=== PATIENT | male | born 1935 | race Caucasian/White ===

== ENCOUNTER 2017-04-16 00:20 | Inpatient (IN) ==
[2017-04-16] MEDS ORDERED: Naloxone 0.4 MG/ML INJ IVP PRN (00:24)
[2017-04-16] MEDS ORDERED: Ipratropium/Albuterol Neb 3 ML IH PRN (00:28)
[2017-04-16] MEDS ORDERED: Lacri-Lube 3.5 GM TUBE BOTH EYES PRN (00:47)
[2017-04-16] MEDS ORDERED: Dextrose Gel 15 GM PO PRN ×2 (00:58)
[2017-04-16] MEDS ORDERED: *HR* Dextrose 50 % in Water (Syg) 50 ML SYRINGE IVP PRN (00:58)
[2017-04-16] MEDS ORDERED: D5% in Water 1,000 ML IVC PRN (00:58)
[2017-04-16 01:28] LABS: ABG Base Excess -5 mEq/L (-2 to 3); ABG HCO3 25 mEq/L (21-27); ABG Oxygen Saturation 87 % (95-98); ABG PCO2 73 mmHg (35-45); ABG PH 7.14 pH Units (7.32-7.45); ABG PO2 71 mmHg (85-104); ABG TCO2 27 mEq/L (20-26); Blood Gas Modality PRVC; Blood Gas PEEP 8 cm H2O; Blood Gas Respiration Rate 14; Blood Gas VT 500 cc
[2017-04-16 01:40] LABS: Basophils % 0.2 %; Eosinophils # 0.1 K/mcL (0.0-0.6); Eosinophils % 0.5 %; Hematocrit 30.5 % (37.5-50.1); Hemoglobin 8.9 g/dL (12.9-16.9); Immature Platelets 3.7 % (1.1-6.1); Lymphocytes # 0.8 K/mcL (0.6-4.6); Lymphocytes % 6.6 %; Mean Corpuscular HGB Conc 29.2 g/dL (31.6-35.5); Mean Corpuscular Hemoglobin 24.7 pg (28.0-33.3); Mean Corpuscular Volume 84.7 fL (83.0-100.0); Mean Platelet Volume 10.3 fL (9.4-12.4); Monocytes # 0.9 K/mcL (0.0-1.3); Monocytes % 7.1 %; Neutrophils # 10.3 K/mcL (1.6-8.9); Platelet Count 236 K/mcL (140-400); Red Cell Distribution Width 16.7 % (11.5-14.5); Segmented Neutrophils % 84.6 %
--- NOTE | 2017-04-16 01:40 | Internal Med History&Physical ---
Date of Encounter: 04/16/17 Time of Encounter: 01:31 Assessment and Plan (1) Cardiac arrest Current visit: Yes Status: Acute likely 2/2 to COPD flare in the setting of medical co-morbidities Cooling protocol check TTE trend trop, repeat labs and coags cards, PCCM to assist in care. D/w [place] ED who communicated with cards, conservative management for now -felt EKG changes 2/2 respiratory pulm process recheck EKG in the a.m (2) Acute respiratory failure Current visit: Yes Status: Acute intubated duonebs IV steroids IV cefepime check ABG Repeat CXR , consider diuresis in the a.m. Hold IVF for now Qualifiers: Respiratory failure complication: hypoxia and hypercapnia Qualified Code(s) : J96.01 - Acute respiratory failure with hypoxia; J96.02 - Acute respiratory failure with hypercapnia; J96.02 - Acute respiratory failure with hypercapnia; J96.02 - Acute respiratory failure with hypercapnia (3) DMII (diabetes mellitus, type 2) Current visit: Yes Status: Acute insulin Qualifiers: Diabetes mellitus complication status: without complication Qualified Code( s): E11.9 - Type 2 diabetes mellitus without complications Internal Medicine - H&P: HPI Chief complaint: SOB History of present illness: Mr Cárdenas is a 81 yo male with hx of CAD s/ CABG, COPD, DMII, PAD who presents as a transfer from [facility] with respiratory failure c/b cardiac arrest s/p CPR, epinephrine with ROSC. Patient is intubated and is unable to provide hx. However, piece-meal hx obtained suggested that he push his medi-alert bracelet for SOB. EMS arrived on scene and found him to be in some respiratory distress but is talking and alert. While attempting to package patient to [place] ED, he went into cardiac arrrest. Intubation was attempted on arrival at [facility] before going into cardiac arrest again - drugs (epi,bicarb) and CPR. No shocks reported. I discussed the case with Dr Alvarez who had contacted cardiology business transformation analyst to discuss 2 EKG with recommendations for close support care at this time XR/XR chest 1V portable IMPRESSION: 1. The endotracheal tube tip is 5-6 cm above the haile. 2. Enteric tube in good position in the stomach. 3. Extensive bilateral airspace disease likely represents pulmonary edema though superimposed pneumonia could be present in the left perihilar region. EKG reviewed by self with 94, ST segment depression V3,4,5,6 Initial blood work revealed severe acidosis with pH 6.99, Bicarb 17 suggesting acute hypercarbia. Also has CKD wih some worsening of Cr to 2.44. Trop 0.16 Past Med Surg Social Fam HX - Past Medical History Medical history: non-contributory Psychiatric history: anxiety, depression - Past Surgical History Surgical History: appendectomy, colectomy, coronary bypass (CABG), orthopedic, other - Social History Smoking Status: Never smoker Smokeless Tobacco Status: No Alcohol use: rarely Drug use: none - Additional Family History Additional family history: HTN Internal Medicine - H&P: Meds Amiodarone HCl [Pacerone] 200 mg PO DAILY 02/04/16 [History] Atorvastatin Calcium 40 mg PO DAILY 02/04/16 [History] Exenatide [Byetta] 1.2 mcg SQ DAILY 02/04/16 [History] Levothyroxine [Synthroid] 50 mcg PO DAILY 02/04/16 [History] Sertraline [Zoloft] 50 mg PO DAILY 02/04/16 [History] Warfarin [Coumadin] 2.5 mg PO DAILY 02/04/16 [History] Warfarin [Coumadin] 5 mg PO DAILY 02/04/16 [History] Albuterol Neb [Proventil Neb] 2.5 mg IH Q2H PRN #0 inhsol 02/09/16 [Rx] Glimepiride [Amaryl] 2 mg PO 0730 tablet 02/09/16 [Rx] Insulin LISPRO [HumaLOG] 0 units SQ HS vial 02/09/16 [Rx] Insulin LISPRO [HumaLOG] 0 units SQ TIDAC vial 02/09/16 [Rx] Ipratropium/Albuterol Neb [Duoneb] 3 ml IH [id number] PRN #0 inhsol 02/09/16 [Rx] Patient Taking Own Medication 5 each SQ DAILY each 02/09/16 [Rx] Allopurinol [Zyloprim] 200 mg PO DAILY #60 tablet 02/19/16 [Rx] Ascorbic Acid [Vitamin C] 500 mg PO 0630 #30 tablet 02/19/16 [Rx] Ascorbic Acid [Vitamin C] 500 mg PO DAILY@0630 #30 tablet 02/19/16 [Rx] Bumetanide [Bumex] 1.5 mg PO DAILY #45 tablet 02/19/16 [Rx] Carvedilol [Coreg] 6.25 mg PO BIDWM #60 tablet 02/19/16 [Rx] Cholecalciferol (D-3) [Vitamin D] 2,000 unit PO DAILY #60 tablet 02/19/16 [Rx] Ferrous Sulfate 325 mg PO 0630 #30 tablet 02/19/16 [Rx] Isosorbide MONOnitrate (24 HR) [Imdur] 30 mg PO DAILY #30 tab.er.24h 02/19/16 [ Rx] 3 Allergy/AdvReac Type Severity Reaction Status Date / Time No Known Allergies Allergy Unverified 11/12/15 07:44 All Systems PM: A 10-system review of systems was performed and is negative for pertinent findings except as documented above in the HPI. Review of systems: ROS unable to obtain due to intubated, sedated state - Constitutional Vitals: Resp BP Pulse Ox 14 131/72 92 04/16/17 00:30 04/16/17 00:30 04/16/17 00:30 Exam: General - Intubated, not responsive Eyes - NEETU. Eye lids intact. No scleral icterus Neuro - Intubated, not responsive Heart - Sinus. RRR. S1 and S2 present. No added HS/murmurs appreciated. No elevated JVD appreciated. Lung - Adequate air entry b/l, Coarse ventilator BS. No crackles/wheezes appreciated GI - Soft, non-tender. No hepatosplenomegaly/ascites. BS+ - No CVA/suprapubic tenderness or palpable bladder distension Skin - Intact. No rash/petechiae/ecchymosis. Warm extremities MSK - Joints with normal ROM. No joint swellings Internal Med - H&P Results - ABG Interpretation ABG results: 04/16/17 01:24 ABG pH 7.14 L* D ABG pCO2 73 H* ABG pO2 71 L D ABG HCO3 25 ABG Total CO2 27 H ABG O2 Saturation 87 L ABG Base Excess -5 L
[2017-04-16 01:44] LABS: INR 1.6; Prothrombin Time 17.5 Seconds (9.4-12.1)
[2017-04-16 01:47] LABS: Activated Partial Thrombo Time 58.2 Seconds (26.0-36.0)
[2017-04-16 01:53] LABS: Albumin 2.4 g/dL (3.5-5.0); Albumin/Globulin Ratio 0.5 (1.1-2.2); Bilirubin,Total 0.7 mg/dL (0.2-1.2); Calcium 8.8 mg/dL (8.6-10.8); Globulin 4.4 g/dL (2.4-3.5); Total Protein 6.8 g/dL (6.0-8.3)
[2017-04-16] MEDS ORDERED: Cefepime HCl 2,000 MG in D5% in Water (Mini-Bag+) 100 ML IVPB SCH (02:00)
[2017-04-16 02:13] LABS: Potassium 6.7 mEq/L (3.5-4.5)
[2017-04-16] MEDS ORDERED: *HR* Dextrose 50 % in Water (Syg) 50 ML SYRINGE IVP ONE (02:17)
[2017-04-16] MEDS ORDERED: Calcium Chloride 1,000 MG in 0.9 % Sodium Chloride 100 ML IVPB ONE (02:17)
[2017-04-16] MEDS ORDERED: Insulin Human Regular 10 UNIT in 0.9 % Sodium Chloride 10 ML IV ONE (02:17)
[2017-04-16] MEDS: Cefepime HCl 2,000 MG in Water for inj. (sterile) 20 ML IVP SCH ×2 (02:31→13:58)
[2017-04-16] MEDS: Ipratropium/Albuterol Neb 3 ML IH SCH ×6 (03:08→23:26)
[2017-04-16 04:10] LABS: ABG Base Excess -2 mEq/L (-2 to 3); ABG HCO3 26 mEq/L (21-27); ABG Oxygen Saturation 89 % (95-98); ABG PCO2 67 mmHg (35-45); ABG PO2 71 mmHg (85-104); ABG TCO2 28 mEq/L (20-26); Blood Gas Modality PRVC; Blood Gas PEEP 8 cm H2O; Blood Gas Respiration Rate 18; Blood Gas VT 600 cc
[2017-04-16] MEDS: MethylPREDNISolone 40 MG/ML VIAL IVP SCH ×3 (05:08→18:36)
[2017-04-16] MEDS: FentaNYL (PF) 1,000 MCG in 0.9 % Sodium Chloride 80 ML IVC SCH ×2 (05:08→17:31)
[2017-04-16] MEDS: Lacri-Lube 3.5 GM TUBE BOTH EYES SCH ×5 (05:39→19:58)
[2017-04-16] MEDS: Insulin LISPRO 300 UNITS/3 ML VIAL SQ SCH ×4 (05:42→20:02)
[2017-04-16] MEDS ORDERED: Famotidine 20 MG/2 ML VIAL IVP SCH (06:00)
[2017-04-16] MEDS ORDERED: Aminoglycoside Consult 1 EACH MC ONE (07:39)
[2017-04-16] MEDS: Chlorhexidine Rinse 15 ML MOUTHWASH MM SCH ×2 (08:08→19:59)
[2017-04-16 08:11] LABS: INR 1.6; Prothrombin Time 17.7 Seconds (9.4-12.1)
[2017-04-16 08:14] LABS: Activated Partial Thrombo Time 30.9 Seconds (26.0-36.0)
[2017-04-16] MEDS ORDERED: Sodium Bicarbonate 150 MEQ in D5% in Water 1,000 ML IVC SCH (08:15)
[2017-04-16] MEDS: 0.9 % Sodium Chloride 1,000 ML IVC SCH ×2 (08:15→20:03)
[2017-04-16] MEDS ORDERED: *HR* Heparin 5,000 UNIT/ML VIAL IVP ONE (08:19)
[2017-04-16] MEDS ORDERED: *HR* Heparin 5,000 UNIT/ML VIAL IVP PRN ×2 (08:19)
[2017-04-16 08:31] LABS: Albumin 2.4 g/dL (3.5-5.0); Albumin/Globulin Ratio 0.6 (1.1-2.2); Bilirubin,Direct 0.5 mg/dL (0.0-0.5); Bilirubin,Indirect 0.4 mg/dL (0.0-1.2); Bilirubin,Total 0.9 mg/dL (0.2-1.2); Calcium 9.6 mg/dL (8.6-10.8); Globulin 3.9 g/dL (2.4-3.5); Phosphorous 2.7 mg/dL (2.3-4.7); Total Protein 6.3 g/dL (6.0-8.3)
[2017-04-16 08:33] LABS: Potassium 5.6 mEq/L (3.5-4.5)
[2017-04-16 08:43] LABS: Basophils % 0.1 %; Hematocrit 26.7 % (37.5-50.1); Hemoglobin 7.9 g/dL (12.9-16.9); Immature Granulocytes % 0.7 % (0-4); Lymphocytes # 0.4 K/mcL (0.6-4.6); Lymphocytes % 4.3 %; Mean Corpuscular HGB Conc 29.6 g/dL (31.6-35.5); Mean Corpuscular Hemoglobin 24.3 pg (28.0-33.3); Mean Corpuscular Volume 82.2 fL (83.0-100.0); Mean Platelet Volume 11.2 fL (9.4-12.4); Monocytes # 0.4 K/mcL (0.0-1.3); Monocytes % 4.5 %; Neutrophils # 8.7 K/mcL (1.6-8.9); Nucleated Red Blood Cells 0.2 /100 WBC (0); Platelet Count 204 K/mcL (140-400); Red Blood Count 3.25 M/mcL (4.19-5.50); Red Cell Distribution Width 16.6 % (11.5-14.5); Segmented Neutrophils % 90.4 %
[2017-04-16] MEDS ORDERED: Aspirin 325 MG TABLET PO SCH (09:00)
[2017-04-16] MEDS ORDERED: Vancomycin 1,750 MG in D5% in Water 250 ML IVPB SCH (09:00)
[2017-04-16] MEDS ORDERED: Vancomycin 1,750 MG in D5% in Water 500 ML IVPB SCH (09:00)
[2017-04-16] MEDS: Heparin 25,000 UNIT/500 ML D5W 25,000 UNIT/500 ML BAG IVC SCH (09:14)
[2017-04-16] MEDS: Docusate Oral Soln 100 MG/10 ML UDC GTUBE SCH ×2 (09:18→19:58)
--- NOTE | 2017-04-16 10:31 | Nephrology Consult Note ---
Date of Encounter: 04/16/17 Time of Encounter: 10:16 Assessment and Plan (1) Acute renal failure (ARF) Current Visit: Yes Status: Acute 1. ARF; has ATN sec to hypotension from Cardiac arrest. Has underlying CKD with baseline cr of 1.7-2. Oligoanuric with urine output of 10 ML serum potassium is improving from 6.7 to 5.6 combination of respiration and metabolic acidosis on admission. PH, PCO2 and bicarb are improving Check UA, Renal ultrasound, continue IV fluids with bicarb repeat potassium today. Follow-up Renal panel in a.m. no acute indication for HD today, will need in the next few days if renal function does not improve 2. cardiopulmonary arrest. Has NSTEMI. Troponin trended upto 24. pend 2d echo. on Iv heparin. CXR; improving air space disease Qualifiers: Acute renal failure type: with acute tubular necrosis Qualified Code(s): N17.0 - Acute kidney failure with tubular necrosis History of Present Illness - Reason for Consult Acute Kidney Injury - Chief Complaint ARF - History of Present Illness Pt is a 81-year-old male with CAD, CABG, COPD, diabetes, PAD and CKD. History obtained from chart. EMS was dispatched for shortness of breath. Pt was found to be in cardiopulmonary arrest, did not require shock, CPR was done and taken to [place] [facility]. ABG; pH 6.9, PCO2 72, bicarb 18 done while pt was being bagged. BP 136/83, pulse 77 He was intubated, had another episode of cardiac arrest during incubation. Received Epi and sodium bicarb. Labs significant for; creatinine 2.4, potassium 6.6, bicarb 17, BUN 46, troponin 0.16 chest x-ray; joe air space disease, pulmonary edema/pneumonia 12 lead EKG; ST depression in anterio lateral leads received calcium chloride, insulin D50 and PO kayexalate once at [facility], IV heparin was started and transferred to [place] ICU. He was Currently on fentanyl, IV heparin, D5W with 1 AMP of sodium bicarb at 100 ml/hr Past Med Surg Social Fam HX - Past Medical History Medical history: non-contributory Psychiatric history: anxiety, depression - Past Surgical History Surgical History: appendectomy, colectomy, coronary bypass (CABG), orthopedic, other - Social History Smoking Status: Never smoker Smokeless Tobacco Status: No Alcohol use: rarely Drug use: none Medications and Allergies Amiodarone HCl [Pacerone] 200 mg PO DAILY 02/04/16 [History] Atorvastatin Calcium 40 mg PO DAILY 02/04/16 [History] Exenatide [Byetta] 1.2 mcg SQ DAILY 02/04/16 [History] Levothyroxine [Synthroid] 50 mcg PO DAILY 02/04/16 [History] Sertraline [Zoloft] 50 mg PO DAILY 02/04/16 [History] Warfarin [Coumadin] 2.5 mg PO DAILY 02/04/16 [History] Warfarin [Coumadin] 5 mg PO DAILY 02/04/16 [History] Albuterol Neb [Proventil Neb] 2.5 mg IH Q2H PRN #0 inhsol 02/09/16 [Rx] Glimepiride [Amaryl] 2 mg PO 0730 tablet 02/09/16 [Rx] Insulin LISPRO [HumaLOG] 0 units SQ HS vial 02/09/16 [Rx] Insulin LISPRO [HumaLOG] 0 units SQ TIDAC vial 02/09/16 [Rx] Ipratropium/Albuterol Neb [Duoneb] 3 ml IH [id number] PRN #0 inhsol 02/09/16 [Rx] Patient Taking Own Medication 5 each SQ DAILY each 02/09/16 [Rx] Allopurinol [Zyloprim] 200 mg PO DAILY #60 tablet 02/19/16 [Rx] Ascorbic Acid [Vitamin C] 500 mg PO 0630 #30 tablet 02/19/16 [Rx] Ascorbic Acid [Vitamin C] 500 mg PO DAILY@0630 #30 tablet 02/19/16 [Rx] Bumetanide [Bumex] 1.5 mg PO DAILY #45 tablet 02/19/16 [Rx] Carvedilol [Coreg] 6.25 mg PO BIDWM #60 tablet 02/19/16 [Rx] Cholecalciferol (D-3) [Vitamin D] 2,000 unit PO DAILY #60 tablet 02/19/16 [Rx] Ferrous Sulfate 325 mg PO 0630 #30 tablet 02/19/16 [Rx] Isosorbide MONOnitrate (24 HR) [Imdur] 30 mg PO DAILY #30 tab.er.24h 02/19/16 [ Rx] 3 Allergy/AdvReac Type Severity Reaction Status Date / Time No Known Allergies Allergy Unverified 11/12/15 07:44 Review of Systems ROS unobtainable: due to endotracheal tube, other Exam - Vital Signs Vital signs: Initial Vital Signs Resp BP Pulse Ox 14 131/72 92 04/16/17 00:30 04/16/17 00:30 04/16/17 00:30 Vital Signs - Last 8 Hours Temp Pulse Resp BP Pulse Ox 04/16/17 08:05 69 22 114/54 95 04/16/17 07:50 98.0 F 04/16/17 07:34 58 98 04/16/17 07:19 60 22 114/54 97 04/16/17 06:00 78 18 99/50 95 04/16/17 05:25 22 134/64 95 04/16/17 05:05 98 F 04/16/17 05:00 94 21 127/68 92 04/16/17 04:00 97 18 125/69 93 04/16/17 03:08 18 146/66 95 04/16/17 03:00 97.6 F 98 18 146/66 97 Intake and Output 04/15/17 04/16/17 04/16/17 23:59 07:59 15:59 Intake Total 143.4 / 143.4 Output Total 0 / 0 Balance 143.4 / 143.4 Intake: IV Fluids 143.4 / 143.4 HumuLIN R 10 UNIT In Normal 10.1 / 10.1 Saline Flush 10 ML @ 1212 mls/ hr IV ONCE ONE Rx#:[id number] FentaNYL (PF) 1,000 MCG In 0.9 3.3 / 3.3 % Sodium Chloride 80 ML @ 50 MCG/HR 5 mls/hr IVC CONT RADHA Rx #:[id number] Maxipime 2,000 MG In Water for 20 / 20 inj. (sterile) 20 ML @ 300 mls/ hr IVP Q12H [facility] Rx#:[id number] Calcium Chloride 1,000 MG In 0. 110 / 110 9 % Sodium Chloride 100 ML @ 100 mls/hr IVPB ONCE ONE Rx#: [id number] Oral 0 / 0 Output: Urine 0 / 0 Catheter 0 / 0 Other: Weight 119.7 kg Blood Glucose* 213 Patient Weight 04/16/17 23:59 Weight 119.7 kg - General Appearance Exam: CVS; s1s2 present, regular, no murmurs RESP; good air entry, clear anteriorly ABD; soft, BT, BS present, no organomegaly EXT; no edema, PT pulses palpably by Doppler SAMPLE PULLER; intubated and sedated. Trying to move his head spontaneously Results - Lab Results 04/16/17 07:55 04/16/17 07:55 Most recent lab results ABG pH 7.20 pH Units (7.32-7.45) L* 04/16/17 04:04 ABG pCO2 67 mmHg (35-45) H 04/16/17 04:04 ABG pO2 71 mmHg (85-104) L 04/16/17 04:04 ABG HCO3 26 mEq/L (21-27) 04/16/17 04:04 ABG O2 Saturation 89 % (95-98) L 04/16/17 04:04 Calcium 9.6 mg/dL (8.6-10.8) 04/16/17 07:55 Phosphorus 2.7 mg/dL (2.3-4.7) 04/16/17 07:55 Magnesium 2.0 mg/dL (1.6-2.6) 04/16/17 07:55 Consult Discharge Plan - Plan Referrals: Priyank Guajardo MD [Primary Care Provider] -
[2017-04-16 11:55] LABS: ABG Base Excess 0 mEq/L (-2 to 3); ABG HCO3 25 mEq/L (21-27); ABG Oxygen Saturation 95 % (95-98); ABG PCO2 42 mmHg (35-45); ABG PH 7.39 pH Units (7.32-7.45); ABG PO2 77 mmHg (85-104); ABG TCO2 27 mEq/L (20-26); Blood Gas Modality VS; Blood Gas PEEP 10 cm H2O; Blood Gas Respiration Rate 22; Blood Gas VT 600 cc
--- NOTE | 2017-04-16 13:29 | Pulmonology Consult Note ---
<Daysi Palafox - Last Filed: 04/16/17 13:26> Date of Encounter: 04/16/17 Time of Encounter: 08:00 Assessment and Plan (1) Acute and chronic respiratory failure with hypercapnia Current Visit: Yes Status: Acute Cardiac arrest just prior to arrival likely secondary to COPD flare in the setting of medical comorbidities. -Patient's GCS 9, therefore no cooling per protocol. -Cardiology at [facility] prior to arrival recommending conservative management, felt EKG changes were secondary to respiratory/pulmonary process. -Patient currently intubated. -Dual nebs, IV steroids, IV cefepime, IV vancomycin, and IV Flagyl started on April 16. -Follow-up ABGs closely. (2) [id number] kidney injury Current Visit: Yes Status: Acute VAHID likely causing NG acidosis superimposed on respiratory acidosis. -bicarb drip -Await nephrology recommendations Qualifiers: Acute renal failure type: unspecified Chronic kidney disease stage: unspecified stage Qualified Code(s): N17.9 - Acute kidney failure, unspecified ; N18.9 - Chronic kidney disease, unspecified; N18.9 - Chronic kidney disease, unspecified (3) Pulmonary edema Current Visit: Yes Status: Acute CXR 04/16- suspected right PE with increasing right basilar atelectasis or PNA. Improving pulmonary edema -Superimposed PNA- continue broad spectrum Abx coverage with vanc, cefepime, and flagyl as above. Qualifiers: Chronicity: acute Qualified Code(s): J81.0 - Acute pulmonary edema (4) CHF (congestive heart failure) Current Visit: Yes Status: Acute CXR with improving pulmonary edema. Echo on 04/16 LVEF 55-60%. -suspect diastolic dysfunction or new onset systolic dysfunction. -Await cardiology recommendations. -Start low dose heparin per ACS protocol. -Asprin 325 through OG tube. Qualifiers: Congestive heart failure type: diastolic Congestive heart failure chronicity: unspecified congestive heart failure chronicity Qualified Code(s) : I50.30 - Unspecified diastolic (congestive) heart failure (5) COPD (chronic obstructive pulmonary disease) Current Visit: No Status: Acute Continue duonebs and steroids. Qualifiers: COPD type: unspecified COPD Qualified Code(s): J44.9 - Chronic obstructive pulmonary disease, unspecified (6) Elevated troponin Current Visit: No Status: Acute Troponin 44.71 up from 24.7. Heparin drip per ACS protocol. -Await cardiology recommendations (7) Cardiac arrest Current Visit: Yes Status: Acute Patient s/p cardiac arrest en route to [place] [facility] ED x2 receiving two rounds of CPR, epinepherine, and 2 amps of sodium bicarbonate. -Patient still acidotic when arrived on ICU. -Bicarb drip and ventilator management. (8) DVT prophylaxis Current Visit: Yes Status: Acute Patient currently on heparin drip per ACS protocol. - Pepcid for GI prophylaxis History of Present Illness Consult date: 04/16/17 Requesting physician: Reinaldo Castillo Reason for consult: dyspnea Chief complaint: Shortness of breath History of present illness: Mr. Cárdenas is a 81-year-old male with history of coronary artery disease status post CABG, COPD, DM 2, PhD who presents as a transfer from [facility] ED with respiratory failure complicated by cardiac arrest status post CPR with epinephrine resulting in ROSC. Patient is intubated and currently unavailable to provide history. Patient presents to medical alert [facility] and EMS arrived on scene and found him to be in respiratory distress but alert and talking. During transferred to [facility] emergency department, the patient went into cardiac arrest. Intubation was attempted on arrival at [facility] the before going into cardiac arrest again. Epinephrine and bicarbonate were given along with CPR. No shocks were reported. This morning upon arrival to the ICU, the patient's blood pressure has been stable with oxygen saturation in the mid 90s. Patient was given sodium bicarbonate for acidosis on ABG. A sodium bicarbonate drip was also immediately began. Past Med Surg Social Fam HX - Past Medical History Source: old records reviewed Medical history: non-contributory Psychiatric history: anxiety, depression - Past Surgical History Surgical History: appendectomy, colectomy, coronary bypass (CABG), orthopedic, other - Social History Smoking Status: Never smoker Smokeless Tobacco Status: No Alcohol use: rarely Drug use: none Medications and Allergies Amiodarone HCl [Pacerone] 200 mg PO DAILY 02/04/16 [History] Atorvastatin Calcium 40 mg PO DAILY 02/04/16 [History] Exenatide [Byetta] 1.2 mcg SQ DAILY 02/04/16 [History] Levothyroxine [Synthroid] 50 mcg PO DAILY 02/04/16 [History] Sertraline [Zoloft] 50 mg PO DAILY 02/04/16 [History] Warfarin [Coumadin] 2.5 mg PO DAILY 02/04/16 [History] Warfarin [Coumadin] 5 mg PO DAILY 02/04/16 [History] Albuterol Neb [Proventil Neb] 2.5 mg IH Q2H PRN #0 inhsol 02/09/16 [Rx] Glimepiride [Amaryl] 2 mg PO 0730 tablet 02/09/16 [Rx] Insulin LISPRO [HumaLOG] 0 units SQ HS vial 02/09/16 [Rx] Insulin LISPRO [HumaLOG] 0 units SQ TIDAC vial 02/09/16 [Rx] Ipratropium/Albuterol Neb [Duoneb] 3 ml IH [id number] PRN #0 inhsol 02/09/16 [Rx] Patient Taking Own Medication 5 each SQ DAILY each 02/09/16 [Rx] Allopurinol [Zyloprim] 200 mg PO DAILY #60 tablet 02/19/16 [Rx] Ascorbic Acid [Vitamin C] 500 mg PO 0630 #30 tablet 02/19/16 [Rx] Ascorbic Acid [Vitamin C] 500 mg PO DAILY@0630 #30 tablet 02/19/16 [Rx] Bumetanide [Bumex] 1.5 mg PO DAILY #45 tablet 02/19/16 [Rx] Carvedilol [Coreg] 6.25 mg PO BIDWM #60 tablet 02/19/16 [Rx] Cholecalciferol (D-3) [Vitamin D] 2,000 unit PO DAILY #60 tablet 02/19/16 [Rx] Ferrous Sulfate 325 mg PO 0630 #30 tablet 02/19/16 [Rx] Isosorbide MONOnitrate (24 HR) [Imdur] 30 mg PO DAILY #30 tab.er.24h 02/19/16 [ Rx] 3 Allergy/AdvReac Type Severity Reaction Status Date / Time No Known Allergies Allergy Unverified 11/12/15 07:44 ROS unobtainable: due to endotracheal tube All Systems: A 10-system review of systems was performed and is negative for pertinent findings except as documented above in the HPI. Physical Examination Vital Signs: Vital Signs, Last 4 Hours Temp Pulse Resp BP Pulse Ox 04/16/17 12:18 99.1 F 04/16/17 11:11 58 22 122/37 96 12/03/17 11:06 22 122/37 96 04/16/17 10:23 60 22 131/39 96 General appearance: comatose (Sedated and intubated) Eyes: nonicteric ENT: oropharynx moist Neck: supple Effort: other (Intubated) Auscultation: bilateral: rales Cardiovascular: regular rate and rhythm, other (Patient with large scar over the mediastinum consistent with CABG.) Gastrointestinal: normoactive bowel sounds, soft, non-distended Integumentary: normal Extremities: no cyanosis, no edema, pulses normal unable to assess due to mental status Ventilator Settings Ventilator Settings: Ventilator Settings, Last 8 Hours Ventilator Mode VC+ Ventilator Mode VC+ Ventilator Mode VC+ Ventilator Mode VC+ Ventilator Mode VC+ Ventilator Mode VC+ Ventilator Mode VC+ Ventilator Mode VC+ Ventilator Mode VC+ Ventilator Mode VC+ Ventilator Tidal Volume 600 Setting Ventilator Tidal Volume 600 Setting Ventilator Tidal Volume 600 Setting Ventilator Tidal Volume 600 Setting Ventilator Tidal Volume 600 Setting Ventilator Tidal Volume 600 Setting Ventilator Tidal Volume 600 Setting Ventilator Tidal Volume 600 Setting Ventilator Tidal Volume 600 Setting Ventilator Tidal Volume 600 Setting Ventilator Respiratory Rate 22 Setting Ventilator Respiratory Rate 22 Setting Ventilator Respiratory Rate 22 Setting Ventilator Respiratory Rate 22 Setting Ventilator Respiratory Rate 22 Setting Ventilator Respiratory Rate 22 Setting Ventilator Respiratory Rate 22 Setting Ventilator Respiratory Rate 22 Setting Ventilator Respiratory Rate 18 Setting Ventilator Respiratory Rate 18 Setting Actual Respiratory Rate 22 Actual Respiratory Rate 22 Actual Respiratory Rate 22 Actual Respiratory Rate 22 Actual Respiratory Rate 22 Actual Respiratory Rate 22 Actual Respiratory Rate 22 Actual Respiratory Rate 22 Actual Respiratory Rate 18 Positive End Expiratory 10 Pressure Positive End Expiratory 10 Pressure Positive End Expiratory 10 Pressure Positive End Expiratory 10 Pressure Positive End Expiratory 10 Pressure Positive End Expiratory 10 Pressure Positive End Expiratory 10 Pressure Positive End Expiratory 10 Pressure Positive End Expiratory 10 Pressure Positive End Expiratory 8 Pressure Peak Inspiratory Airway 39 Pressure Peak Inspiratory Airway 32 Pressure Peak Inspiratory Airway 34 Pressure Peak Inspiratory Airway 33 Pressure Peak Inspiratory Airway 32 Pressure Peak Inspiratory Airway 33 Pressure Peak Inspiratory Airway 42 Pressure Peak Inspiratory Airway 25 Pressure Results - Laboratory Findings CBC and BMP: 04/16/17 07:55 04/16/17 07:55 ABG ABG pH 7.39 pH Units (7.32-7.45) 04/16/17 11:49 ABG pCO2 42 mmHg (35-45) 04/16/17 11:49 ABG pO2 77 mmHg (85-104) L 04/16/17 11:49 ABG O2 Saturation 95 % (95-98) 04/16/17 11:49 PT/INR, D-dimer PT 17.7 Seconds (9.4-12.1) H 04/16/17 07:55 Abnormal lab findings: Abnormal lab results RBC 3.25 M/mcL (4.19-5.50) L 04/16/17 07:55 Hgb 7.9 g/dL (12.9-16.9) L 04/16/17 07:55 Hct 26.7 % (37.5-50.1) L 04/16/17 07:55 MCV 82.2 fL (83.0-100.0) L 04/16/17 07:55 MCH 24.3 pg (28.0-33.3) L 04/16/17 07:55 MCHC 29.6 g/dL (31.6-35.5) L 04/16/17 07:55 RDW 16.6 % (11.5-14.5) H 04/16/17 07:55 Lymphocytes # 0.4 K/mcL (0.6-4.6) L 04/16/17 07:55 Nucleated RBCs/100 WBC 0.2 /100 WBC (0) H 04/16/17 07:55 PT 17.7 Seconds (9.4-12.1) H 04/16/17 07:55 ABG pO2 77 mmHg (85-104) L 04/16/17 11:49 ABG Total CO2 27 mEq/L (20-26) H 04/16/17 11:49 Potassium 5.6 mEq/L (3.5-4.5) H D 04/16/17 07:55 Chloride 114 mEq/L (98-109) H 04/16/17 07:55 BUN 54 mg/dL (8-26) H 04/16/17 07:55 Creatinine 2.98 mg/dL (0.72-1.25) H 04/16/17 07:55 Est GFR ( Amer) 25 (> 60) L 04/16/17 07:55 Est GFR (Non-Af Amer) 20 (> 60) L 04/16/17 07:55 Glucose 187 mg/dL (70-99) H 04/16/17 07:55 POC Glucose 322 (58-89) H 04/16/17 11:50 Calculated Osmolality 320 (280-300) H 04/16/17 07:55 AST 125 Units/L (5-34) H 04/16/17 07:55 ALT 84 Units/L (0-55) H 04/16/17 07:55 Troponin I 24.70 ng/mL (0-0.03) H* 04/16/17 07:55 Albumin 2.4 g/dL (3.5-5.0) L 04/16/17 07:55 Globulin 3.9 g/dL (2.4-3.5) H 04/16/17 07:55 Albumin/Globulin Ratio 0.6 (1.1-2.2) L 04/16/17 07:55 - Clinical Findings Intake & Output: Intake & Output 04/15/17 04/16/17 04/16/17 23:59 07:59 15:59 Intake Total 143.4 / 143.4 Output Total 0 / 0 50 / 50 Balance 143.4 / 143.4 -50 / -50 Weight 119.7 kg Consult Discharge Plan - Plan Referrals: Priyank Guajardo MD [Primary Care Provider] - <Josette Calle S - Last Filed: 04/16/17 15:27> Date of Encounter: 04/16/17 All Systems: A 10-system review of systems was performed and is negative for pertinent findings except as documented above in the HPI. Physical Examination Vital Signs: Vital Signs, Last 4 Hours Temp Pulse Resp BP Pulse Ox 04/16/17 13:30 22 149/43 96 04/16/17 13:00 60 23 149/43 97 04/16/17 12:18 99.1 F 04/16/17 11:11 58 22 122/37 96 04/16/17 11:06 22 122/37 96 Ventilator Settings Ventilator Settings: Ventilator Settings, Last 8 Hours Ventilator Mode VC+ Ventilator Mode VC+ Ventilator Mode VC+ Ventilator Mode VC+ Ventilator Mode VC+ Ventilator Mode VC+ Ventilator Mode VC+ Ventilator Mode VC+ Ventilator Mode VC+ Ventilator Mode VC+ Ventilator Tidal Volume 600 Setting Ventilator Tidal Volume 600 Setting Ventilator Tidal Volume 600 Setting Ventilator Tidal Volume 600 Setting Ventilator Tidal Volume 600 Setting Ventilator Tidal Volume 600 Setting Ventilator Tidal Volume 600 Setting Ventilator Tidal Volume 600 Setting Ventilator Tidal Volume 600 Setting Ventilator Tidal Volume 600 Setting Ventilator Respiratory Rate 22 Setting Ventilator Respiratory Rate 22 Setting Ventilator Respiratory Rate 22 Setting Ventilator Respiratory Rate 22 Setting Ventilator Respiratory Rate 22 Setting Ventilator Respiratory Rate 22 Setting Ventilator Respiratory Rate 22 Setting Ventilator Respiratory Rate 22 Setting Ventilator Respiratory Rate 22 Setting Ventilator Respiratory Rate 18 Setting Actual Respiratory Rate 23 Actual Respiratory Rate 22 Actual Respiratory Rate 22 Actual Respiratory Rate 22 Actual Respiratory Rate 22 Actual Respiratory Rate 22 Actual Respiratory Rate 22 Actual Respiratory Rate 22 Actual Respiratory Rate 22 Positive End Expiratory 10 Pressure Positive End Expiratory 10 Pressure Positive End Expiratory 10 Pressure Positive End Expiratory 10 Pressure Positive End Expiratory 10 Pressure Positive End Expiratory 10 Pressure Positive End Expiratory 10 Pressure Positive End Expiratory 10 Pressure Positive End Expiratory 10 Pressure Positive End Expiratory 10 Pressure Peak Inspiratory Airway 33 Pressure Peak Inspiratory Airway 39 Pressure Peak Inspiratory Airway 32 Pressure Peak Inspiratory Airway 34 Pressure Peak Inspiratory Airway 33 Pressure Peak Inspiratory Airway 32 Pressure Peak Inspiratory Airway 33 Pressure Peak Inspiratory Airway 42 Pressure Results - Laboratory Findings CBC and BMP: 04/16/17 07:55 04/16/17 07:55 ABG ABG pH 7.39 pH Units (7.32-7.45) 04/16/17 11:49 ABG pCO2 42 mmHg (35-45) 04/16/17 11:49 ABG pO2 77 mmHg (85-104) L 04/16/17 11:49 ABG O2 Saturation 95 % (95-98) 04/16/17 11:49 PT/INR, D-dimer PT 17.7 Seconds (9.4-12.1) H 04/16/17 07:55 Abnormal lab findings: Abnormal lab results RBC 3.25 M/mcL (4.19-5.50) L 04/16/17 07:55 Hgb 7.9 g/dL (12.9-16.9) L 04/16/17 07:55 Hct 26.7 % (37.5-50.1) L 04/16/17 07:55 MCV 82.2 fL (83.0-100.0) L 04/16/17 07:55 MCH 24.3 pg (28.0-33.3) L 04/16/17 07:55 MCHC 29.6 g/dL (31.6-35.5) L 04/16/17 07:55 RDW 16.6 % (11.5-14.5) H 04/16/17 07:55 Lymphocytes # 0.4 K/mcL (0.6-4.6) L 04/16/17 07:55 Nucleated RBCs/100 WBC 0.2 /100 WBC (0) H 04/16/17 07:55 PT 17.7 Seconds (9.4-12.1) H 04/16/17 07:55 ABG pO2 77 mmHg (85-104) L 04/16/17 11:49 ABG Total CO2 27 mEq/L (20-26) H 04/16/17 11:49 Potassium 5.6 mEq/L (3.5-4.5) H D 04/16/17 07:55 Chloride 114 mEq/L (98-109) H 04/16/17 07:55 BUN 54 mg/dL (8-26) H 04/16/17 07:55 Creatinine 2.98 mg/dL (0.72-1.25) H 04/16/17 07:55 Est GFR ( Amer) 25 (> 60) L 04/16/17 07:55 Est GFR (Non-Af Amer) 20 (> 60) L 04/16/17 07:55 Glucose 187 mg/dL (70-99) H 04/16/17 07:55 POC Glucose 322 (58-89) H 04/16/17 11:50 Calculated Osmolality 320 (280-300) H 04/16/17 07:55 Uric Acid 10.0 mg/dL (3.5-7.2) H 04/16/17 13:25 AST 125 Units/L (5-34) H 04/16/17 07:55 ALT 84 Units/L (0-55) H 04/16/17 07:55 Troponin I 44.71 ng/mL (0-0.03) H* 04/16/17 13:25 B-Natriuretic Peptide 1199 pg/mL (0-100) H 04/16/17 13:25 Albumin 2.4 g/dL (3.5-5.0) L 04/16/17 07:55 Globulin 3.9 g/dL (2.4-3.5) H 04/16/17 07:55 Albumin/Globulin Ratio 0.6 (1.1-2.2) L 04/16/17 07:55 - Clinical Findings Intake & Output: Intake & Output 04/15/17 04/16/17 04/16/17 23:59 07:59 15:59 Intake Total 143.4 / 143.4 Output Total 0 / 0 50 / 50 Balance 143.4 / 143.4 -50 / -50 Weight 119.7 kg - Attending Attestation I saw the patient with the resident agree with History and Physical exam findings. Labs and Radiology were reviewed Ventilator data were reviewed will adjust TV and RR to lung protective strategy and to optimize Gas Exchange ROOF TECHNICIAN: Patient is intubated and minimally sedated , Post Cardiac arrest , patient has spontaneous movements opens his eyes to verbal commands Pupils slighlty unequal no focal neurological deficit Will get CT scan without contrast NECK : JVD could not be appreciated Pulmonary :Patient has history of COPD , According to history from family doesnt look like COPD exacerbation most likely the sudden distress due to pulmonary edema worsening of diastolic dysfunction secondary to NSTEMI , will do lung protective strategy , will add PEEP 10 , will bring down to FIO2 60% Patient has Mixed both respiratory and non gap acidosis adjusted the vent settings will repeat blood gas Lung mechanics decent no evidence of Auto PEEP will follow lung mechanics . Will hold of diuresis in the setting of Acute on Chronic Kidney injury with possible left heart cath later Cardiac : NSTEMI ACS protocol , ECHO today showed EF 55-60% , suboptimal study wall motion abnormality cannot be seen in the study . Aspirin , Heparin Low intensity protocol . Possible cath today waiting for Crdiology recs Nutrition/GI: NPO /PPI prophylaxis Renal :Acute on Chronic Kidney injury Non gap acidosis will start IV bicarb drip will give 1 liter and stop then we ill reasses the acid base balance Heme onc :All labs reviewed no active signs of bleeding . ID : Patient has possible superimposed infiltrates in the CXR will start on broad spectrum antibiotics to send sputum culture, urine culture , blood culture Musculo skeletal / skin issues : No acute issues Disposition : Critically ill Code status: Full Code Family/POA: Updated Daughter , Brother and Sister . Spent about 40 minutes of Critical care time in medical decision making in supporting the vital organ function and preventing further decline .
[2017-04-16 15:00] LABS: Hemoglobin 7.2 g/dL (12.9-16.9); Mean Corpuscular Hemoglobin 24.2 pg (28.0-33.3); Mean Corpuscular Volume 80.8 fL (83.0-100.0); Mean Platelet Volume 10.6 fL (9.4-12.4); Platelet Count 189 K/mcL (140-400); Red Blood Count 2.97 M/mcL (4.19-5.50); Red Cell Distribution Width 16.7 % (11.5-14.5)
[2017-04-16 15:05] LABS: INR 1.8; Prothrombin Time 19.8 Seconds (9.4-12.1)
[2017-04-16 15:09] LABS: Activated Partial Thrombo Time 63.7 Seconds (26.0-36.0)
[2017-04-16 16:07] LABS: Potassium 4.9 mEq/L (3.5-4.5)
--- NOTE | 2017-04-16 16:42 | Cardiology Consult Note ---
Date of Encounter: 04/16/17 Time of Encounter: 15:30 Assessment and Plan (1) Cardiac arrest Current Visit: Yes Status: Acute Cardiopulmonary arrest likely multifactorial. May have had acute SOB due to diastolic CHF in setting of worsening renal function and hyperkalemia. Also could be COPD exacerbation. Unclear what rhythm pt had upon arrival of EMS, but sounds like may have been PEA. No records available for my review. No rhythms requiring defibrillation per records. EKG does not demonstrate any evidence of STEMI. Cardiac enzymes markedly elevated in setting of cardiopulmonary arrest. At this time, pt not candidate for invasive evaluation due to worsening anemia, acute renal failure, unclear neurologic status. No evidence of shock, echocardiogram demonstrates normal LV function EF 55-60%. Wall motion abnormalities cannot be excluded due to technical limitations of study. Will follow closely. Continue supportive care. Timing of cardiac catheterization pending renal and neurologic status. (2) Non-STEMI (non-ST elevated myocardial infarction) Current Visit: Yes Status: Acute Aggressive medical therapy. Possible LHC pending neurologic and renal status. (3) Coronary artery disease Current Visit: Yes Status: Chronic Qualifiers: Coronary Disease-Associated Artery/Lesion type: [place] artery [place] vs. transplanted heart: [place] heart Associated angina: angina presence unspecified Qualified Code(s): I25.10 - Atherosclerotic heart disease of [place] coronary artery without angina pectoris (4) S/P CABG (coronary artery bypass graft) Current Visit: No Status: Chronic (5) PVD (peripheral vascular disease) Current Visit: No Status: Chronic (6) Acute on chronic renal insufficiency Current Visit: Yes Status: Acute Nephrology following. (7) COPD (chronic obstructive pulmonary disease) Current Visit: Yes Status: Chronic Qualifiers: COPD type: unspecified COPD Qualified Code(s): J44.9 - Chronic obstructive pulmonary disease, unspecified (8) Hyperkalemia Current Visit: Yes Status: Acute Being corrected by nephrology and primary team. (9) Respiratory failure Current Visit: Yes Status: Acute Currently on mechanical ventilation. Pulmonary following. Qualifiers: Chronicity: acute Respiratory failure complication: hypoxia and hypercapnia Qualified Code(s): J96.01 - Acute respiratory failure with hypoxia ; J96.02 - Acute respiratory failure with hypercapnia; J96.02 - Acute respiratory failure with hypercapnia; J96.02 - Acute respiratory failure with hypercapnia Discussion w patient/family: The assessment and plan as outlined above was discussed with the patient and/or family members who expressed understanding and agreement. All questions were answered. Thank you for involving us in the care of your patient. Please call with any questions. History of Present Illness Consult date: 04/16/17 Consult reason: cardiac arrest Chief complaint: cardiopulmonary arrest History of present illness: Mr. Cárdenas is a 81 year old male with CAD s/p CABG, PVD, COPD, DM, PAF presents as transfer from [facility] after cardiopulmonary arrest. Pt currently intubated, sedated and unable to provide any history. All history obtained from medical records, current chart. Per records, pt had SOB while at home and activated medical alert. Per [place] [facility] notes, pt was unresponsive and in cardiac arrest upon arrival with bystander CPR. Also per [place] ED notes, pt had 20min downtime before ACLS arrival. Reportedly received CPR, epinephrine x2 prior to arrival at [place] ED. No defibrillation. Had ROSC prior to arrival at [facility] with Adams airway in place. No EMS records available for my review. While at [place] ED, had emergent intubation. During intubation, pt had bradycardia and ?PEA- had CPR, epinephrine, bicarb with ROSC. Initial EKG demonstrated idioventricular rhythm. Repeat EKG demonstrated sinus tachycardia with ST depression in precordial leads. Noted to be hyperkalemic with K+ 6.6 and Cr 2.44. Hb 8.8. Initial ABG 6.99/72 /114/18. Transferred to [facility] for further evaluation/tx. Has known history of CAD. [place] CAB[place] [address] Rafat DELEON to LAD, seq SVG to diag 2, OM1, SVG to R PDA. Also has known PVD- fem-fem bypass as well as known L subclavian stenosis. Past Med Surg Social Fam HX - Past Medical History Source: old records reviewed, nursing notes reviewed Medical history: COPD, coronary artery disease, CVA, diabetes, hyperlipidemia, hypertension, peripheral artery disease, renal disease Psychiatric history: anxiety, depression - Past Surgical History Surgical History: appendectomy, cholecystectomy, colectomy, coronary bypass ( CABG), LE Bypass, orthopedic, other, vascular surgery - Social History Smoking Status: Former smoker (former 2ppd x 30years) Smokeless Tobacco Status: No Alcohol use: rarely Drug use: none - Family History Father Living Status: Hx Family Cardiac Disorders: Yes ([place]) Medications and Allergies Amiodarone HCl [Pacerone] 200 mg PO DAILY 02/04/16 [History] Atorvastatin Calcium 40 mg PO DAILY 02/04/16 [History] Exenatide [Byetta] 1.2 mcg SQ DAILY 02/04/16 [History] Levothyroxine [Synthroid] 50 mcg PO DAILY 02/04/16 [History] Sertraline [Zoloft] 50 mg PO DAILY 02/04/16 [History] Warfarin [Coumadin] 2.5 mg PO DAILY 02/04/16 [History] Warfarin [Coumadin] 5 mg PO DAILY 02/04/16 [History] Albuterol Neb [Proventil Neb] 2.5 mg IH Q2H PRN #0 inhsol 02/09/16 [Rx] Glimepiride [Amaryl] 2 mg PO 0730 tablet 02/09/16 [Rx] Insulin LISPRO [HumaLOG] 0 units SQ HS vial 02/09/16 [Rx] Insulin LISPRO [HumaLOG] 0 units SQ TIDAC vial 02/09/16 [Rx] Ipratropium/Albuterol Neb [Duoneb] 3 ml IH [id number] PRN #0 inhsol 02/09/16 [Rx] Patient Taking Own Medication 5 each SQ DAILY each 02/09/16 [Rx] Allopurinol [Zyloprim] 200 mg PO DAILY #60 tablet 02/19/16 [Rx] Ascorbic Acid [Vitamin C] 500 mg PO 0630 #30 tablet 02/19/16 [Rx] Ascorbic Acid [Vitamin C] 500 mg PO DAILY@0630 #30 tablet 02/19/16 [Rx] Bumetanide [Bumex] 1.5 mg PO DAILY #45 tablet 02/19/16 [Rx] Carvedilol [Coreg] 6.25 mg PO BIDWM #60 tablet 02/19/16 [Rx] Cholecalciferol (D-3) [Vitamin D] 2,000 unit PO DAILY #60 tablet 02/19/16 [Rx] Ferrous Sulfate 325 mg PO 0630 #30 tablet 02/19/16 [Rx] Isosorbide MONOnitrate (24 HR) [Imdur] 30 mg PO DAILY #30 tab.er.24h 02/19/16 [ Rx] 3 Allergy/AdvReac Type Severity Reaction Status Date / Time No Known Allergies Allergy Unverified 11/12/15 07:44 ROS unobtainable: due to endotracheal tube All Systems Review: A 10-system review of systems was performed and is negative for pertinent findings except as documented above in the HPI. Physical Examination Vital Signs, Last 4 Hours Temp Pulse Resp BP Pulse Ox 04/16/17 15:53 98.4 F 04/16/17 15:02 22 120/42 95 04/16/17 15:00 63 22 120/42 96 04/16/17 14:00 68 22 125/38 95 04/16/17 13:30 22 149/43 96 04/16/17 13:00 60 23 149/43 97 04/16/17 12:18 99.1 F General: Other (intubated, sedated on mechanical ventilation) HEENT: Atraumatic, Normocephaly, Mucus Membranes Moist Neck: No JVD, Normal carotid pulses Cardiac: Reg Rate and Rhythm, Normal S1 and S2, No Murmur Lungs: Other (decreased breath sounds b/l) Neuro: Other (intubated, sedated, opens eyes spontaneously) Abdomen: Soft, Non-Tender Skin: No rashes noted on visualized skin Musculoskeletal: No Chest Wall Tenderness Extremities: No Clubbing, No Cyanosis, No Edema, Other (unable to palpate LE pulses; has doppler PT pulses b/l; 1+ radial pulse on R, unable to palpate L radial pulse) Results 04/16/17 14:50 04/16/17 13:25 Lab Results 04/16/17 04/16/17 04/16/17 01:32 01:32 01:32 WBC 12.2 H Hgb 8.9 L Hct 30.5 L Plt Count 236 INR 1.6 APTT 58.2 H D Sodium Potassium Chloride Carbon Dioxide BUN Creatinine Glucose Calcium Magnesium Total Bilirubin AST ALT Alkaline Phosphatase Troponin I 1.84 H* B-Natriuretic Peptide 04/16/17 04/16/17 04/16/17 01:32 07:55 07:55 WBC 9.6 Hgb 7.9 L Hct 26.7 L Plt Count 204 INR APTT Sodium 140 145 Potassium 6.7 H* 5.6 H D Chloride 113 H 114 H Carbon Dioxide 19 24 BUN 47 H 54 H Creatinine 2.45 H 2.98 H Glucose 208 H 187 H Calcium 8.8 9.6 Magnesium 2.0 Total Bilirubin 0.7 0.9 AST 113 H 125 H ALT 91 H 84 H Alkaline Phosphatase 102 91 Troponin I B-Natriuretic Peptide 04/16/17 04/16/17 04/16/17 07:55 07:55 13:25 WBC Hgb Hct Plt Count INR 1.6 APTT 30.9 Sodium Potassium Chloride Carbon Dioxide BUN Creatinine Glucose Calcium Magnesium Total Bilirubin AST ALT Alkaline Phosphatase Troponin I 24.70 H* 44.71 H* B-Natriuretic Peptide 04/16/17 04/16/17 04/16/17 13:25 13:25 14:50 WBC 8.5 Hgb 7.2 L Hct 24.0 L Plt Count 189 INR APTT Sodium Potassium 4.9 H Chloride Carbon Dioxide BUN Creatinine Glucose Calcium Magnesium Total Bilirubin AST ALT Alkaline Phosphatase Troponin I B-Natriuretic Peptide 1199 H 04/16/17 14:50 WBC Hgb Hct Plt Count INR 1.8 APTT 63.7 H D Sodium Potassium Chloride Carbon Dioxide BUN Creatinine Glucose Calcium Magnesium Total Bilirubin AST ALT Alkaline Phosphatase Troponin I B-Natriuretic Peptide Consult Discharge Plan - Plan Referrals: Priyank Guajardo MD [Primary Care Provider] -
[2017-04-16] MEDS: MetroNIDAZOLE 500 MG/100 ML 500 MG/100 ML BAG IVPB SCH (16:47)
[2017-04-16 16:54] LABS: Potassium 4.7 mEq/L (3.5-4.5)
[2017-04-16 17:53] LABS: Thyroid Stimulating Hormone 3.015 mcIU/mL (0.350-4.840)
[2017-04-16] MEDS ORDERED: Furosemide 20 MG/2 ML VIAL IVP ONE (18:19)
[2017-04-16 19:15] LABS: Potassium 4.1 mEq/L (3.5-4.5)
[2017-04-16 21:03] LABS: ABG Base Excess 1 mEq/L (-2 to 3); ABG HCO3 26 mEq/L (21-27); ABG Oxygen Saturation 92 % (95-98); ABG PCO2 44 mmHg (35-45); ABG PH 7.39 pH Units (7.32-7.45); ABG PO2 66 mmHg (85-104); ABG TCO2 28 mEq/L (20-26); Blood Gas Modality PRVC; Blood Gas PEEP 12 cm H2O; Blood Gas Respiration Rate 22; Blood Gas VT 600 cc
[2017-04-17] MEDS: MethylPREDNISolone 40 MG/ML VIAL IVP SCH ×4 (00:10→17:48)
[2017-04-17] MEDS: MetroNIDAZOLE 500 MG/100 ML 500 MG/100 ML BAG IVPB SCH ×3 (00:10→17:47)
[2017-04-17] MEDS: Lacri-Lube 3.5 GM TUBE BOTH EYES SCH ×7 (00:11→23:55)
[2017-04-17] MEDS: Insulin LISPRO 300 UNITS/3 ML VIAL SQ SCH ×7 (00:11→23:55)
[2017-04-17] MEDS: FentaNYL (PF) 1,000 MCG in 0.9 % Sodium Chloride 80 ML IVC SCH ×3 (01:21→22:20)
[2017-04-17] MEDS: Cefepime HCl 2,000 MG in Water for inj. (sterile) 20 ML IVP SCH (02:48)
[2017-04-17 03:16] LABS: Basophils % 0.1 %; Hematocrit 22.6 % (37.5-50.1); Immature Granulocytes % 0.4 % (0-4); Lymphocytes # 0.7 K/mcL (0.6-4.6); Mean Corpuscular Hemoglobin 24.6 pg (28.0-33.3); Mean Corpuscular Volume 79.6 fL (83.0-100.0); Mean Platelet Volume 10.7 fL (9.4-12.4); Monocytes # 0.5 K/mcL (0.0-1.3); Neutrophils # 8.9 K/mcL (1.6-8.9); Platelet Count 193 K/mcL (140-400); Red Blood Count 2.84 M/mcL (4.19-5.50); Red Cell Distribution Width 17.2 % (11.5-14.5); Segmented Neutrophils % 87.5 %
[2017-04-17 03:18] LABS: Prothrombin Time 22.3 Seconds (9.4-12.1)
[2017-04-17 03:20] LABS: Activated Partial Thrombo Time 70.8 Seconds (26.0-36.0)
[2017-04-17] MEDS: Ipratropium/Albuterol Neb 3 ML IH SCH ×6 (03:23→23:46)
[2017-04-17 03:30] LABS: Albumin 2.1 g/dL (3.5-5.0); Albumin/Globulin Ratio 0.6 (1.1-2.2); Bilirubin,Direct 0.3 mg/dL (0.0-0.5); Bilirubin,Indirect 0.3 mg/dL (0.0-1.2); Bilirubin,Total 0.6 mg/dL (0.2-1.2); Calcium 8.5 mg/dL (8.6-10.8); Globulin 3.7 g/dL (2.4-3.5); Magnesium 1.8 mg/dL (1.6-2.6); Phosphorous 2.5 mg/dL (2.3-4.7); Total Protein 5.8 g/dL (6.0-8.3)
[2017-04-17] MEDS: 0.9 % Sodium Chloride 1,000 ML IVC SCH ×3 (03:38→22:23)
[2017-04-17 04:58] LABS: ABG Base Excess 0 mEq/L (-2 to 3); ABG HCO3 25 mEq/L (21-27); ABG Oxygen Saturation 92 % (95-98); ABG PCO2 39 mmHg (35-45); ABG PH 7.41 pH Units (7.32-7.45); ABG PO2 64 mmHg (85-104); ABG TCO2 26 mEq/L (20-26); Blood Gas Modality PRVC; Blood Gas PEEP 12 cm H2O; Blood Gas Respiration Rate 22; Blood Gas VT 600 cc
[2017-04-17] MEDS ORDERED: Famotidine 20 MG/2 ML VIAL IVP SCH (06:00)
[2017-04-17 06:50] LABS: Bilirubin,Urine Small (Negative); Blood,Urine Large (Negative); Clarity,Urine Turbid (Clear); Color,Urine Yellow (Yellow); Glucose,Urine (UA) 100 mg/dL (Normal); Ketones,Urine Trace mg/dL (Negative); Leukocyte Esterase,Urine Small (Negative); Nitrite,Urine Negative (Negative); PH,Urine 5.5 pH Units (5.0-8.0); Protein,Urine 100 mg/dL (Neg-Trace); Specific Gravity,Urine 1.026 (1.010-1.025); Urobilinogen,Urine Normal (Normal)
[2017-04-17] MEDS ORDERED: Vancomycin 1 EACH in EMPTY BAG 1 EACH IVPB SCH (09:00)
--- NOTE | 2017-04-17 09:16 | Pulmonology Progress Note ---
<Marvin Noonan W - Last Filed: 04/17/17 13:33> Date of Encounter: 04/17/17 Objective PUL Vital signs: Last Vital Signs Temp 97.7 F 04/17/17 07:28 Pulse 61 04/17/17 09:06 Resp 22 04/17/17 09:24 BP 107/85 04/17/17 09:24 Pulse Ox 98 04/17/17 09:24 Ventilator Settings Ventilator Settings: Ventilator Settings, Last 8 Hours Ventilator Mode VC+ Ventilator Mode VC+ Ventilator Mode VC+ Ventilator Mode VC+ Ventilator Mode VC+ Ventilator Mode VC+ Ventilator Mode VC+ Ventilator Mode VC+ Ventilator Mode VC+ Ventilator Mode VC+ Ventilator Mode VC+ Ventilator Mode VC+ Ventilator Mode VC+ Ventilator Tidal Volume 600 Setting Ventilator Tidal Volume 600 Setting Ventilator Tidal Volume 600 Setting Ventilator Tidal Volume 600 Setting Ventilator Tidal Volume 600 Setting Ventilator Tidal Volume 600 Setting Ventilator Tidal Volume 600 Setting Ventilator Tidal Volume 600 Setting Ventilator Tidal Volume 600 Setting Ventilator Tidal Volume 600 Setting Ventilator Tidal Volume 600 Setting Ventilator Tidal Volume 600 Setting Ventilator Tidal Volume 600 Setting Ventilator Respiratory Rate 22 Setting Ventilator Respiratory Rate 22 Setting Ventilator Respiratory Rate 22 Setting Ventilator Respiratory Rate 22 Setting Ventilator Respiratory Rate 22 Setting Ventilator Respiratory Rate 22 Setting Ventilator Respiratory Rate 22 Setting Ventilator Respiratory Rate 22 Setting Ventilator Respiratory Rate 22 Setting Ventilator Respiratory Rate 22 Setting Ventilator Respiratory Rate 22 Setting Ventilator Respiratory Rate 22 Setting Ventilator Respiratory Rate 22 Setting Actual Respiratory Rate 22 Actual Respiratory Rate 22 Actual Respiratory Rate 22 Actual Respiratory Rate 22 Actual Respiratory Rate 22 Actual Respiratory Rate 22 Actual Respiratory Rate 22 Actual Respiratory Rate 22 Actual Respiratory Rate 22 Actual Respiratory Rate 22 Actual Respiratory Rate 22 Actual Respiratory Rate 22 Positive End Expiratory 12 Pressure Positive End Expiratory 12 Pressure Positive End Expiratory 12 Pressure Positive End Expiratory 12 Pressure Positive End Expiratory 12 Pressure Positive End Expiratory 12 Pressure Positive End Expiratory 12 Pressure Positive End Expiratory 12 Pressure Positive End Expiratory 12 Pressure Positive End Expiratory 12 Pressure Positive End Expiratory 12 Pressure Positive End Expiratory 12 Pressure Positive End Expiratory 12 Pressure Peak Inspiratory Airway 33 Pressure Peak Inspiratory Airway 33 Pressure Peak Inspiratory Airway 33 Pressure Peak Inspiratory Airway 32 Pressure Peak Inspiratory Airway 32 Pressure Peak Inspiratory Airway 32 Pressure Peak Inspiratory Airway 32 Pressure Peak Inspiratory Airway 32 Pressure Peak Inspiratory Airway 32 Pressure Peak Inspiratory Airway 31 Pressure Peak Inspiratory Airway 31 Pressure Peak Inspiratory Airway 31 Pressure Results - Laboratory Findings CBC and BMP: 04/17/17 03:02 04/17/17 03:02 ABG ABG pH 7.41 pH Units (7.32-7.45) 04/17/17 04:54 ABG pCO2 39 mmHg (35-45) 04/17/17 04:54 ABG pO2 64 mmHg (85-104) L 04/17/17 04:54 ABG O2 Saturation 92 % (95-98) L 04/17/17 04:54 PT/INR, D-dimer PT 22.3 Seconds (9.4-12.1) H 04/17/17 03:02 Abnormal lab findings: Abnormal lab results RBC 2.84 M/mcL (4.19-5.50) L 04/17/17 03:02 Hgb 7.0 g/dL (12.9-16.9) L 04/17/17 03:02 Hct 22.6 % (37.5-50.1) L 04/17/17 03:02 MCV 79.6 fL (83.0-100.0) L 04/17/17 03:02 MCH 24.6 pg (28.0-33.3) L 04/17/17 03:02 MCHC 31.0 g/dL (31.6-35.5) L 04/17/17 03:02 RDW 17.2 % (11.5-14.5) H 04/17/17 03:02 Nucleated RBCs/100 WBC 0.2 /100 WBC (0) H 04/16/17 07:55 PT 22.3 Seconds (9.4-12.1) H 04/17/17 03:02 APTT 94.9 Seconds (26.0-36.0) H 04/17/17 09:06 ABG pO2 64 mmHg (85-104) L 04/17/17 04:54 ABG O2 Saturation 92 % (95-98) L 04/17/17 04:54 BUN 65 mg/dL (8-26) H 04/17/17 03:02 Creatinine 4.51 mg/dL (0.72-1.25) H 04/17/17 03:02 Est GFR ( Amer) 15 (> 60) L 04/17/17 03:02 Est GFR (Non-Af Amer) 13 (> 60) L 04/17/17 03:02 Glucose 142 mg/dL (70-99) H 04/17/17 03:02 POC Glucose 191 (58-89) H 04/17/17 06:57 Calculated Osmolality 317 (280-300) H 04/17/17 03:02 Lactic Acid 3.0 mmol/L (0.5-2.2) H 04/17/17 03:02 Uric Acid 10.0 mg/dL (3.5-7.2) H 04/16/17 13:25 Calcium 8.5 mg/dL (8.6-10.8) L 04/17/17 03:02 AST 69 Units/L (5-34) H 04/17/17 03:02 ALT 59 Units/L (0-55) H 04/17/17 03:02 Creatine Kinase 453 Units/L (30-200) H 04/17/17 00:30 Troponin I 44.71 ng/mL (0-0.03) H* 04/16/17 13:25 B-Natriuretic Peptide 1199 pg/mL (0-100) H 04/16/17 13:25 Serum Total Protein 5.8 g/dL (6.0-8.3) L 04/17/17 03:02 Albumin 2.1 g/dL (3.5-5.0) L 04/17/17 03:02 Globulin 3.7 g/dL (2.4-3.5) H 04/17/17 03:02 Albumin/Globulin Ratio 0.6 (1.1-2.2) L 04/17/17 03:02 Urine Clarity Turbid (Clear) A 04/17/17 06:37 Ur Specific [place] 1.026 (1.010-1.025) H 04/17/17 06:37 Urine Protein 100 mg/dL (Neg-Trace) H 04/17/17 06:37 Urine Glucose (UA) 100 mg/dL (Normal) H 04/17/17 06:37 Urine Ketones Trace mg/dL (Negative) H 04/17/17 06:37 Urine Blood Large (Negative) H 04/17/17 06:37 Urine Bilirubin Small (Negative) H 04/17/17 06:37 Ur Leukocyte Esterase Small (Negative) H 04/17/17 06:37 - Clinical Findings Intake & Output: Intake & Output 04/16/17 04/17/17 04/17/17 23:59 07:59 15:59 Intake Total 1592.7 / 1592.7 360 / 360 120 / 120 Output Total 300 / 300 90 / 90 Balance 1292.7 / 1292.7 270 / 270 120 / 120 Weight 112.9 kg Consult Discharge Plan - Plan Referrals: Priyank Guajardo MD [Primary Care Provider] - - Attending Attestation I examined this patient and my medical decision-making was reviewed with the Resident Physician. I agree with the documented findings, disposition and treatment plan as described except to the extent set forth below. We independently had [id number] contact with the patient I spent 30min of Critical Care time with this patient. It involved decision making of high complexity to assess, manipulate, and support vital organ system failure and/or to prevent further life threatening deterioration of the patient' s condition. The time involved in the performance of separately reportable procedures was not counted toward critical care time. Patient seen and examined at bedside Labs, radiology, chart personally reviewed. Management was reviewed during multidisciplinary critical care rounds. 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 Mild agitation while on vent for which he is getting sedation for goal Star =2-3. Pulm: Hypoxic Hypercarbic Respiratory failure intubated on vent. ?AECOPD and likely Cardiogenic Pulmonary Edema. Adjusted vent for relative alkalosis to be closer TV of 6cc/kg. Decrease PEEP because of cardiac insult. Repeat ABG pending cont BDs and steroids for COPD. Cards: s/p PEA Cardiac Arrest possibly s/t NSTEMI with MOSF. Cardiology following. ECHO shows preserved EF. Lactate elevated ?Cardiac source.. We will trend Beta madeleine and statin given. FEN-GI: Start Enteral Nutrition Cont PPI prophylaxis Renal: VAHID on CKD oliguric Renal following plan to start HD today. cont to check and replace electrolytes per protocol ID: Possible Sepsis covering with ABx with plan to deescalate. Heme/Onc: Chronic ANemia transfuse for possible ACS with goal hgb around 9. Remains on anticoagulation (heparin) for ACS protocol Endo: Glucose Monitored Integ/MSK: Skin Care per routine ICU Nursing Protocol to prevent ulcers. Lines: All lines examined without evidence of infection : Dispo: [facility]ian in ICU for Critical illness. CODE: DNAR I had a conversation with the healthcare proxies of Mr. Cárdenas which are his 2 adult children. They were certain that father would want aggressive care but does not want to be currently dependent on for a vent order want tracheostomy and is goals were to return home and did not want to live in a penitentiary. Family was in agreement with my assessment that additional rounds of CPR if necessary would inconsistent with those goals and so CODE STATUS was changed to reflect this.The patient is unable to participate in giving a history and/or making treatment decisions. The discussion was necessary for determining treatment decision. This discussion took place in the [ICU waiting room]. The total meeting time was [15 minutes] <Daysi Palafox - Last Filed: 04/17/17 15:20> Date of Encounter: 04/17/17 Time of Encounter: 08:45 Assessment and Plan (1) Acute and chronic respiratory failure with hypercapnia Current Visit: Yes Status: Acute Cardiac arrest just prior to arrival likely secondary to COPD flare in the setting of medical comorbidities. -Patient's GCS 9, therefore no cooling per protocol. -Cardiology at [facility] prior to arrival recommending conservative management, felt EKG changes were secondary to respiratory/pulmonary process. -Possible acute exacerbation of COPD and likely cardiogenic pulmonary edema. Vent adjusted for alkalosis by Dr. Browne. -Patient currently intubated. -Dual nebs, IV steroids, IV cefepime and IV Flagyl started on April 16. (DC'd vanc 04/17 after 1 dose) -Follow-up ABGs closely. -Continue to trend lactic acid q6 hours ( 2.6on admission , 1.4, 3.0 this morning). After discussion with family including son and daughter, they were adamant that their father would not want to be resuscitated again if he were to become pulseless again. They were clear that they would like to change his code status to DNR-CCA. They were both clear on his wishes. They also wished to reiterate that should his condition intimate that he would be penitentiary bound permanently, that he would not wish to live that way either, should that affect our clinical decision making process. (2) Wwzbu-nr-[id number] kidney injury Current Visit: Yes Status: Acute Patient oliguric with increasing serum creatinine. Likely ATN secondary to hypotension during cardiac arrest. -Hemodialysis today as initiated by Dr. Reynolds. -Appreciate nephrology recommendations. Qualifiers: Acute renal failure type: unspecified Chronic kidney disease stage: unspecified stage Qualified Code(s): N17.9 - Acute kidney failure, unspecified ; N18.9 - Chronic kidney disease, unspecified; N18.9 - Chronic kidney disease, unspecified (3) Elevated troponin Current Visit: No Status: Inactive Patient status post cardiac arrest thought to be a PDA as did not receive any shocks. This appears to be due to an NSTEMI as troponins are 44. -Cardiology following. -Echocardiogram on April 16 shows preserved ejection fraction of 55-60%. -Patient's blood pressure have been stable, no evidence of cardiogenic shock. -Continue beta madeleine, statin. -Heparin drip discontinued on 04/17 as patient developed bleeding from his OG tube. -Patient for left heart catheterization once able. (4) Coffee ground emesis Current Visit: Yes Status: Acute Patient developed red bloody appearing fluid output from his OG tube this afternoon. -GI consulted. -PPI drip started -INR 2- on warfarin at home. -2 units of fresh frozen plasma ordered. (5) Anemia Current Visit: No Status: Chronic Patient's hemoglobin 7.2 on admission and 7.0 this morning. Likely chronic. Will transfuse for possible ACS with goal hemoglobin around 9. -Type and screen. -Transfused 2 units packed red blood cells. Qualifiers: Anemia type: iron deficiency Iron deficiency anemia type: unspecified iron deficiency Qualified Code(s): D50.9 - Iron deficiency anemia, unspecified (6) COPD (chronic obstructive pulmonary disease) Current Visit: Yes Status: Inactive Continue duonebs and steroids. Qualifiers: COPD type: unspecified COPD Qualified Code(s): J44.9 - Chronic obstructive pulmonary disease, unspecified (7) Pneumonia Current Visit: No Status: Resolved CXR with improving pulmonary edema. Also, suspected right pleural effusion with increasing right basilar atelectasis or pneumonia.Patient with elevated lactic acid likely from ischemia. Less likely sepsis as patient without tachycardia, tachypnea, leukocytosis or bandemia. -providing antibiotic coverage for PNA. - Qualifiers: Pneumonia type: due to unspecified organism Laterality: bilateral Lung location: unspecified part of lung Qualified Code(s): J18.9 - Pneumonia, unspecified organism (8) CHF (congestive heart failure) Current Visit: Yes Status: Acute CXR with improving pulmonary edema. Also, suspected right pleural effusion with increasing right basilar atelectasis or pneumonia. - Echo on 04/16 LVEF 55-60%. -suspect diastolic dysfunction or new onset systolic dysfunction. -Await cardiology recommendations. -Low-dose heparin drip discontinued secondary to coffee-ground emesis per OG tube. -Asprin 325 through OG tube. Qualifiers: Congestive heart failure type: diastolic Congestive heart failure chronicity: unspecified congestive heart failure chronicity Qualified Code(s) : I50.30 - Unspecified diastolic (congestive) heart failure (9) Pulmonary edema Current Visit: Yes Status: Acute CXR 04/16- suspected right PE with increasing right basilar atelectasis or PNA. Improving pulmonary edema -Superimposed PNA- continue broad spectrum Abx coverage with cefepime, and flagyl day 2 as above. -Discontinue vancomycin to decrease renal insult. Qualifiers: Chronicity: acute Qualified Code(s): J81.0 - Acute pulmonary edema (10) Cardiac arrest Current Visit: Yes Status: Acute Patient s/p cardiac arrest en route to [place] [facility] x2 receiving two rounds of CPR, epinepherine, and 2 amps of sodium bicarbonate. -Patient still acidotic when arrived on ICU. -1 L of bicarbonate infused over the last 24 hours. (11) History of CVA (cerebrovascular accident) without residual deficits Current Visit: Yes Status: Acute Per review of medical record, patient does have past medical history of CVA, however, it is unclear at what point in time. Per family, patient has no residual deficits from his CVA. (12) Coronary artery disease Current Visit: Yes Status: Chronic Patient with a history of CABG [place] [address] Chu. -Continue medical. Qualifiers: Coronary Disease-Associated Artery/Lesion type: [place] artery [place] vs. transplanted heart: [place] heart Associated angina: angina presence unspecified Qualified Code(s): I25.10 - Atherosclerotic heart disease of [place] coronary artery without angina pectoris (13) DVT prophylaxis Current Visit: Yes Status: Acute No medical anticoagulation as patient has coffee-ground emesis. -EPCDs -PPI drip secondary to GI bleed. Subjective Principal diagnosis: Multi- Organ System Failure Interval history: 81-year-old male with coronary artery disease status post CABG, CVA, PVD, diabetes mellitus type 2, hypertension, COPD on 3 liters nasal cannula at home, bilateral lower extremity weakness, and CHF presented to [facility] on 04-17-2017 s/p cardiac arrest and renal failure. Mr. Cárdenas started on Versed overnight for agitation. He received 1 L of bicarbonate. He has only had 90 mils of urinary output. His BUN and serum creatinine are trending upwards as well as his lactic acid. His blood pressure has been stable. This afternoon, patient was noted to have pamella blood coming out of his OG tube. Objective PUL Vital signs: Last Vital Signs Temp 97.7 F 04/17/17 07:28 Pulse 63 04/17/17 07:45 Resp 22 04/17/17 07:53 BP 126/50 04/17/17 07:53 Pulse Ox 97 04/17/17 07:53 General appearance: comatose (Sedated and intubated) Eyes: nonicteric ENT: oropharynx dry Effort: other (Mechanical ventilation) Auscultation: left: clear, right: diminished breath sounds Cardiovascular: regular rate and rhythm Gastrointestinal: normoactive bowel sounds, soft, non-distended Integumentary: normal Extremities: no cyanosis, edema (mild 1+ bilaterally), other (Pulses difficult to palpate. Dorsalis pedis pulses heard via bedside Doppler.) unable to assess due to mental status Ventilator Settings Ventilator Settings: Ventilator Settings, Last 8 Hours Ventilator Mode VC+ Ventilator Mode VC+ Ventilator Mode VC+ Ventilator Mode VC+ Ventilator Mode VC+ Ventilator Mode VC+ Ventilator Mode VC+ Ventilator Mode VC+ Ventilator Mode VC+ Ventilator Mode VC+ Ventilator Mode VC+ Ventilator Mode VC+ Ventilator Tidal Volume 600 Setting Ventilator Tidal Volume 600 Setting Ventilator Tidal Volume 600 Setting Ventilator Tidal Volume 600 Setting Ventilator Tidal Volume 600 Setting Ventilator Tidal Volume 600 Setting Ventilator Tidal Volume 600 Setting Ventilator Tidal Volume 600 Setting Ventilator Tidal Volume 600 Setting Ventilator Tidal Volume 600 Setting Ventilator Tidal Volume 600 Setting Ventilator Tidal Volume 600 Setting Ventilator Respiratory Rate 22 Setting Ventilator Respiratory Rate 22 Setting Ventilator Respiratory Rate 22 Setting Ventilator Respiratory Rate 22 Setting Ventilator Respiratory Rate 22 Setting Ventilator Respiratory Rate 22 Setting Ventilator Respiratory Rate 22 Setting Ventilator Respiratory Rate 22 Setting Ventilator Respiratory Rate 22 Setting Ventilator Respiratory Rate 22 Setting Ventilator Respiratory Rate 22 Setting Ventilator Respiratory Rate 22 Setting Actual Respiratory Rate 22 Actual Respiratory Rate 22 Actual Respiratory Rate 22 Actual Respiratory Rate 22 Actual Respiratory Rate 22 Actual Respiratory Rate 22 Actual Respiratory Rate 22 Actual Respiratory Rate 22 Actual Respiratory Rate 22 Actual Respiratory Rate 22 Actual Respiratory Rate 22 Positive End Expiratory 12 Pressure Positive End Expiratory 12 Pressure Positive End Expiratory 12 Pressure Positive End Expiratory 12 Pressure Positive End Expiratory 12 Pressure Positive End Expiratory 12 Pressure Positive End Expiratory 12 Pressure Positive End Expiratory 12 Pressure Positive End Expiratory 12 Pressure Positive End Expiratory 12 Pressure Positive End Expiratory 12 Pressure Positive End Expiratory 12 Pressure Peak Inspiratory Airway 32 Pressure Peak Inspiratory Airway 32 Pressure Peak Inspiratory Airway 32 Pressure Peak Inspiratory Airway 32 Pressure Peak Inspiratory Airway 32 Pressure Peak Inspiratory Airway 32 Pressure Peak Inspiratory Airway 31 Pressure Peak Inspiratory Airway 31 Pressure Peak Inspiratory Airway 31 Pressure Peak Inspiratory Airway 37 Pressure Results - Laboratory Findings CBC and BMP: 04/17/17 03:02 04/17/17 03:02 ABG ABG pH 7.41 pH Units (7.32-7.45) 04/17/17 04:54 ABG pCO2 39 mmHg (35-45) 04/17/17 04:54 ABG pO2 64 mmHg (85-104) L 04/17/17 04:54 ABG O2 Saturation 92 % (95-98) L 04/17/17 04:54 PT/INR, D-dimer PT 22.3 Seconds (9.4-12.1) H 04/17/17 03:02 Abnormal lab findings: Abnormal lab results RBC 2.84 M/mcL (4.19-5.50) L 04/17/17 03:02 Hgb 7.0 g/dL (12.9-16.9) L 04/17/17 03:02 Hct 22.6 % (37.5-50.1) L 04/17/17 03:02 MCV 79.6 fL (83.0-100.0) L 04/17/17 03:02 MCH 24.6 pg (28.0-33.3) L 04/17/17 03:02 MCHC 31.0 g/dL (31.6-35.5) L 04/17/17 03:02 RDW 17.2 % (11.5-14.5) H 04/17/17 03:02 Nucleated RBCs/100 WBC 0.2 /100 WBC (0) H 04/16/17 07:55 PT 22.3 Seconds (9.4-12.1) H 04/17/17 03:02 APTT 70.8 Seconds (26.0-36.0) H 04/17/17 03:02 ABG pO2 64 mmHg (85-104) L 04/17/17 04:54 ABG O2 Saturation 92 % (95-98) L 04/17/17 04:54 BUN 65 mg/dL (8-26) H 04/17/17 03:02 Creatinine 4.51 mg/dL (0.72-1.25) H 04/17/17 03:02 Est GFR ( Amer) 15 (> 60) L 04/17/17 03:02 Est GFR (Non-Af Amer) 13 (> 60) L 04/17/17 03:02 Glucose 142 mg/dL (70-99) H 04/17/17 03:02 POC Glucose 191 (58-89) H 04/17/17 06:57 Calculated Osmolality 317 (280-300) H 04/17/17 03:02 Lactic Acid 3.0 mmol/L (0.5-2.2) H 04/17/17 03:02 Uric Acid 10.0 mg/dL (3.5-7.2) H 04/16/17 13:25 Calcium 8.5 mg/dL (8.6-10.8) L 04/17/17 03:02 AST 69 Units/L (5-34) H 04/17/17 03:02 ALT 59 Units/L (0-55) H 04/17/17 03:02 Creatine Kinase 453 Units/L (30-200) H 04/17/17 00:30 Troponin I 44.71 ng/mL (0-0.03) H* 04/16/17 13:25 B-Natriuretic Peptide 1199 pg/mL (0-100) H 04/16/17 13:25 Serum Total Protein 5.8 g/dL (6.0-8.3) L 04/17/17 03:02 Albumin 2.1 g/dL (3.5-5.0) L 04/17/17 03:02 Globulin 3.7 g/dL (2.4-3.5) H 04/17/17 03:02 Albumin/Globulin Ratio 0.6 (1.1-2.2) L 04/17/17 03:02 Urine Clarity Turbid (Clear) A 04/17/17 06:37 Ur Specific [place] 1.026 (1.010-1.025) H 04/17/17 06:37 Urine Protein 100 mg/dL (Neg-Trace) H 04/17/17 06:37 Urine Glucose (UA) 100 mg/dL (Normal) H 04/17/17 06:37 Urine Ketones Trace mg/dL (Negative) H 04/17/17 06:37 Urine Blood Large (Negative) H 04/17/17 06:37 Urine Bilirubin Small (Negative) H 04/17/17 06:37 Ur Leukocyte Esterase Small (Negative) H 04/17/17 06:37 - Clinical Findings Intake & Output: Intake & Output 04/16/17 04/17/17 04/17/17 23:59 07:59 15:59 Intake Total 1592.7 / 1592.7 360 / 360 Output Total 300 / 300 90 / 90 Balance 1292.7 / 1292.7 270 / 270 Weight 112.9 kg
[2017-04-17] MEDS: Heparin 25,000 UNIT/500 ML D5W 25,000 UNIT/500 ML BAG IVC SCH (09:26)
[2017-04-17] MEDS: Docusate Oral Soln 100 MG/10 ML UDC GTUBE SCH ×2 (09:26→20:15)
[2017-04-17] MEDS: Chlorhexidine Rinse 15 ML MOUTHWASH MM SCH ×2 (09:26→20:15)
[2017-04-17] MEDS: Aspirin 81 MG TAB.CHEW PO SCH (09:26)
[2017-04-17] MEDS ORDERED: 0.9 % Sodium Chloride 250 ML IVC PRN (09:43)
--- NOTE | 2017-04-17 09:43 | Nephrology Progress Note ---
Date of Encounter: 04/17/17 Time of Encounter: 09:41 - Assessment and Plan (1) VAHID (acute kidney injury) Current Visit: Yes Status: Acute The patient has acute kidney injury superimposed on stage III chronic kidney disease in the setting of respiratory failure and cardiac arrest. Patient remains oliguric. His azotemia is increasing on a daily basis. For these reasons we are going to initiate dialysis. We will consult interventional radiology for placement of temporary dialysis catheter. I did discuss this with the patient's family and they are in agreement. (2) Chronic kidney disease, stage III (moderate) Current Visit: Yes Status: Acute (3) Cardiac arrest Current Visit: Yes Status: Acute (4) Acute respiratory failure Current Visit: Yes Status: Acute Qualifiers: Respiratory failure complication: hypoxia and hypercapnia Qualified Code(s) : J96.01 - Acute respiratory failure with hypoxia; J96.02 - Acute respiratory failure with hypercapnia; J96.02 - Acute respiratory failure with hypercapnia; J96.02 - Acute respiratory failure with hypercapnia (5) Non-STEMI (non-ST elevated myocardial infarction) Current Visit: Yes Status: Acute Subjective Interval history: Patient remained sedated on the ventilator. Vital signs are stable. He remains oliguric. Objective - Vital Signs Vital signs: Vital Signs Temp Pulse Resp BP Pulse Ox 04/17/17 09:24 22 107/85 98 04/17/17 09:06 61 22 107/85 97 04/17/17 08:00 64 22 131/52 97 04/17/17 07:53 22 126/50 97 04/17/17 07:45 63 22 126/50 97 04/17/17 07:28 97.7 F 04/17/17 06:00 61 22 132/51 96 04/17/17 05:00 61 22 130/50 95 04/17/17 04:50 97.4 F L 04/17/17 04:00 63 22 120/51 95 04/17/17 03:23 22 127/50 96 04/17/17 03:00 63 22 127/50 95 04/17/17 02:00 65 22 124/50 96 04/17/17 01:25 22 120/50 93 04/17/17 01:00 59 22 120/50 98 04/17/17 00:34 97.7 F 04/17/17 00:00 61 22 117/47 98 04/16/17 23:26 22 103/42 93 04/16/17 23:00 64 22 103/42 96 04/16/17 22:00 89 27 138/58 96 04/16/17 21:40 22 133/55 97 04/16/17 21:00 62 22 129/57 97 04/16/17 20:32 99.1 F 04/16/17 20:00 63 22 128/44 94 04/16/17 19:36 22 134/41 94 04/16/17 19:30 70 22 134/41 90 04/16/17 19:00 65 04/16/17 18:00 66 22 107/39 90 04/16/17 17:25 102 32 137/47 96 04/16/17 17:00 23 137/47 94 04/16/17 16:00 99.2 F 57 22 129/45 94 04/16/17 15:53 98.4 F 04/16/17 15:02 22 120/42 95 04/16/17 15:00 63 22 120/42 96 04/16/17 14:00 68 22 125/38 95 04/16/17 13:30 22 149/43 96 04/16/17 13:00 60 23 149/43 97 04/16/17 12:18 99.1 F 04/16/17 11:11 58 22 122/37 96 04/16/17 11:06 22 122/37 96 04/16/17 10:23 60 22 131/39 96 Intake and Output 04/16/17 04/17/17 04/17/17 23:59 07:59 15:59 Intake Total 1592.7 / 1592.7 360 / 360 120 / 120 Output Total 300 / 300 90 / 90 Balance 1292.7 / 1292.7 270 / 270 120 / 120 Intake: IV Fluids 1592.7 / 1592.7 360 / 360 120 / 120 FentaNYL (PF) 1,000 MCG In 0.9 96.7 / 96.7 100 / 100 % Sodium Chloride 80 ML @ 50 MCG/HR 5 mls/hr IVC CONT [facility] Rx #:[id number] Heparin 25,000 UNIT/500 ML D5W 240 / 240 140 / 140 120 / 120 25,000 unit In 500 ml @ 20 mls/ hr IVC .Q24H RAD[facility] Rx#:[id number] Versed 50 MG In 0.9 % Sodium 6 / 6 Chloride 90 ML @ 2 MG/HR 4 mls/ hr IVC CONT RADHA Rx#:[id number] Sodium Bicarbonate 150 MEQ In 1150 / 1150 Dextrose 5% 1,000 ML @ 100 mls/ hr IVC .[id number] [facility] Rx#: [id number] Maxipime 2,000 MG In Water for 20 / 20 inj. (sterile) 20 ML @ 300 mls/ hr IVP Q12H [facility] Rx#:[id number] Flagyl Premix 500 MG/100 ML 500 100 / 100 100 / 100 mg In 100 ml @ 100 mls/hr IVPB Q8HR [facility] Rx#:[id number] Output: Catheter 50 / 50 40 / 40 Gastric Drainage 250 / 250 50 / 50 Other: Weight 112.9 kg Blood Glucose* 244 191 Patient Weight 04/17/17 23:59 Weight 112.9 kg - General Appearance Exam: Patient is sedated on the ventilator. He appears to be resting comfortably. Lungs coarse breath sounds. Heart regular rate and rhythm. Abdomen is somewhat distended. There is no guarding or rigidity. There is some mild lower extremity swelling. - Lab 04/17/17 03:02 04/17/17 03:02 Most recent lab results ABG pH 7.41 pH Units (7.32-7.45) 04/17/17 04:54 ABG pCO2 39 mmHg (35-45) 04/17/17 04:54 ABG pO2 64 mmHg (85-104) L 04/17/17 04:54 ABG HCO3 25 mEq/L (21-27) 04/17/17 04:54 ABG O2 Saturation 92 % (95-98) L 04/17/17 04:54 Calcium 8.5 mg/dL (8.6-10.8) L 04/17/17 03:02 Phosphorus 2.5 mg/dL (2.3-4.7) 04/17/17 03:02 Magnesium 1.8 mg/dL (1.6-2.6) 04/17/17 03:02 Consult Discharge Plan - Plan Referrals: Priyank Guajardo MD [Primary Care Provider] -
[2017-04-17 10:06] LABS: Blood Gas PEEP 8 cm H2O; Blood Gas Respiration Rate 18; Blood Gas VT 500 cc; VBG HCO3 27 mEq/L (21-27); VBG PCO2 62 mmHg (41-51); VBG PH 7.24 pH Units (7.32-7.42); VBG PO2 34 mmHg (25-50)
--- NOTE | 2017-04-17 10:53 | Cardiology Progress Note ---
Date of Encounter: 04/17/17 Time of Encounter: 09:00 Assessment and Plan (1) Cardiac arrest Current Visit: Yes Status: Acute Cardiopulmonary arrest likely multifactorial. EMS called due to respiratory distress per daughter. Pt with difficulty breathing for two days and refused to go to ER. SPO2 79% on EMS arrival. Once placed in squad patient developed cardiac arrest and received CPR in EMS and once he arrived to ED. Appeared to not have a shockable rhythm --no defibrillation used. No clear rhythm strips to review. SOB likely due to diastolic CHF and worsening renal function. Also had hyperkalemia. EKG does not demonstrate any evidence of STEMI. Cardiac enzymes markedly elevated in setting of cardiopulmonary arrest. At this time, pt not candidate for invasive evaluation due to worsening anemia, acute renal failure, unclear neurologic status. Remains sedated on ventilator. No evidence of cardiogenic shock, echocardiogram demonstrates normal LV function EF 55-60%. Wall motion abnormalities cannot be excluded due to technical limitations of study. Discussed with Dr. De La O, will repeat echo to check for wall motion abnormalities. Check CK. Will follow closely. Continue supportive care. Possible LHC once stable from renal and respiratory standpoint. (2) Non-STEMI (non-ST elevated myocardial infarction) Current Visit: Yes Status: Acute NSTEMI vs type II MD as described above.Troponin 44. Aggressive medical therapy. Possible LHC pending neurologic and renal status. Continue heparin gtt as tolerated. No signs of acute bleeding. Anemia appears to be chronic. Continue asa, statin, and bb. Not a candidate for cardiac rehab at this time. (3) Coronary artery disease Current Visit: Yes Status: Chronic H/[place] CAB[place] [address] Rafat DELEON to LAD, seq SVG to diag 2, OM1, SVG to R PDA. Continue medical management. Qualifiers: Coronary Disease-Associated Artery/Lesion type: [place] artery [place] vs. transplanted heart: [place] heart Associated angina: angina presence unspecified Qualified Code(s): I25.10 - Atherosclerotic heart disease of [place] coronary artery without angina pectoris (4) S/P CABG (coronary artery bypass graft) Current Visit: No Status: Chronic Discussion w patient/family: The assessment and plan as outlined above was discussed with the patient and/or family members who expressed understanding and agreement. All questions were answered. Thank you for involving us in the care of your patient. Please call with any questions. Subjective Principal diagnosis: Chest pain Interval history: Mr. Cárdenas remains intubated and sedated. Family at bedside. Set-up for dialysis catheter is being completed. Planning for temporary dialysis. Objective Vital Signs, Last 4 Hours Temp Pulse Resp BP Pulse Ox 04/17/17 09:24 22 107/85 98 04/17/17 09:06 61 22 107/85 97 04/17/17 08:00 64 22 131/52 97 04/17/17 07:53 22 126/50 97 04/17/17 07:45 63 22 126/50 97 04/17/17 07:28 97.7 F General: Other (Intubated and sedated) HEENT: Atraumatic, Normocephaly, Mucus Membranes Moist Neck: No JVD, Normal carotid pulses Cardiac: Reg Rate and Rhythm, Normal S1 and S2, No Murmur Lungs: Other (Lung sounds diminished) Neuro: Other (sedated, unable to follow commands) Abdomen: Soft, Non-Tender Skin: No rashes noted on visualized skin Musculoskeletal: No Chest Wall Tenderness Extremities: No Clubbing, No Cyanosis, Normal Pulses, Other (2+ BLE edema up to knees) Results 04/17/17 03:02 04/17/17 03:02 Lab Results 04/16/17 04/16/17 04/16/17 13:25 13:25 13:25 WBC Hgb Hct Plt Count INR APTT Sodium Potassium 4.9 H Chloride Carbon Dioxide BUN Creatinine Glucose Calcium Magnesium Total Bilirubin AST ALT Alkaline Phosphatase Troponin I 44.71 H* B-Natriuretic Peptide 1199 H TSH 04/16/17 04/16/17 04/16/17 14:50 14:50 16:31 WBC 8.5 Hgb 7.2 L Hct 24.0 L Plt Count 189 INR 1.8 APTT 63.7 H D Sodium Potassium 4.7 H Chloride Carbon Dioxide BUN Creatinine Glucose Calcium Magnesium Total Bilirubin AST ALT Alkaline Phosphatase Troponin I B-Natriuretic Peptide TSH 3.015 04/16/17 04/16/17 04/17/17 18:29 20:53 03:02 WBC 10.1 Hgb 7.0 L Hct 22.6 L Plt Count 193 INR APTT 55.0 H Sodium 143 Potassium 4.1 Chloride 110 H Carbon Dioxide 26 BUN 60 H Creatinine 3.63 H Glucose 248 H Calcium 8.0 L D Magnesium Total Bilirubin AST Echocardiogram 04/16/17 00:27 Impressions: Technically limited study due to poor sound wave transmission. Pt on mechanical ventilation. Overall LV function appears grossly normal. EF 55-60%. Cannot exclude subtle wall motion abnormalities due to technical limitations of study. No significant valvular dysfunction. Unable to assess RVSP due to inadequate TR jet. Findings: Study Quality * Technically sub-optimal due to poor echocardiographic windows. ECG Findings * Normal sinus rhythm. Left Ventricle * LVEF 55-60%. * Normal LV chamber size, wall thickness and function. * Unable to evaluate segmental wall motion due to technical quality. Right Ventricle * Normal right ventricular structure and function. Left Atrium * Normal left atrial size. Right Atrium * Normal right atrial size. Interatrial Septum * Interatrial septum not well evaluated. Aortic Valve * Aortic valve not well visualized. * No aortic regurgitation. * No aortic stenosis. Mitral Valve * No mitral regurgitation. * No mitral stenosis. * Normal mitral valve structure and function. Tricuspid Valve * Tricuspid valve not well visualized. * No tricuspid regurgitation. * Unable to estimate RVSP due to lack of TR jet. Pulmonic Valve * Pulmonic valve not well visualized. Aorta * Normally sized aortic root. Pericardium * The pericardium appears normal. IVC * Normal IVC dimensions and inspiratory collapse. Chest X-Ray 04/16/17 02:00 IMPRESSION: Improving pulmonary edema. Suspected right pleural effusion with increasing right basilar atelectasis or pneumonia. D/ / Dmitri Jeronimo MD / Dmitri Jeronimo MD Interpreting Provider: Dmitri Jeronimo MD X-Ray 04/16/17 08:06 IMPRESSION: Appropriate positioning of orogastric tube. D/ / Kenny Jacques MD / Kenny Jacques MD Interpreting Provider: Kenny Jacques MD Alkaline Phosphatase Troponin I B-Natriuretic Peptide TSH 04/17/17 04/17/17 04/17/17 03:02 03:02 09:06 WBC Hgb Hct Plt Count INR 2.0 APTT 70.8 H 94.9 H Sodium 143 Potassium 4.0 Chloride 108 Carbon Dioxide 28 BUN 65 H Creatinine 4.51 H Glucose 142 H Calcium 8.5 L Magnesium 1.8 Total Bilirubin 0.6 AST 69 H ALT 59 H Alkaline Phosphatase 71 Troponin I B-Natriuretic Peptide TSH - EKG Interpretation EKG results cardiology: personally reviewed Consult Discharge Plan - Plan Referrals: Priyank Guajardo MD [Primary Care Provider] -
[2017-04-17] MEDS ORDERED: *HR* Heparin 5,000 UNIT/ML VIAL ONE (11:19)
--- NOTE | 2017-04-17 11:30 | IR Procedure Note ---
Date of procedure: 04/17/17 Consent Obtained: Written consent Timeout: Correct patient and procedure verified, Correct site verified, Time out performed, Skin prep completed Local anesthetic: Lidocaine 1% Indications: Acute on chronic renal failure Procedure Performed: Temp dialysis catheter placement Results/Findings: RIJ 15.5 Fr 20 cm temp dialysis catheter placement Complications: None; Tolerated procedure well (Monitor on floor)
[2017-04-17 12:43] LABS: ABG Base Excess -2 mEq/L (-2 to 3); ABG HCO3 24 mEq/L (21-27); ABG Oxygen Saturation 93 % (95-98); ABG PCO2 44 mmHg (35-45); ABG PH 7.34 pH Units (7.32-7.45); ABG PO2 72 mmHg (85-104); ABG TCO2 25 mEq/L (20-26)
[2017-04-17] MEDS ORDERED: Pantoprazole 80 MG in 0.9 % Sodium Chloride 250 ML IVC SCH ×2 (13:00→14:15)
--- NOTE | 2017-04-17 15:07 | Gastroenterology Consult Note ---
<Enmanuel Rogers - Last Filed: 04/17/17 15:22> Date of Encounter: 04/17/17 Time of Encounter: 15:04 - Assessment and plan (1) Acute and chronic respiratory failure with hypercapnia Current Visit: Yes Status: Acute Assessment and plan: in setting of COPD exacerbation, and Cardiac arrest intubated/sedated plan as per primary on PPI drip (2) Cardiac arrest Current Visit: Yes Status: Acute Assessment and plan: patient had cardiac arrest x2 post rosc sedated intubated did not requrie cooling was on heparin gtt plan for LHC but has UGI bleed heparin d/c. patient on aspirin will plan for EGD once INR<2.0 (3) UGI bleed Current Visit: Yes Status: Acute Assessment and plan: Visible OG tube output of dark to bright red blood patient was on heparin gtt for ACS awaiting LHC which is d/c due to UGI bleed hgb 7.0: 2 PBRC transfusing INR 2.0: on warfarin due to hx of afib. 2 FFP given hemodynamically stable: not requiring vasopressors plan: plan for EGD after INR <1.5. NPO PPI drip (4) Acute renal failure (ARF) Current Visit: Yes Status: Acute Assessment and plan: 2nd to cardiac arrest starting intermittent dialysis Qualifiers: Acute renal failure type: with acute tubular necrosis Qualified Code(s): N17.0 - Acute kidney failure with tubular necrosis (5) Anemia Current Visit: Yes Status: Chronic Assessment and plan: hx of microcytic anemia on iron replacement therapy outpatient colonoscopy 2014 had findings of multiple polyps currently has UGI bleed plan for EGD once INR <1.5. Qualifiers: Anemia type: iron deficiency Iron deficiency anemia type: unspecified iron deficiency Qualified Code(s): D50.9 - Iron deficiency anemia, unspecified (6) DVT prophylaxis Current Visit: Yes Status: Acute Assessment and plan: EPCD - Time Spent With Patient Total time spent is greater than 50% in coordination of care (as documented) at patient's floor/unit and/or counseling patient: GI History of Present Illness - Data of Consult Patient: known to practice within the last 3 years Consult date: 04/17/17 Requesting Physician: Reinaldo Castillo MD - Consult Narrative Reason for consult: BRB per NG tube History of present illness: Mr. Cárdenas is a 81 year old male admitted after cardiopulmonary arrest,now intubated and sedated. This morning patient had dark to red blood output from OG tube. Patient was on heparin and plan was for LHC which is on hold due to UGI bleed. BP stable. Hgb 7, 2PBRC being transfused. Patient's repeat echocardiogram had normal LV function of 55-60%. Patient takes warfarin outpatient for atrial fibrillation and INR is 2.0, 2 units FFP being transfused. Patient has hx of microcytic anemia and had double endoscopy in 2015. Colonoscopy showed multiple polyps throughout colon with diverticulosis. EGD found multiple gastric polyps. Pathology was negative for dysplasia or cancer. Past Med Surg Social Fam HX - Past Medical History Medical history: COPD, coronary artery disease, CVA, diabetes, hyperlipidemia, hypertension, peripheral artery disease, renal disease Psychiatric history: anxiety, depression - Past Surgical History Surgical History: appendectomy, cholecystectomy, colectomy, coronary bypass ( CABG), LE Bypass, orthopedic, other, vascular surgery - Social History Smoking Status: Former smoker (former 2ppd x 30years) Smokeless Tobacco Status: No Alcohol use: rarely Drug use: none - Family History Father Living Status: Hx Family Cardiac Disorders: Yes (DE) ROS unobtainable: due to endotracheal tube - Constitutional Vitals: Temp Pulse Resp BP Pulse Ox 97.7 F 67 22 141/41 93 04/17/17 07:28 04/17/17 13:45 04/17/17 13:45 04/17/17 13:45 04/17/17 13:45 Exam: intuabated and sedated. - Head Head exam: Present: atraumatic, normocephalic - Eye Eye exam: Present: conjuntiva pink, sclera anicteric - ENT Additional comments: intubated. OG tube output BRB - Neck Neck exam general surgery: Absent: lymphadenopathy - Respiratory Respiratory exam: Present: rhonchi Additional comments: intubated. - Cardiovascular Cardiovascular exam: Present: RRR, +S1, +S2 - GI/Abdominal Additional comments: absent bowel sounds. nondistended, soft - Extremities Exam Extremities exam: Present: normal inspection, warm, radial pulses palpable and symmetrical. Absent: pedal edema - Neurological Exam Additional comments: sedated - Skin Skin exam: Present: dry, intact, normal color, warm Results - Labs CBC & Chem 7: 04/17/17 03:02 04/17/17 03:02 Labs: Last Result Calcium 8.5 mg/dL (8.6-10.8) L 04/17/17 03:02 Troponin I 44.71 ng/mL (0-0.03) H* 04/16/17 13:25 Entire Visit Hgb 7.0 g/dL (12.9-16.9) L 04/17/17 03:02 Hct 22.6 % (37.5-50.1) L 04/17/17 03:02 PT 22.3 Seconds (9.4-12.1) H 04/17/17 03:02 Total Bilirubin 0.6 mg/dL (0.2-1.2) 04/17/17 03:02 AST 69 Units/L (5-34) H 04/17/17 03:02 ALT 59 Units/L (0-55) H 04/17/17 03:02 - ABG ABG results: ABG ABG pH 7.34 pH Units (7.32-7.45) 04/17/17 12:40 ABG pCO2 44 mmHg (35-45) 04/17/17 12:40 ABG pO2 72 mmHg (85-104) L 04/17/17 12:40 ABG O2 Saturation 93 % (95-98) L 04/17/17 12:40 PT/INR, D-dimer PT 22.3 Seconds (9.4-12.1) H 04/17/17 03:02 - Impressions Impressions Guidance Needle Placement Ultrasound 04/17/17 00:00 IMPRESSION: 1. Right internal jugular vein temporary dialysis catheter placement as discussed above. D/ / Naldo Mann MD / Naldo Mann MD Interpreting Provider: Naldo Mann MD Insertion Non-Tunneled Catheter 04/17/17 00:00 IMPRESSION: 1. Right internal jugular vein temporary dialysis catheter placement as discussed above. D/ / Naldo Mann MD / Naldo Mann MD Interpreting Provider: Naldo Mann MD Consult Discharge Plan - Plan Referrals: Priyank Guajardo MD [Primary Care Provider] - <Shavon Rodarte - Last Filed: 04/17/17 17:02> Date of Encounter: 04/17/17 - Time Spent With Patient Total time spent is greater than 50% in coordination of care (as documented) at patient's floor/unit and/or counseling patient: GI History of Present Illness - Data of Consult Requesting Physician: Reinaldo Castillo MD - Consult Narrative History of present illness: Mr. Cárdenas is a 81 year old male - Constitutional Vitals: Temp Pulse Resp BP Pulse Ox 97.6 F 74 26 143/56 94 04/17/17 16:55 04/17/17 17:00 04/17/17 17:00 04/17/17 17:00 04/17/17 17:00 Results - Labs CBC & Chem 7: 04/17/17 03:02 04/17/17 03:02 Labs: Last Result Calcium 8.5 mg/dL (8.6-10.8) L 04/17/17 03:02 Troponin I 44.71 ng/mL (0-0.03) H* 04/16/17 13:25 Entire Visit Hgb 7.0 g/dL (12.9-16.9) L 04/17/17 03:02 Hct 22.6 % (37.5-50.1) L 04/17/17 03:02 PT 22.3 Seconds (9.4-12.1) H 04/17/17 03:02 Total Bilirubin 0.6 mg/dL (0.2-1.2) 04/17/17 03:02 AST 69 Units/L (5-34) H 04/17/17 03:02 ALT 59 Units/L (0-55) H 04/17/17 03:02 - ABG ABG results: ABG ABG pH 7.34 pH Units (7.32-7.45) 04/17/17 12:40 ABG pCO2 44 mmHg (35-45) 04/17/17 12:40 ABG pO2 72 mmHg (85-104) L 04/17/17 12:40 ABG O2 Saturation 93 % (95-98) L 04/17/17 12:40 PT/INR, D-dimer PT 22.3 Seconds (9.4-12.1) H 04/17/17 03:02 - Impressions Impressions Guidance Needle Placement Ultrasound 04/17/17 00:00 IMPRESSION: 1. Right internal jugular vein temporary dialysis catheter placement as discussed above. D/ / Naldo Mann MD / Naldo Mann MD Interpreting Provider: Naldo Mann MD Insertion Non-Tunneled Catheter 04/17/17 00:00 IMPRESSION: 1. Right internal jugular vein temporary dialysis catheter placement as discussed above. D/ / Naldo Mann MD / Naldo Mann MD Interpreting Provider: Naldo Mann MD - Attending Attestation I examined this patient and my medical decision-making was reviewed with the Resident Physician. I agree with the documented findings, disposition and treatment plan as described except to the extent set forth below.
--- NOTE | 2017-04-17 15:41 | Event Note ---
Date of Encounter: 04/17/17 Time of Encounter: 15:40 pamella blood coming for OG concerning for acute GI bleed (after rounds). Heparin gtt stop FFP given for INR >1.5 GI consulted PPI infusion started otherwise hemodynamically stable. F/u post transfusion CBC
[2017-04-17] MEDS ORDERED: *HR* Phytonadione 10 MG/ML AMPUL SQ ONE (16:58)
[2017-04-17] MEDS ORDERED: *HR* Heparin 10,000 UNIT/10 ML VIAL IV PRN (17:06)
[2017-04-17] MEDS ORDERED: 0.9 % Sodium Chloride 250 ML ONE (18:04)
[2017-04-17 19:04] LABS: Hepatitis B Surface Antibody 0.64 mIU/mL; Hepatitis B Surface Antigen Nonreactive (Nonreactive)
[2017-04-17] MEDS ORDERED: Perflutren Lipid Microsphere 1.3 ML in 0.9 % Sodium Chloride 8.7 ML IVP ONE (20:16)
[2017-04-17] MEDS: Pantoprazole 80 MG in 0.9 % Sodium Chloride 250 ML IVC SCH (23:53)
[2017-04-18] MEDS: MethylPREDNISolone 40 MG/ML VIAL IVP SCH ×3 (00:04→18:34)
[2017-04-18] MEDS: MetroNIDAZOLE 500 MG/100 ML 500 MG/100 ML BAG IVPB SCH ×2 (00:47→08:14)
[2017-04-18] MEDS: Cefepime HCl 2,000 MG in Water for inj. (sterile) 20 ML IVP SCH (02:08)
[2017-04-18] MEDS: Ipratropium/Albuterol Neb 3 ML IH SCH ×6 (03:11→23:11)
[2017-04-18] MEDS: Lacri-Lube 3.5 GM TUBE BOTH EYES SCH ×6 (03:51→23:31)
[2017-04-18] MEDS: Insulin LISPRO 300 UNITS/3 ML VIAL SQ SCH ×6 (03:52→23:30)
[2017-04-18 04:06] LABS: ABG Base Excess 4 mEq/L (-2 to 3); ABG HCO3 30 mEq/L (21-27); ABG Oxygen Saturation 95 % (95-98); ABG PCO2 47 mmHg (35-45); ABG PO2 74 mmHg (85-104); ABG TCO2 31 mEq/L (20-26); Blood Gas Modality VC; Blood Gas PEEP 8 cm H2O; Blood Gas Respiration Rate 22; Blood Gas VT 500 cc
[2017-04-18 05:09] LABS: Hematocrit 24.7 % (37.5-50.1); Hemoglobin 7.8 g/dL (12.9-16.9); Immature Granulocytes % 1.2 % (0-4); Lymphocytes # 0.4 K/mcL (0.6-4.6); Lymphocytes % 4.2 %; Mean Corpuscular HGB Conc 31.6 g/dL (31.6-35.5); Mean Corpuscular Hemoglobin 25.2 pg (28.0-33.3); Mean Corpuscular Volume 79.7 fL (83.0-100.0); Mean Platelet Volume 10.8 fL (9.4-12.4); Monocytes # 0.4 K/mcL (0.0-1.3); Monocytes % 4.1 %; Neutrophils # 8.4 K/mcL (1.6-8.9); Platelet Count 204 K/mcL (140-400); Red Cell Distribution Width 17.1 % (11.5-14.5); Segmented Neutrophils % 90.5 %
[2017-04-18 05:20] LABS: Albumin 2.3 g/dL (3.5-5.0); Albumin/Globulin Ratio 0.6 (1.1-2.2); Bilirubin,Direct 0.2 mg/dL (0.0-0.5); Bilirubin,Indirect 0.4 mg/dL (0.0-1.2); Bilirubin,Total 0.6 mg/dL (0.2-1.2); Globulin 3.8 g/dL (2.4-3.5); Magnesium 1.6 mg/dL (1.6-2.6); Phosphorous 3.7 mg/dL (2.3-4.7); Potassium 3.5 mEq/L (3.5-4.5); Total Protein 6.1 g/dL (6.0-8.3)
[2017-04-18 06:50] LABS: Prothrombin Time 21.5 Seconds (9.4-12.1)
[2017-04-18 06:54] LABS: Activated Partial Thrombo Time 28.9 Seconds (26.0-36.0)
--- NOTE | 2017-04-18 08:01 | Pulmonology Progress Note ---
<Marvin Noonan W - Last Filed: 04/18/17 10:08> Date of Encounter: 04/18/17 Objective PUL Vital signs: Last Vital Signs Temp 98.4 F 04/18/17 09:17 Pulse 82 04/18/17 09:17 Resp 21 04/18/17 09:20 BP 138/53 04/18/17 09:20 Pulse Ox 92 04/18/17 09:20 Ventilator Settings Ventilator Settings: Ventilator Settings, Last 8 Hours Ventilator Mode VC+ Ventilator Mode VC+ Ventilator Mode VC+ Ventilator Mode VC+ Ventilator Mode VC+ Ventilator Mode VC+ Ventilator Mode VC+ Ventilator Mode VC+ Ventilator Mode VC+ Ventilator Mode VC+ Ventilator Mode VC+ Ventilator Mode VC+ Ventilator Mode VC+ Ventilator Mode VC+ Ventilator Tidal Volume 500 Setting Ventilator Tidal Volume 500 Setting Ventilator Tidal Volume 500 Setting Ventilator Tidal Volume 500 Setting Ventilator Tidal Volume 500 Setting Ventilator Tidal Volume 500 Setting Ventilator Tidal Volume 500 Setting Ventilator Tidal Volume 500 Setting Ventilator Tidal Volume 500 Setting Ventilator Tidal Volume 500 Setting Ventilator Tidal Volume 500 Setting Ventilator Tidal Volume 500 Setting Ventilator Tidal Volume 500 Setting Ventilator Tidal Volume 500 Setting Ventilator Respiratory Rate 18 Setting Ventilator Respiratory Rate 18 Setting Ventilator Respiratory Rate 18 Setting Ventilator Respiratory Rate 18 Setting Ventilator Respiratory Rate 18 Setting Ventilator Respiratory Rate 22 Setting Ventilator Respiratory Rate 22 Setting Ventilator Respiratory Rate 22 Setting Ventilator Respiratory Rate 22 Setting Ventilator Respiratory Rate 22 Setting Ventilator Respiratory Rate 22 Setting Ventilator Respiratory Rate 22 Setting Ventilator Respiratory Rate 22 Setting Ventilator Respiratory Rate 22 Setting Actual Respiratory Rate 19 Actual Respiratory Rate 20 Actual Respiratory Rate 20 Actual Respiratory Rate 20 Actual Respiratory Rate 20 Actual Respiratory Rate 22 Actual Respiratory Rate 22 Actual Respiratory Rate 22 Actual Respiratory Rate 22 Actual Respiratory Rate 22 Actual Respiratory Rate 22 Actual Respiratory Rate 24 Actual Respiratory Rate 22 Positive End Expiratory 8 Pressure Positive End Expiratory 8 Pressure Positive End Expiratory 8 Pressure Positive End Expiratory 8 Pressure Positive End Expiratory 8 Pressure Positive End Expiratory 8 Pressure Positive End Expiratory 8 Pressure Positive End Expiratory 8 Pressure Positive End Expiratory 8 Pressure Positive End Expiratory 8 Pressure Positive End Expiratory 8 Pressure Positive End Expiratory 8 Pressure Positive End Expiratory 8 Pressure Positive End Expiratory 8 Pressure Peak Inspiratory Airway 25 Pressure Peak Inspiratory Airway 26 Pressure Peak Inspiratory Airway 29 Pressure Peak Inspiratory Airway 28 Pressure Peak Inspiratory Airway 27 Pressure Peak Inspiratory Airway 27 Pressure Peak Inspiratory Airway 25 Pressure Peak Inspiratory Airway 25 Pressure Peak Inspiratory Airway 27 Pressure Peak Inspiratory Airway 26 Pressure Peak Inspiratory Airway 28 Pressure Peak Inspiratory Airway 25 Pressure Peak Inspiratory Airway 25 Pressure Results - Laboratory Findings CBC and BMP: 04/18/17 04:45 04/18/17 04:45 ABG ABG pH 7.40 pH Units (7.32-7.45) 04/18/17 04:01 ABG pCO2 47 mmHg (35-45) H 04/18/17 04:01 ABG pO2 74 mmHg (85-104) L 04/18/17 04:01 ABG O2 Saturation 95 % (95-98) 04/18/17 04:01 PT/INR, D-dimer PT 21.5 Seconds (9.4-12.1) H 04/18/17 04:45 Abnormal lab findings: Abnormal lab results RBC 3.10 M/mcL (4.19-5.50) L 04/18/17 04:45 Hgb 7.8 g/dL (12.9-16.9) L 04/18/17 04:45 Hct 24.7 % (37.5-50.1) L 04/18/17 04:45 MCV 79.7 fL (83.0-100.0) L 04/18/17 04:45 MCH 25.2 pg (28.0-33.3) L 04/18/17 04:45 RDW 17.1 % (11.5-14.5) H 04/18/17 04:45 Lymphocytes # 0.4 K/mcL (0.6-4.6) L 04/18/17 04:45 Nucleated RBCs/100 WBC 0.2 /100 WBC (0) H 04/16/17 07:55 PT 21.5 Seconds (9.4-12.1) H 04/18/17 04:45 ABG pCO2 47 mmHg (35-45) H 04/18/17 04:01 ABG pO2 74 mmHg (85-104) L 04/18/17 04:01 ABG HCO3 30 mEq/L (21-27) H 04/18/17 04:01 ABG Total CO2 31 mEq/L (20-26) H 04/18/17 04:01 ABG Base Excess 4 mEq/L (-2 to 3) H 04/18/17 04:01 VBG pH 7.24 pH Units (7.32-7.42) L 04/17/17 10:00 VBG pCO2 62 mmHg (41-51) H 04/17/17 10:00 BUN 58 mg/dL (8-26) H 04/18/17 04:45 Creatinine 4.38 mg/dL (0.72-1.25) H 04/18/17 04:45 Est GFR ( Amer) 16 (> 60) L 04/18/17 04:45 Est GFR (Non-Af Amer) 13 (> 60) L 04/18/17 04:45 Glucose 190 mg/dL (70-99) H 04/18/17 04:45 POC Glucose 193 (58-89) H 04/18/17 07:44 Calculated Osmolality 317 (280-300) H 04/18/17 04:45 Uric Acid 10.0 mg/dL (3.5-7.2) H 04/16/17 13:25 Calcium 8.0 mg/dL (8.6-10.8) L 04/18/17 04:45 AST 43 Units/L (5-34) H 04/18/17 04:45 Creatine Kinase 361 Units/L (30-200) H 04/17/17 14:50 Troponin I 9.60 ng/mL (0-0.03) H* 04/17/17 23:25 B-Natriuretic Peptide 1199 pg/mL (0-100) H 04/16/17 13:25 Albumin 2.3 g/dL (3.5-5.0) L 04/18/17 04:45 Globulin 3.8 g/dL (2.4-3.5) H 04/18/17 04:45 Albumin/Globulin Ratio 0.6 (1.1-2.2) L 04/18/17 04:45 Urine Clarity Turbid (Clear) A 04/17/17 06:37 Ur Specific [place] 1.026 (1.010-1.025) H 04/17/17 06:37 Urine Protein 100 mg/dL (Neg-Trace) H 04/17/17 06:37 Urine Glucose (UA) 100 mg/dL (Normal) H 04/17/17 06:37 Urine Ketones Trace mg/dL (Negative) H 04/17/17 06:37 Urine Blood Large (Negative) H 04/17/17 06:37 Urine Bilirubin Small (Negative) H 04/17/17 06:37 Ur Leukocyte Esterase Small (Negative) H 04/17/17 06:37 - Microbiology Findings Microbiology Findings: Microbiology, Last 48 Hours 04/16/17 21:40 Sputum Culture - Preliminary Sputum 04/16/17 18:34 Blood Culture - Preliminary Peripheral Central Cath, Picc No growth. 04/16/17 16:31 Blood Culture - Preliminary Peripheral Venipuncture No growth. - Clinical Findings Intake & Output: Intake & Output 04/17/17 04/18/17 04/18/17 23:59 07:59 15:59 Intake Total 1750 / 1750 527 / 527 154 / 154 Output Total 377 / 377 30 / 30 Balance 1373 / 1373 497 / 497 154 / 154 Weight 123.03 kg Consult Discharge Plan - Plan Referrals: Priyank Guajardo MD [Primary Care Provider] - - Attending Attestation I examined this patient and my medical decision-making was reviewed with the Resident Physician. I agree with the documented findings, disposition and treatment plan as described except to the extent set forth below. We independently had [id number] contact with the patient Patient seen and examined at bedside Labs, radiology, chart personally reviewed. Management was reviewed during multidisciplinary critical care rounds. 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 Mild agitation requring precedex. stop benzo today. Narcotic infusion as needed for pain. Daily SAT. Pulm: Acute on chronic respiratory failure on vent. Acceptable oxygenation and ventilation today. Decreased RR for mild Alkalosis. Treated with BDs and Steroids for possible AECOPD. Supect primary cardiogenic pulmonary edema. Cards: NSTEMI s/p Cardiac Arrest. Trop peaked >40 Caridology following hemodynamically stable today. Holding heparin for possible ACS for GI hemorrhage.. Cont ASA BB and Statin FEN-GI:Cont Enteral Nutiriton cont PPi infusion GI consult for UGI Bleed. Improved clinically today Renal: VAHID on CKD remains anuric HD today for volume removal Appreciate Nephrology recs. ID: Treating for possible sepsis. MRSA negative x 48hours. stop flagyl. Heme/Onc: Acute on chronic anemia transufse RBCs today. Correcting coagulopathy. Cont SCDs. Endo: Glucose Monitored Integ/MSK: Skin Care per routine ICU Nursing Protocol to prevent ulcers. Lines: All lines examined without evidence of infection : Dispo: Remains in ICU for ongoing care. CODE: DNAR> Family updated a <Daysi Palafox H - Last Filed: 04/18/17 12:09> Date of Encounter: 04/18/17 Time of Encounter: 07:58 Assessment and Plan (1) Acute and chronic respiratory failure with hypercapnia Current Visit: Yes Status: Acute Cardiac arrest just prior to arrival likely secondary to COPD flare in the setting of medical comorbidities. -Patient's GCS 9, therefore no cooling per protocol. -Cardiology at [facility] prior to arrival recommending conservative management, felt EKG changes were secondary to respiratory/pulmonary process. -Possible acute exacerbation of COPD and likely cardiogenic pulmonary edema. Vent adjusted by Dr. Browne. -Patient currently intubated. -Dual nebs, IV steroids, IV cefepime and IV Flagyl started on April 16. (DC'd vanc 04/17 after 1 dose) -Follow-up ABGs closely. -04/18- Lactic acid stable over the last 12 hours at 1.8. -ABG pH 7.40, CO2 7, PO2 74, bicarbonate 30. Decreased respiratory rate 18. (2) [id number] kidney injury Current Visit: Yes Status: Acute Patient oliguric with stable urine creatinine after receiving hemodialysis yesterday (4.51 yesterday before HD and 4.38 this morning). Likely ATN secondary to hypotension during cardiac arrest. -Patient remains oliguric with urinary output of 42 mL overnight. -Continue to follow nephrology recommendations. Hemodialysis today. Qualifiers: Acute renal failure type: unspecified Chronic kidney disease stage: unspecified stage Qualified Code(s): N17.9 - Acute kidney failure, unspecified ; N18.9 - Chronic kidney disease, unspecified; N18.9 - Chronic kidney disease, unspecified (3) Elevated troponin Current Visit: No Status: Inactive Patient status post cardiac arrest thought to be a PDA as did not receive any shocks. This appears to be due to an NSTEMI as troponins peaked at 44. Troponin at midnight last night was 9.60, trending downwards. -Cardiology following. -Echocardiogram on April 16 shows preserved ejection fraction of 55-60%. -Patient's blood pressure have been stable, no evidence of cardiogenic shock. -Continue beta madeleine, statin, aspirin. -Heparin drip discontinued on 04/17 as patient developed bleeding from his OG tube. -Patient for left heart catheterization once able. -Coordination between GI and Cardiology. Aim for INR below 1.5 before endoscopy. May confound things for [facility]. -possible heparin challenge today. (4) Coffee ground emesis Current Visit: Yes Status: Acute Patient developed red bloody appearing fluid output from his OG tube 04/17. No longer visualized. Tube feeds started overnight -GI consulted. -PPI drip started, heparin drip discontinued 04/17. -INR 2, stable- unchanged after 2 units of fresh frozen plasma. -3 doses of 5mg vitamin K. -Goal INR 1.5- Keep patient NPO after midnight every night. Once INR gets to 1.5 , GI plans endoscopy. (5) Anemia Current Visit: Yes Status: Chronic Patient's hemoglobin 7.2 on admission and 7.8 this morning after 2 units packed red blood cells transfusion yesterday. -Anemia likely chronic at baseline. We will continue to transfuse for possible ACS with goal hemoglobin around 9. Qualifiers: Anemia type: iron deficiency Iron deficiency anemia type: unspecified iron deficiency Qualified Code(s): D50.9 - Iron deficiency anemia, unspecified (6) COPD (chronic obstructive pulmonary disease) Current Visit: Yes Status: Inactive Continue duonebs and steroids. Qualifiers: COPD type: unspecified COPD Qualified Code(s): J44.9 - Chronic obstructive pulmonary disease, unspecified (7) Pneumonia Current Visit: No Status: Resolved CXR 04/16- suspected right PE with increasing right basilar atelectasis or PNA. Improving pulmonary edema -Superimposed PNA- continue broad spectrum Abx coverage with cefepime and flagyl day 2 as above. -Vancomycin discontinued 04/17 to decrease renal insult. -Flagyl discontinued on April 18. - Qualifiers: Pneumonia type: due to unspecified organism Laterality: bilateral Lung location: unspecified part of lung Qualified Code(s): J18.9 - Pneumonia, unspecified organism (8) CHF (congestive heart failure) Current Visit: Yes Status: Acute CXR with improving pulmonary edema. Also, suspected right pleural effusion with increasing right basilar atelectasis or pneumonia. - Echo on 04/16 LVEF 55-60%. -suspect diastolic dysfunction or new onset systolic dysfunction. -Await cardiology recommendations. -Low-dose heparin drip discontinued 04/17 secondary to coffee-ground emesis per OG tube. -Asprin 325 through OG tube, bb, statin. Qualifiers: Congestive heart failure type: diastolic Congestive heart failure chronicity: unspecified congestive heart failure chronicity Qualified Code(s) : I50.30 - Unspecified diastolic (congestive) heart failure (9) Pulmonary edema Current Visit: Yes Status: Acute CXR with improving pulmonary edema. Also, suspected right pleural effusion with increasing right basilar atelectasis or pneumonia. Patient with elevated lactic acid likely from ischemia. Less likely sepsis as patient without tachycardia, tachypnea, leukocytosis or bandemia. -providing antibiotic coverage for PNA. Qualifiers: Chronicity: acute Qualified Code(s): J81.0 - Acute pulmonary edema (10) Cardiac arrest Current Visit: Yes Status: Acute Patient s/p cardiac arrest en route to [facility] x2 receiving two rounds of CPR, epinepherine, and 2 amps of sodium bicarbonate. -Patient still acidotic when arrived on ICU. -1 L of bicarbonate infused initially. -04/18- Ph normal, continue to monitor closely. (11) History of CVA (cerebrovascular accident) without residual deficits Current Visit: Yes Status: Acute Per review of medical record, patient does have past medical history of CVA, however, it is unclear at what point in time. Per family, patient has no residual deficits from his CVA. (12) Coronary artery disease Current Visit: Yes Status: Chronic Patient with a history of CABG [place] [address] Chu. -Continue medical management. Qualifiers: Coronary Disease-Associated Artery/Lesion type: [place] artery [place] vs. transplanted heart: [place] heart Associated angina: angina presence unspecified Qualified Code(s): I25.10 - Atherosclerotic heart disease of [place] coronary artery without angina pectoris (13) DVT prophylaxis Current Visit: Yes Status: Acute No medical anticoagulation as patient has coffee-ground emesis. -EPCDs -PPI drip secondary to GI bleed. Subjective Principal diagnosis: Multi- Organ System Failure Interval history: 81-year-old male with coronary artery disease status post CABG, CVA, PVD, diabetes mellitus type 2, hypertension, COPD on 3 liters nasal cannula at home, bilateral lower extremity weakness, and CHF presented to [facility] on 04-17-2017 s/p cardiac arrest and renal failure. Patient with 42 mls urinary output overnight. Coffee ground emesis no longer seen coming out of OG tube, tube feeds have been started. Patient with blood glucose readings in the 200's. 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 Bilateral movement noted during painful touch in the lower extremities. ) Ventilator Settings Ventilator Settings: Ventilator Settings, Last 8 Hours Ventilator Mode VC+ Ventilator Mode VC+ Ventilator Mode VC+ Ventilator Mode VC+ Ventilator Mode VC+ Ventilator Mode VC+ Ventilator Mode VC+ Ventilator Mode VC+ Ventilator Mode VC+ Ventilator Mode VC+ Ventilator Mode VC+ Ventilator Mode VC+ Ventilator Mode VC+ Ventilator Tidal Volume 500 Setting Ventilator Tidal Volume 500 Setting Ventilator Tidal Volume 500 Setting Ventilator Tidal Volume 500 Setting Ventilator Tidal Volume 500 Setting Ventilator Tidal Volume 500 Setting Ventilator Tidal Volume 500 Setting Ventilator Tidal Volume 500 Setting Ventilator Tidal Volume 500 Setting Ventilator Tidal Volume 500 Setting Ventilator Tidal Volume 500 Setting Ventilator Tidal Volume 500 Setting Ventilator Tidal Volume 500 Setting Ventilator Respiratory Rate 18 Setting Ventilator Respiratory Rate 18 Setting Ventilator Respiratory Rate 22 Setting Ventilator Respiratory Rate 22 Setting Ventilator Respiratory Rate 22 Setting Ventilator Respiratory Rate 22 Setting Ventilator Respiratory Rate 22 Setting Ventilator Respiratory Rate 22 Setting Ventilator Respiratory Rate 22 Setting Ventilator Respiratory Rate 22 Setting Ventilator Respiratory Rate 22 Setting Ventilator Respiratory Rate 22 Setting Ventilator Respiratory Rate 22 Setting Actual Respiratory Rate 20 Actual Respiratory Rate 20 Actual Respiratory Rate 22 Actual Respiratory Rate 22 Actual Respiratory Rate 22 Actual Respiratory Rate 22 Actual Respiratory Rate 22 Actual Respiratory Rate 22 Actual Respiratory Rate 24 Actual Respiratory Rate 22 Actual Respiratory Rate 22 Actual Respiratory Rate 22 Positive End Expiratory 8 Pressure Positive End Expiratory 8 Pressure Positive End Expiratory 8 Pressure Positive End Expiratory 8 Pressure Positive End Expiratory 8 Pressure Positive End Expiratory 8 Pressure Positive End Expiratory 8 Pressure Positive End Expiratory 8 Pressure Positive End Expiratory 8 Pressure Positive End Expiratory 8 Pressure Positive End Expiratory 8 Pressure Positive End Expiratory 8 Pressure Positive End Expiratory 8 Pressure Peak Inspiratory Airway 28 Pressure Peak Inspiratory Airway 27 Pressure Peak Inspiratory Airway 27 Pressure Peak Inspiratory Airway 25 Pressure Peak Inspiratory Airway 25 Pressure Peak Inspiratory Airway 27 Pressure Peak Inspiratory Airway 26 Pressure Peak Inspiratory Airway 28 Pressure Peak Inspiratory Airway 25 Pressure Peak Inspiratory Airway 25 Pressure Peak Inspiratory Airway 27 Pressure Peak Inspiratory Airway 29 Pressure Results - Laboratory Findings CBC and BMP: 04/18/17 04:45 04/18/17 04:45 ABG ABG pH 7.40 pH Units (7.32-7.45) 04/18/17 04:01 ABG pCO2 47 mmHg (35-45) H 04/18/17 04:01 ABG pO2 74 mmHg (85-104) L 04/18/17 04:01 ABG O2 Saturation 95 % (95-98) 04/18/17 04:01 PT/INR, D-dimer PT 21.5 Seconds (9.4-12.1) H 04/18/17 04:45 Abnormal lab findings: Abnormal lab results RBC 3.10 M/mcL (4.19-5.50) L 04/18/17 04:45 Hgb 7.8 g/dL (12.9-16.9) L 04/18/17 04:45 Hct 24.7 % (37.5-50.1) L 04/18/17 04:45 MCV 79.7 fL (83.0-100.0) L 04/18/17 04:45 MCH 25.2 pg (28.0-33.3) L 04/18/17 04:45 RDW 17.1 % (11.5-14.5) H 04/18/17 04:45 Lymphocytes # 0.4 K/mcL (0.6-4.6) L 04/18/17 04:45 Nucleated RBCs/100 WBC 0.2 /100 WBC (0) H 04/16/17 07:55 PT 21.5 Seconds (9.4-12.1) H 04/18/17 04:45 ABG pCO2 47 mmHg (35-45) H 04/18/17 04:01 ABG pO2 74 mmHg (85-104) L 04/18/17 04:01 ABG HCO3 30 mEq/L (21-27) H 04/18/17 04:01 ABG Total CO2 31 mEq/L (20-26) H 04/18/17 04:01 ABG Base Excess 4 mEq/L (-2 to 3) H 04/18/17 04:01 VBG pH 7.24 pH Units (7.32-7.42) L 04/17/17 10:00 VBG pCO2 62 mmHg (41-51) H 04/17/17 10:00 BUN 58 mg/dL (8-26) H 04/18/17 04:45 Creatinine 4.38 mg/dL (0.72-1.25) H 04/18/17 04:45 Est GFR ( Amer) 16 (> 60) L 04/18/17 04:45 Est GFR (Non-Af Amer) 13 (> 60) L 04/18/17 04:45 Glucose 190 mg/dL (70-99) H 04/18/17 04:45 POC Glucose 193 (58-89) H 04/18/17 07:44 Calculated Osmolality 317 (280-300) H 04/18/17 04:45 Uric Acid 10.0 mg/dL (3.5-7.2) H 04/16/17 13:25 Calcium 8.0 mg/dL (8.6-10.8) L 04/18/17 04:45 AST 43 Units/L (5-34) H 04/18/17 04:45 Creatine Kinase 361 Units/L (30-200) H 04/17/17 14:50 Troponin I 9.60 ng/mL (0-0.03) H* 04/17/17 23:25 B-Natriuretic Peptide 1199 pg/mL (0-100) H 04/16/17 13:25 Albumin 2.3 g/dL (3.5-5.0) L 04/18/17 04:45 Globulin 3.8 g/dL (2.4-3.5) H 04/18/17 04:45 Albumin/Globulin Ratio 0.6 (1.1-2.2) L 04/18/17 04:45 Urine Clarity Turbid (Clear) A 04/17/17 06:37 Ur Specific [place] 1.026 (1.010-1.025) H 04/17/17 06:37 Urine Protein 100 mg/dL (Neg-Trace) H 04/17/17 06:37 Urine Glucose (UA) 100 mg/dL (Normal) H 04/17/17 06:37 Urine Ketones Trace mg/dL (Negative) H 04/17/17 06:37 Urine Blood Large (Negative) H 04/17/17 06:37 Urine Bilirubin Small (Negative) H 04/17/17 06:37 Ur Leukocyte Esterase Small (Negative) H 04/17/17 06:37 - Microbiology Findings Microbiology Findings: Microbiology, Last 48 Hours 04/16/17 21:40 Sputum Culture - Preliminary Sputum 04/16/17 18:34 Blood Culture - Preliminary Peripheral Central Cath, Picc No growth. 04/16/17 16:31 Blood Culture - Preliminary Peripheral Venipuncture No growth. - Clinical Findings Intake & Output: Intake & Output 04/17/17 04/17/17 04/18/17 15:59 23:59 07:59 Intake Total 1285 / 1285 1750 / 1750 527 / 527 Output Total 377 / 377 30 / 30 Balance 1285 / 1285 1373 / 1373 497 / 497 Weight 123.03 kg - VTE Documentation of Mechanical Device: Intermittent pneumatic compression device
[2017-04-18] MEDS ORDERED: 0.9 % Sodium Chloride 250 ML IVC PRN (08:04)
--- NOTE | 2017-04-18 08:04 | Nephrology Progress Note ---
Date of Encounter: 04/18/17 Time of Encounter: 08:02 - Assessment and Plan (1) VAHID (acute kidney injury) Current Visit: Yes Status: Acute The patient has acute kidney injury superimposed on stage III chronic kidney disease in the setting of respiratory failure and cardiac arrest. Patient remains oliguric. The patient shows no sign of renal recovery. For that reason we will proceed with dialysis again today. Volume removal as tolerated. So far the patient has been hemodynamically stable. (2) Chronic kidney disease, stage III (moderate) Current Visit: Yes Status: Acute (3) Cardiac arrest Current Visit: Yes Status: Acute (4) Acute respiratory failure Current Visit: Yes Status: Acute Qualifiers: Qualified Code(s): J96.01 - Acute respiratory failure with hypoxia; J96.02 - Acute respiratory failure with hypercapnia; J96.02 - Acute respiratory failure with hypercapnia; J96.02 - Acute respiratory failure with hypercapnia (5) Non-STEMI (non-ST elevated myocardial infarction) Current Visit: Yes Status: Acute Subjective Principal diagnosis: Multi- Organ System Failure Interval history: The patient remains sedated on the ventilator. He had dialysis initiated yesterday. He tolerated it well. He remains oliguric. Creatinine is slightly improved. Objective - Vital Signs Vital signs: Vital Signs Temp Pulse Resp BP Pulse Ox 04/18/17 07:50 85 04/18/17 07:40 19 134/50 92 04/18/17 07:00 82 20 134/50 93 04/18/17 06:00 82 22 136/45 92 04/18/17 05:47 22 142/44 93 04/18/17 05:00 82 22 153/54 93 04/18/17 04:00 81 22 154/52 93 04/18/17 03:25 98.1 F 04/18/17 03:12 22 143/53 93 04/18/17 03:00 83 22 135/56 91 04/18/17 02:02 24 133/53 93 04/18/17 02:00 82 22 133/53 93 04/18/17 01:00 79 22 145/50 91 04/18/17 00:56 98.8 F 79 22 143/56 91 04/18/17 00:00 82 22 142/51 92 04/17/17 23:47 22 143/58 91 04/17/17 23:40 98.2 F 04/17/17 23:00 76 22 141/56 92 04/17/17 22:20 98.5 F 77 22 141/52 91 04/17/17 22:05 98.1 F 84 24 143/52 04/17/17 22:00 98.1 F 80 22 143/52 95 04/17/17 21:54 22 135/50 91 04/17/17 21:00 72 22 135/50 91 04/17/17 20:00 79 22 151/51 95 04/17/17 19:42 22 124/54 93 04/17/17 19:30 97.9 F 04/17/17 19:00 73 22 124/54 96 04/17/17 18:33 98.2 F 70 26 153/49 92 04/17/17 18:18 97.6 F 74 24 151/45 94 04/17/17 18:13 74 27 154/50 94 04/17/17 17:55 97.7 F 15 150/53 04/17/17 17:45 142/51 04/17/17 17:30 135/60 04/17/17 17:15 128/64 04/17/17 17:00 74 26 143/56 94 04/17/17 16:55 97.6 F 76 17 148/63 95 04/17/17 16:45 141/53 04/17/17 16:35 97.6 F 74 12 144/52 93 04/17/17 16:33 97.5 F L 04/17/17 16:30 130/66 04/17/17 16:20 97.5 F L 69 17 137/54 93 04/17/17 16:15 136/55 04/17/17 16:05 97.5 F L 70 16 139/54 93 04/17/17 16:00 134/66 04/17/17 15:45 134/49 04/17/17 15:42 97.5 F L 70 16 139/46 94 04/17/17 15:40 70 24 134/66 93 04/17/17 15:30 145/50 04/17/17 15:27 97.6 F 72 12 137/46 92 04/17/17 15:15 97.6 F 14 136/59 04/17/17 15:10 24 136/52 90 04/17/17 14:00 64 24 133/56 93 04/17/17 13:55 22 92/68 92 04/17/17 13:45 67 22 141/41 93 04/17/17 12:45 67 25 132/49 99 04/17/17 11:53 25 132/49 99 04/17/17 10:00 67 22 132/49 99 04/17/17 09:24 22 107/85 98 04/17/17 09:06 61 22 107/85 97 Intake and Output 04/17/17 04/18/17 04/18/17 23:59 07:59 15:59 Intake Total 1750 / 1750 527 / 527 Output Total 377 / 377 30 / 30 Balance 1373 / 1373 497 / 497 Intake: IV Fluids 450 / 450 120 / 120 FentaNYL (PF) 1,000 MCG In 0.9 100 / 100 % Sodium Chloride 80 ML @ 50 MCG/HR 5 mls/hr IVC CONT [facility] Rx #:[id number] Protonix 80 MG In 0.9 % Sodium 250 / 250 Chloride 250 ML @ 25 mls/hr IVC CONT [facility] Rx#:[id number] Maxipime 2,000 MG In Water for 20 / 20 inj. (sterile) 20 ML @ 300 mls/ hr IVP Q24H [facility] Rx#:[id number] Flagyl Premix 500 MG/100 ML 500 100 / 100 100 / 100 mg In 100 ml @ 100 mls/hr IVPB Q8HR [facility] Rx#:[id number] Tube Feeding 157 / 157 Blood Product 1300 / 1300 250 / 250 Plasma Unit [id number] 250 / 250 Plasma Unit [id number] 0 / 0 250 / 250 Rbcs Leuko Poor As-1 Unit 350 / 350 [id number] Rbcs Leuko Poor As-1 Unit 700 / 700 [id number] Output: Urine 0 / 0 15 / 15 Urethral (Bhakta) 15 / 15 Total Dialysis (HD) Output 0 / 0 Catheter 77 / 77 15 / 15 Gastric Drainage 300 / 300 Other: Weight 123.03 kg Blood Glucose* 185 204 Hemodialysis Net Fluid Removed 2000 (mL) Patient Weight 04/18/17 23:59 Weight 123.03 kg - General Appearance Exam: Patient is in no acute distress. Lungs breath sounds otherwise clear. Heart regular rate and rhythm. Abdomen shows diminished bowel sounds. Abdomen is soft there is no guarding or rigidity. There is some mild lower extremity swelling. There is a temporary dialysis catheter in the right internal jugular vein. - Lab 04/18/17 04:45 04/18/17 04:45 Most recent lab results ABG pH 7.40 pH Units (7.32-7.45) 04/18/17 04:01 ABG pCO2 47 mmHg (35-45) H 04/18/17 04:01 ABG pO2 74 mmHg (85-104) L 04/18/17 04:01 ABG HCO3 30 mEq/L (21-27) H 04/18/17 04:01 ABG O2 Saturation 95 % (95-98) 04/18/17 04:01 Calcium 8.0 mg/dL (8.6-10.8) L 04/18/17 04:45 Phosphorus 3.7 mg/dL (2.3-4.7) 04/18/17 04:45 Magnesium 1.6 mg/dL (1.6-2.6) 04/18/17 04:45 - VTE Documentation of Mechanical Device: Intermittent pneumatic compression device Consult Discharge Plan - Plan Referrals: Priyank Guajardo MD [Primary Care Provider] -
[2017-04-18] MEDS: Docusate Oral Soln 100 MG/10 ML UDC GTUBE SCH ×2 (08:13→19:59)
[2017-04-18] MEDS: Chlorhexidine Rinse 15 ML MOUTHWASH MM SCH ×2 (08:14→19:58)
[2017-04-18] MEDS: FentaNYL (PF) 1,000 MCG in 0.9 % Sodium Chloride 80 ML IVC SCH ×3 (08:14→22:04)
[2017-04-18] MEDS: Aspirin 81 MG TAB.CHEW PO SCH (08:14)
[2017-04-18] MEDS: Dexmedetomidine HCl 400 MCG/100 ML MLS IVC SCH ×3 (08:15→23:24)
[2017-04-18] MEDS ORDERED: 0.9 % Sodium Chloride 250 ML ONE (08:46)
[2017-04-18] MEDS ORDERED: Pantoprazole 40 MG VIAL IVP SCH (09:00)
[2017-04-18] MEDS: Pantoprazole 80 MG in 0.9 % Sodium Chloride 250 ML IVC SCH ×2 (10:43→19:55)
--- NOTE | 2017-04-18 13:28 | Cardiology Progress Note ---
Date of Encounter: 04/18/17 Time of Encounter: 12:10 Assessment and Plan (1) Cardiac arrest Current Visit: Yes Status: Acute Per Cardiology: Cardiopulmonary arrest likely multifactorial. EMS called due to respiratory distress per daughter. Pt with difficulty breathing for two days and refused to go to ER. SPO2 79% on EMS arrival. Once placed in squad patient developed cardiac arrest and received CPR in EMS and once he arrived to ED. Appeared to not have a shockable rhythm --no defibrillation used. No clear rhythm strips to review. SOB likely due to diastolic CHF and worsening renal function. Also had hyperkalemia. EKG did not demonstrate any evidence of STEMI- reviewed by interventionalist. Cardiac enzymes markedly elevated in setting of cardiopulmonary arrest/ NSTEMI. At this time, pt not candidate for invasive evaluation due to acute GI bleed and acute renal failure. Remains sedated on ventilator. Initial echocardiogram demonstrated normal LV function EF 55-60%. Wall motion abnormalities cannot be excluded. Repeat study completed showed atypical septal motion consistant with post-op status, otherwise no WMA. EF 60% . LHC when stable. Planning for EGD for GI bleed and then LHC when stable. (2) Non-STEMI (non-ST elevated myocardial infarction) Current Visit: Yes Status: Acute NSTEMI in the setting of cardiopulmonary arrest. Troponin 44. Aggressive medical therapy. Possible LHC once stable from anemia and renal standpoint. TTE shows preserved EF. Heparin gtt stopped d/t acute GI bleed. GI following. Continue asa, statin, and bb. Not a candidate for cardiac rehab at this time. (3) Coronary artery disease Current Visit: Yes Status: Chronic H/[place] CAB[place] [address] Rafat DLEEON to LAD, seq SVG to diag 2, OM1, SVG to R PDA. Continue medical management. Qualifiers: Coronary Disease-Associated Artery/Lesion type: [place] artery [place] vs. transplanted heart: [place] heart Associated angina: angina presence unspecified Qualified Code(s): I25.10 - Atherosclerotic heart disease of [place] coronary artery without angina pectoris (4) S/P CABG (coronary artery bypass graft) Current Visit: No Status: Chronic Discussion w patient/family: The assessment and plan as outlined above was discussed with the patient and/or family members who expressed understanding and agreement. All questions were answered. Thank you for involving us in the care of your patient. Please call with any questions. Subjective Principal diagnosis: Multi- Organ System Failure Interval history: Mr. Cárdenas remains intubated and sedated. Currently undergoing bedside dialysis. Objective Vital Signs, Last 4 Hours Temp Pulse Resp BP Pulse Ox 04/18/17 13:10 134/50 04/18/17 13:05 19 134/50 93 04/18/17 13:00 82 20 135/52 93 04/18/17 12:55 136/52 04/18/17 12:40 134/51 04/18/17 12:35 98.7 F 82 18 137/52 92 04/18/17 12:25 128/50 04/18/17 12:10 134/51 04/18/17 12:00 98.7 F 82 18 137/52 92 04/18/17 11:55 146/53 04/18/17 11:40 98.7 F 14 141/53 04/18/17 11:06 26 116/51 95 04/18/17 11:00 92 24 116/51 96 04/18/17 10:00 82 20 143/54 92 General: Other (sedated) HEENT: Atraumatic, Normocephaly, Mucus Membranes Moist, Other (NG, ET intact) Neck: No JVD, Normal carotid pulses Cardiac: Reg Rate and Rhythm, Normal S1 and S2, No Murmur Lungs: Other (Lung sounds diminished.) Neuro: Other (Sedated, unable to follow commands) Abdomen: Soft, Non-Tender Skin: No rashes noted on visualized skin Extremities: No Clubbing, No Cyanosis, Normal Pulses, Other (SKin pale, 2+ BLE edema.) Results 04/18/17 04:45 04/18/17 04:45 Lab Results 04/17/17 04/18/17 04/18/17 23:25 04:45 04:45 WBC 9.3 Hgb 7.8 L Hct 24.7 L Plt Count 204 INR APTT Sodium 143 Potassium 3.5 Chloride 103 Carbon Dioxide 28 BUN 58 H Creatinine 4.38 H Glucose 190 H Calcium 8.0 L Magnesium 1.6 Total Bilirubin 0.6 AST 43 H ALT 46 Alkaline Phosphatase 67 Troponin I 9.60 H* 04/18/17 04:45 WBC Hgb Hct Plt Count INR 2.0 APTT 28.9 D Sodium Potassium Chloride Carbon Dioxide BUN Creatinine Glucose Calcium Magnesium Total Bilirubin AST ALT Alkaline Phosphatase Troponin I - Imaging and Cardiology Echo: report reviewed - EKG Interpretation EKG results cardiology: personally reviewed - VTE Documentation of Mechanical Device: Intermittent pneumatic compression device Consult Discharge Plan - Plan Referrals: Priyank Guajardo MD [Primary Care Provider] -
[2017-04-18] MEDS ORDERED: *HR* Heparin 10,000 UNIT/10 ML VIAL IV PRN (13:39)
[2017-04-18] MEDS ORDERED: 0.9 % Sodium Chloride 2,000 ML ONE (13:44)
[2017-04-18 16:37] LABS: Basophils % 0.1 %; Immature Granulocytes % 0.9 % (0-4); Lymphocytes # 0.6 K/mcL (0.6-4.6); Lymphocytes % 4.8 %; Mean Corpuscular HGB Conc 31.6 g/dL (31.6-35.5); Mean Corpuscular Hemoglobin 25.3 pg (28.0-33.3); Mean Corpuscular Volume 80.1 fL (83.0-100.0); Mean Platelet Volume 10.5 fL (9.4-12.4); Monocytes % 7.8 %; Neutrophils # 10.7 K/mcL (1.6-8.9); Nucleated Red Blood Cells 0.3 /100 WBC (0); Platelet Count 225 K/mcL (140-400); Red Blood Count 3.87 M/mcL (4.19-5.50); Red Cell Distribution Width 17.2 % (11.5-14.5); Segmented Neutrophils % 86.4 %
[2017-04-18 16:39] LABS: INR 1.4; Prothrombin Time 15.6 Seconds (9.4-12.1)
[2017-04-18 16:48] LABS: Hemoglobin 9.8 g/dL (12.9-16.9)
--- NOTE | 2017-04-18 22:48 | Electrocardiograph Report ---
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
[2017-04-19] MEDS: Cefepime HCl 2,000 MG in Water for inj. (sterile) 20 ML IVP SCH (01:40)
[2017-04-19] MEDS: FentaNYL (PF) 3,000 MCG in 0.9 % Sodium Chloride 240 ML IVC SCH (03:28)
[2017-04-19] MEDS: Dexmedetomidine HCl 400 MCG/100 ML MLS IVC SCH ×4 (03:29→20:34)
[2017-04-19] MEDS: Ipratropium/Albuterol Neb 3 ML IH SCH ×6 (03:35→23:32)
[2017-04-19] MEDS: Lacri-Lube 3.5 GM TUBE BOTH EYES SCH ×5 (04:00→20:37)
[2017-04-19 05:06] LABS: ABG Base Excess 3 mEq/L (-2 to 3); ABG HCO3 29 mEq/L (21-27); ABG Oxygen Saturation 91 % (95-98); ABG PCO2 48 mmHg (35-45); ABG PH 7.38 pH Units (7.32-7.45); ABG PO2 62 mmHg (85-104); ABG TCO2 30 mEq/L (20-26); Blood Gas Modality PRVC; Blood Gas PEEP 8 cm H2O; Blood Gas Respiration Rate 18; Blood Gas VT 500 cc
[2017-04-19 05:31] LABS: Hematocrit 30.4 % (37.5-50.1); Hemoglobin 9.5 g/dL (12.9-16.9); Immature Granulocytes % 1.3 % (0-4); Lymphocytes # 0.6 K/mcL (0.6-4.6); Lymphocytes % 5.4 %; Mean Corpuscular HGB Conc 31.3 g/dL (31.6-35.5); Mean Corpuscular Hemoglobin 25.4 pg (28.0-33.3); Mean Corpuscular Volume 81.3 fL (83.0-100.0); Mean Platelet Volume 10.5 fL (9.4-12.4); Monocytes # 0.9 K/mcL (0.0-1.3); Monocytes % 8.5 %; Neutrophils # 9.2 K/mcL (1.6-8.9); Nucleated Red Blood Cells 0.3 /100 WBC (0); Platelet Count 214 K/mcL (140-400); Red Blood Count 3.74 M/mcL (4.19-5.50); Red Cell Distribution Width 17.1 % (11.5-14.5); Segmented Neutrophils % 84.8 %
[2017-04-19 05:32] LABS: INR 1.1; Prothrombin Time 11.9 Seconds (9.4-12.1)
[2017-04-19 05:34] LABS: Activated Partial Thrombo Time 24.1 Seconds (26.0-36.0)
[2017-04-19] MEDS: Insulin LISPRO 300 UNITS/3 ML VIAL SQ SCH ×5 (05:35→20:37)
[2017-04-19 05:39] LABS: Calcium 7.6 mg/dL (8.6-10.8); Potassium 4.2 mEq/L (3.5-4.5)
[2017-04-19] MEDS: Pantoprazole 80 MG in 0.9 % Sodium Chloride 250 ML IVC SCH (05:41)
[2017-04-19] MEDS: MethylPREDNISolone 40 MG/ML VIAL IVP SCH ×2 (05:44→18:38)
--- NOTE | 2017-04-19 07:05 | Electrocardiograph Report ---
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
--- NOTE | 2017-04-19 07:47 | Pulmonology Progress Note ---
Date of Encounter: 04/19/17 Time of Encounter: 07:30 Subjective Principal diagnosis: Multi- Organ System Failure Objective PUL Vital signs: Last Vital Signs Temp 99.8 F H 04/19/17 07:26 Pulse 80 04/19/17 06:00 Resp 19 04/19/17 07:32 BP 154/50 04/19/17 07:32 Pulse Ox 93 04/19/17 07:32 Ventilator Settings Ventilator Settings: Ventilator Settings, Last 8 Hours Ventilator Mode VC+ Ventilator Mode VC+ Ventilator Mode VC+ Ventilator Mode VC+ Ventilator Mode VC+ Ventilator Mode VC+ Ventilator Mode VC+ Ventilator Mode VC+ Ventilator Mode VC+ Ventilator Mode VC+ Ventilator Mode VC+ Ventilator Mode VC+ Ventilator Tidal Volume 500 Setting Ventilator Tidal Volume 500 Setting Ventilator Tidal Volume 500 Setting Ventilator Tidal Volume 500 Setting Ventilator Tidal Volume 500 Setting Ventilator Tidal Volume 500 Setting Ventilator Tidal Volume 500 Setting Ventilator Tidal Volume 500 Setting Ventilator Tidal Volume 500 Setting Ventilator Tidal Volume 500 Setting Ventilator Tidal Volume 500 Setting Ventilator Tidal Volume 500 Setting Ventilator Respiratory Rate 18 Setting Ventilator Respiratory Rate 18 Setting Ventilator Respiratory Rate 18 Setting Ventilator Respiratory Rate 18 Setting Ventilator Respiratory Rate 18 Setting Ventilator Respiratory Rate 18 Setting Ventilator Respiratory Rate 18 Setting Ventilator Respiratory Rate 18 Setting Ventilator Respiratory Rate 18 Setting Ventilator Respiratory Rate 18 Setting Ventilator Respiratory Rate 18 Setting Ventilator Respiratory Rate 18 Setting Actual Respiratory Rate 18 Actual Respiratory Rate 20 Actual Respiratory Rate 18 Actual Respiratory Rate 18 Actual Respiratory Rate 18 Actual Respiratory Rate 19 Actual Respiratory Rate 18 Actual Respiratory Rate 19 Actual Respiratory Rate 19 Actual Respiratory Rate 19 Actual Respiratory Rate 20 Positive End Expiratory 8 Pressure Positive End Expiratory 8 Pressure Positive End Expiratory 8 Pressure Positive End Expiratory 8 Pressure Positive End Expiratory 8 Pressure Positive End Expiratory 8 Pressure Positive End Expiratory 8 Pressure Positive End Expiratory 8 Pressure Positive End Expiratory 8 Pressure Positive End Expiratory 8 Pressure Positive End Expiratory 8 Pressure Positive End Expiratory 8 Pressure Peak Inspiratory Airway 47 Pressure Peak Inspiratory Airway 34 Pressure Peak Inspiratory Airway 32 Pressure Peak Inspiratory Airway 30 Pressure Peak Inspiratory Airway 30 Pressure Peak Inspiratory Airway 29 Pressure Peak Inspiratory Airway 30 Pressure Peak Inspiratory Airway 29 Pressure Peak Inspiratory Airway 32 Pressure Peak Inspiratory Airway 32 Pressure Peak Inspiratory Airway 26 Pressure Results - Laboratory Findings CBC and BMP: 04/19/17 05:15 04/19/17 05:15 ABG ABG pH 7.38 pH Units (7.32-7.45) 04/19/17 05:02 ABG pCO2 48 mmHg (35-45) H 04/19/17 05:02 ABG pO2 62 mmHg (85-104) L 04/19/17 05:02 ABG O2 Saturation 91 % (95-98) L 04/19/17 05:02 PT/INR, D-dimer PT 11.9 Seconds (9.4-12.1) 04/19/17 05:15 Abnormal lab findings: Abnormal lab results RBC 3.74 M/mcL (4.19-5.50) L 04/19/17 05:15 Hgb 9.5 g/dL (12.9-16.9) L 04/19/17 05:15 Hct 30.4 % (37.5-50.1) L 04/19/17 05:15 MCV 81.3 fL (83.0-100.0) L 04/19/17 05:15 MCH 25.4 pg (28.0-33.3) L 04/19/17 05:15 MCHC 31.3 g/dL (31.6-35.5) L 04/19/17 05:15 RDW 17.1 % (11.5-14.5) H 04/19/17 05:15 Neutrophils # 9.2 K/mcL (1.6-8.9) H 04/19/17 05:15 Nucleated RBCs/100 WBC 0.3 /100 WBC (0) H 04/19/17 05:15 APTT 24.1 Seconds (26.0-36.0) L 04/19/17 05:15 ABG pCO2 48 mmHg (35-45) H 04/19/17 05:02 ABG pO2 62 mmHg (85-104) L 04/19/17 05:02 ABG HCO3 29 mEq/L (21-27) H 04/19/17 05:02 ABG Total CO2 30 mEq/L (20-26) H 04/19/17 05:02 ABG O2 Saturation 91 % (95-98) L 04/19/17 05:02 VBG pH 7.24 pH Units (7.32-7.42) L 04/17/17 10:00 VBG pCO2 62 mmHg (41-51) H 04/17/17 10:00 BUN 54 mg/dL (8-26) H 04/19/17 05:15 Creatinine 4.28 mg/dL (0.72-1.25) H 04/19/17 05:15 Est GFR ( Amer) 16 (> 60) L 04/19/17 05:15 Est GFR (Non-Af Amer) 13 (> 60) L 04/19/17 05:15 Glucose 249 mg/dL (70-99) H 04/19/17 05:15 POC Glucose 230 (58-89) H 04/19/17 07:11 Calculated Osmolality 307 (280-300) H 04/19/17 05:15 Uric Acid 10.0 mg/dL (3.5-7.2) H 04/16/17 13:25 Calcium 7.6 mg/dL (8.6-10.8) L 04/19/17 05:15 AST 43 Units/L (5-34) H 04/18/17 04:45 Creatine Kinase 361 Units/L (30-200) H 04/17/17 14:50 Troponin I 9.60 ng/mL (0-0.03) H* 04/17/17 23:25 B-Natriuretic Peptide 1199 pg/mL (0-100) H 04/16/17 13:25 Albumin 2.3 g/dL (3.5-5.0) L 04/18/17 04:45 Globulin 3.8 g/dL (2.4-3.5) H 04/18/17 04:45 Albumin/Globulin Ratio 0.6 (1.1-2.2) L 04/18/17 04:45 Urine Clarity Turbid (Clear) A 04/17/17 06:37 Ur Specific [place] 1.026 (1.010-1.025) H 04/17/17 06:37 Urine Protein 100 mg/dL (Neg-Trace) H 04/17/17 06:37 Urine Glucose (UA) 100 mg/dL (Normal) H 04/17/17 06:37 Urine Ketones Trace mg/dL (Negative) H 04/17/17 06:37 Urine Blood Large (Negative) H 04/17/17 06:37 Urine Bilirubin Small (Negative) H 04/17/17 06:37 Ur Leukocyte Esterase Small (Negative) H 04/17/17 06:37 - Microbiology Findings Microbiology Findings: Microbiology, Last 48 Hours 04/16/17 21:40 Sputum Culture - Final Sputum 04/16/17 18:34 Blood Culture - Preliminary Peripheral Central Cath, Picc No growth. 04/16/17 16:31 Blood Culture - Preliminary Peripheral Venipuncture No growth. - Clinical Findings Intake & Output: Intake & Output 04/18/17 04/18/17 04/19/17 15:59 23:59 07:59 Intake Total 1724.5 / 1724.5 511 / 511 796 / 796 Output Total 40 / 40 0 / 0 200 / 200 Balance 1684.5 / 1684.5 511 / 511 596 / 596 - VTE Documentation of Mechanical Device: Graduated compression elastic hosiery Consult Discharge Plan - Plan Referrals: Priyank Guajardo MD [Primary Care Provider] -
[2017-04-19] MEDS ORDERED: 0.9 % Sodium Chloride 250 ML IVC PRN (07:52)
--- NOTE | 2017-04-19 07:52 | Nephrology Progress Note ---
Date of Encounter: 04/19/17 Time of Encounter: 07:50 - Assessment and Plan (1) VAHID (acute kidney injury) Current Visit: Yes Status: Acute The patient has acute kidney injury superimposed on stage III chronic kidney disease in the setting of respiratory failure and cardiac arrest. Patient remains oliguric. The patient shows no sign of renal recovery. The patient will undergo dialysis again today for control of azotemia and additional volume removal. (2) Chronic kidney disease, stage III (moderate) Current Visit: Yes Status: Acute (3) Cardiac arrest Current Visit: Yes Status: Acute (4) Acute respiratory failure Current Visit: Yes Status: Acute Qualifiers: Respiratory failure complication: hypoxia and hypercapnia Qualified Code(s) : J96.01 - Acute respiratory failure with hypoxia; J96.02 - Acute respiratory failure with hypercapnia; J96.02 - Acute respiratory failure with hypercapnia; J96.02 - Acute respiratory failure with hypercapnia (5) Non-STEMI (non-ST elevated myocardial infarction) Current Visit: Yes Status: Acute Subjective Principal diagnosis: Multi- Organ System Failure Interval history: Clinically the patient is unchanged. He remains on the ventilator. He remains oliguric. He is hemodynamically stable. He is undergone dialysis the past 2 days. Objective - Vital Signs Vital signs: Vital Signs Temp Pulse Resp BP Pulse Ox 04/19/17 07:32 19 154/50 93 04/19/17 07:26 99.8 F H 04/19/17 06:00 80 20 158/52 91 04/19/17 05:20 20 169/53 92 04/19/17 05:00 82 18 169/53 92 04/19/17 04:00 100.3 F H 84 18 170/61 91 04/19/17 03:35 21 166/61 93 04/19/17 03:00 88 18 157/50 92 04/19/17 02:00 82 19 155/56 93 04/19/17 01:22 19 152/58 92 04/19/17 01:00 81 19 161/61 92 04/19/17 00:00 100.6 F H 84 20 148/45 93 04/18/17 23:11 18 142/47 89 04/18/17 23:00 82 18 152/56 93 04/18/17 22:00 79 23 160/53 92 04/18/17 21:25 20 132/52 93 04/18/17 21:00 70 22 132/52 93 04/18/17 20:00 78 21 133/43 94 04/18/17 19:59 20 134/45 93 04/18/17 19:40 99.5 F 04/18/17 19:00 74 20 134/45 92 04/18/17 18:00 75 18 133/41 93 05 17:17 26 127/36 92 04/18/17 17:00 78 20 140/39 94 04/18/17 16:18 20 133/38 94 05 16:00 99.0 F 73 20 133/38 96 04/18/17 15:00 74 24 142/65 96 04/18/17 14:50 98.2 F 16 132/53 04/18/17 14:40 117/50 04/18/17 14:25 126/41 04/18/17 14:10 122/47 04/18/17 13:55 129/51 04/18/17 13:53 74 18 129/51 94 04/18/17 13:51 74 18 129/51 94 04/18/17 13:40 132/55 04/18/17 13:25 127/58 04/18/17 13:10 134/50 04/18/17 13:05 19 134/50 93 04/18/17 13:00 82 20 135/52 93 04/18/17 12:55 136/52 04/18/17 12:40 134/51 04/18/17 12:35 98.7 F 82 18 137/52 92 04/18/17 12:25 128/50 04/18/17 12:10 134/51 04/18/17 12:00 98.7 F 82 18 137/52 92 04/18/17 11:55 146/53 04/18/17 11:40 98.7 F 14 141/53 04/18/17 11:06 26 116/51 95 04/18/17 11:00 92 24 116/51 96 05 10:00 82 20 143/54 92 04/18/17 09:20 21 138/53 92 04/18/17 09:17 98.4 F 82 20 137/51 91 04/18/17 09:02 98.4 F 84 20 138/53 04/18/17 09:00 84 20 138/53 93 04/18/17 08:00 98.4 F 78 20 143/50 92 Intake and Output 04/18/17 04/18/17 04/19/17 15:59 23:59 07:59 Intake Total 1724.5 / 1724.5 511 / 511 796 / 796 Output Total 40 / 40 0 / 0 200 / 200 Balance 1684.5 / 1684.5 511 / 511 596 / 596 Intake: IV Fluids 654.5 / 654.5 450 / 450 470 / 470 PRECEDEX Premix 400 mcg In 100 100 / 100 100 / 100 100 / 100 ml @ 0.2 MCG/KG/HR 6.152 mls/hr IVC .[id number] RADHA Rx#: [id number] FentaNYL (PF) 1,000 MCG In 0.9 200 / 200 100 / 100 100 / 100 % Sodium Chloride 80 ML @ 50 MCG/HR 5 mls/hr IVC CONT RADHA Rx #:[id number] Versed 50 MG In 0.9 % Sodium 54 / 54 Chloride 90 ML @ 2 MG/HR 4 mls/ hr IVC CONT RADHA Rx#:[id number] Protonix 80 MG In 0.9 % Sodium 250 / 250 250 / 250 250 / 250 Chloride 250 ML @ 8 MG/HR 25 mls/hr IVC .Q10H RADHA Rx#: [id number] Maxipime 2,000 MG In Water for 20 / 20 inj. (sterile) 20 ML @ 300 mls/ hr IVP Q24H RADHA Rx#:[id number] AquaMephyton 5 MG In 0.9 % 50.5 / 50.5 Sodium Chloride 50 ML @ 100 mls /hr IVPB Q24H RADHA Rx#: [id number] Oral 0 / 0 Tube Feeding 100 / 100 61 / 61 326 / 326 Blood Product 370 / 370 Rbcs Leuko Poor As-1 Unit 370 / 370 [id number] Intake, Rinseback and Flushes 600 / 600 Output: Urine 0 / 0 Total Dialysis (HD) Output 0 / 0 Catheter 40 / 40 0 / 0 200 / 200 Other: Blood Glucose* 104 45 230 Hemodialysis Net Fluid Removed 3000 (mL) - General Appearance Exam: Patient is sedated on the ventilator. He is in no acute distress. Lungs coarse breath sounds otherwise clear. Heart regular rate and rhythm. Abdomen is somewhat distended. There is no guarding no rigidity. There is some mild lower extremity swelling. Is a temporary dialysis catheter in the right internal jugular vein. - Lab 04/19/17 05:15 04/19/17 05:15 Most recent lab results ABG pH 7.38 pH Units (7.32-7.45) 04/19/17 05:02 ABG pCO2 48 mmHg (35-45) H 04/19/17 05:02 ABG pO2 62 mmHg (85-104) L 04/19/17 05:02 ABG HCO3 29 mEq/L (21-27) H 04/19/17 05:02 ABG O2 Saturation 91 % (95-98) L 04/19/17 05:02 Calcium 7.6 mg/dL (8.6-10.8) L 04/19/17 05:15 Phosphorus 3.7 mg/dL (2.3-4.7) 04/18/17 04:45 Magnesium 1.6 mg/dL (1.6-2.6) 04/18/17 04:45 - VTE Documentation of Mechanical Device: Graduated compression elastic hosiery Consult Discharge Plan - Plan Referrals: Priyank Guajardo MD [Primary Care Provider] -
[2017-04-19] MEDS: Docusate Oral Soln 100 MG/10 ML UDC GTUBE SCH ×2 (07:53→20:37)
[2017-04-19] MEDS: Aspirin 81 MG TAB.CHEW PO SCH (07:54)
[2017-04-19] MEDS: Chlorhexidine Rinse 15 ML MOUTHWASH MM SCH ×2 (07:54→20:37)
[2017-04-19] MEDS ORDERED: 0.9 % Sodium Chloride 1,000 ML ONE (08:31)
--- NOTE | 2017-04-19 09:40 | Pulmonology Progress Note ---
Date of Encounter: 04/19/17 Time of Encounter: 09:40 Assessment and Plan (1) Acute and chronic respiratory failure with hypercapnia Current Visit: Yes Status: Acute Patient seen and examined at bedside Labs, radiology, chart personally reviewed. Management was reviewed during multidisciplinary critical care rounds. 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 Remains on ventilator acceptable oxygenation ventilation I just his vent to decreased respiratory rate and FiO2 today. He is not currently a candidate for spontaneous breathing trial because of PEEP >7. con steroids and BDs Cards: Status post cardiac arrest possibly secondary to an STEMI with ACS cardiology following plan for left heart catheter continue beta madeleine and statin and aspirin resumption of heparin per cardiology recommendations. Blood pressure stable FEN-GI: Continue enteral nutrition continue GI prophylaxis. Upper GI bleed status post endoscopy yesterday without any evidence of active bleeding. Mild gastritis with several polyps. Renal: Remains anuric plan for HD today for volume removal for cardiogenic pulmonary edema continue to monitor and replace electrolytes per protocol ID: Possible sepsis at time of presentation although mild leukocytosis without pyrexia has resolved. Plan to stop cefepime at 5 days cultures remain negative Heme/Onc: DVT prophylaxis given. Acute on chronic anemia secondary to gastrointestinal hemorrhage is stabilized hemoglobin greater than 9 today which is goal. Coagulopathy is resolved stop vitamin K Endo: Glucose Monitored Integ/MSK: Skin Care per routine ICU Nursing Protocol to prevent ulcers. Lines: All lines examined without evidence of infection : Dispo: Remain ICU for vent management CODE: DNAR (2) Acute exacerbation of chronic obstructive airways disease Current Visit: No Status: Acute (3) Anemia Current Visit: Yes Status: Chronic Qualifiers: Anemia type: iron deficiency Iron deficiency anemia type: unspecified iron deficiency Qualified Code(s): D50.9 - Iron deficiency anemia, unspecified (4) Heart failure, diastolic Current Visit: No Status: Chronic Qualifiers: Heart failure chronicity: acute on chronic Qualified Code(s): I50.33 - Acute on chronic diastolic (congestive) heart failure (5) [id number] kidney injury Current Visit: Yes Status: Acute Qualifiers: Acute renal failure type: unspecified Chronic kidney disease stage: unspecified stage Qualified Code(s): N17.9 - Acute kidney failure, unspecified ; N18.9 - Chronic kidney disease, unspecified; N18.9 - Chronic kidney disease, unspecified (6) Non-STEMI (non-ST elevated myocardial infarction) Current Visit: Yes Status: Acute (7) UGI bleed Current Visit: Yes Status: Acute Subjective Principal diagnosis: Multi- Organ System Failure Interval history: Patient was hemodynamically stable overnight. Underwent endoscopy yesterday which showed mild gastritis and a few polyps no evidence of active bleeding. Objective PUL Vital signs: Last Vital Signs Temp 98.9 F 04/19/17 09:00 Pulse 77 04/19/17 09:00 Resp 24 04/19/17 09:00 BP 140/41 04/19/17 09:00 Pulse Ox 95 04/19/17 09:00 General appearance: other (Sedated but easily arousable he is able to follow commands) Eyes: nonicteric Auscultation: bilateral: rales Cardiovascular: regular rate and rhythm Gastrointestinal: normoactive bowel sounds, soft Extremities: edema non-focal exam, other (Both pupils react to light) Ventilator Settings Ventilator Settings: Ventilator Settings, Last 8 Hours Ventilator Mode VC+ Ventilator Mode VC+ Ventilator Mode VC+ Ventilator Mode VC+ Ventilator Mode VC+ Ventilator Mode VC+ Ventilator Mode VC+ Ventilator Mode VC+ Ventilator Mode VC+ Ventilator Mode VC+ Ventilator Mode VC+ Ventilator Tidal Volume 500 Setting Ventilator Tidal Volume 500 Setting Ventilator Tidal Volume 500 Setting Ventilator Tidal Volume 500 Setting Ventilator Tidal Volume 500 Setting Ventilator Tidal Volume 500 Setting Ventilator Tidal Volume 500 Setting Ventilator Tidal Volume 500 Setting Ventilator Tidal Volume 500 Setting Ventilator Tidal Volume 500 Setting Ventilator Tidal Volume 500 Setting Ventilator Respiratory Rate 18 Setting Ventilator Respiratory Rate 18 Setting Ventilator Respiratory Rate 18 Setting Ventilator Respiratory Rate 18 Setting Ventilator Respiratory Rate 18 Setting Ventilator Respiratory Rate 18 Setting Ventilator Respiratory Rate 18 Setting Ventilator Respiratory Rate 18 Setting Ventilator Respiratory Rate 18 Setting Ventilator Respiratory Rate 18 Setting Ventilator Respiratory Rate 18 Setting Actual Respiratory Rate 24 Actual Respiratory Rate 18 Actual Respiratory Rate 18 Actual Respiratory Rate 20 Actual Respiratory Rate 18 Actual Respiratory Rate 18 Actual Respiratory Rate 18 Actual Respiratory Rate 19 Actual Respiratory Rate 18 Actual Respiratory Rate 19 Positive End Expiratory 8 Pressure Positive End Expiratory 8 Pressure Positive End Expiratory 8 Pressure Positive End Expiratory 8 Pressure Positive End Expiratory 8 Pressure Positive End Expiratory 8 Pressure Positive End Expiratory 8 Pressure Positive End Expiratory 8 Pressure Positive End Expiratory 8 Pressure Positive End Expiratory 8 Pressure Positive End Expiratory 8 Pressure Peak Inspiratory Airway 26 Pressure Peak Inspiratory Airway 26 Pressure Peak Inspiratory Airway 47 Pressure Peak Inspiratory Airway 34 Pressure Peak Inspiratory Airway 32 Pressure Peak Inspiratory Airway 30 Pressure Peak Inspiratory Airway 30 Pressure Peak Inspiratory Airway 29 Pressure Peak Inspiratory Airway 30 Pressure Peak Inspiratory Airway 29 Pressure Results - Laboratory Findings CBC and BMP: 04/19/17 05:15 04/19/17 05:15 ABG ABG pH 7.38 pH Units (7.32-7.45) 04/19/17 05:02 ABG pCO2 48 mmHg (35-45) H 04/19/17 05:02 ABG pO2 62 mmHg (85-104) L 04/19/17 05:02 ABG O2 Saturation 91 % (95-98) L 04/19/17 05:02 PT/INR, D-dimer PT 11.9 Seconds (9.4-12.1) 04/19/17 05:15 Abnormal lab findings: Abnormal lab results RBC 3.74 M/mcL (4.19-5.50) L 04/19/17 05:15 Hgb 9.5 g/dL (12.9-16.9) L 04/19/17 05:15 Hct 30.4 % (37.5-50.1) L 04/19/17 05:15 MCV 81.3 fL (83.0-100.0) L 04/19/17 05:15 MCH 25.4 pg (28.0-33.3) L 04/19/17 05:15 MCHC 31.3 g/dL (31.6-35.5) L 04/19/17 05:15 RDW 17.1 % (11.5-14.5) H 04/19/17 05:15 Neutrophils # 9.2 K/mcL (1.6-8.9) H 04/19/17 05:15 Nucleated RBCs/100 WBC 0.3 /100 WBC (0) H 04/19/17 05:15 APTT 24.1 Seconds (26.0-36.0) L 04/19/17 05:15 ABG pCO2 48 mmHg (35-45) H 04/19/17 05:02 ABG pO2 62 mmHg (85-104) L 04/19/17 05:02 ABG HCO3 29 mEq/L (21-27) H 04/19/17 05:02 ABG Total CO2 30 mEq/L (20-26) H 04/19/17 05:02 ABG O2 Saturation 91 % (95-98) L 04/19/17 05:02 VBG pH 7.24 pH Units (7.32-7.42) L 04/17/17 10:00 VBG pCO2 62 mmHg (41-51) H 04/17/17 10:00 BUN 54 mg/dL (8-26) H 04/19/17 05:15 Creatinine 4.28 mg/dL (0.72-1.25) H 04/19/17 05:15 Est GFR ( Amer) 16 (> 60) L 04/19/17 05:15 Est GFR (Non-Af Amer) 13 (> 60) L 04/19/17 05:15 Glucose 249 mg/dL (70-99) H 04/19/17 05:15 POC Glucose 230 (58-89) H 04/19/17 07:11 Calculated Osmolality 307 (280-300) H 04/19/17 05:15 Uric Acid 10.0 mg/dL (3.5-7.2) H 04/16/17 13:25 Calcium 7.6 mg/dL (8.6-10.8) L 04/19/17 05:15 AST 43 Units/L (5-34) H 04/18/17 04:45 Creatine Kinase 361 Units/L (30-200) H 04/17/17 14:50 Troponin I 9.60 ng/mL (0-0.03) H* 04/17/17 23:25 B-Natriuretic Peptide 1199 pg/mL (0-100) H 04/16/17 13:25 Albumin 2.3 g/dL (3.5-5.0) L 04/18/17 04:45 Globulin 3.8 g/dL (2.4-3.5) H 04/18/17 04:45 Albumin/Globulin Ratio 0.6 (1.1-2.2) L 04/18/17 04:45 Urine Clarity Turbid (Clear) A 04/17/17 06:37 Ur Specific [place] 1.026 (1.010-1.025) H 04/17/17 06:37 Urine Protein 100 mg/dL (Neg-Trace) H 04/17/17 06:37 Urine Glucose (UA) 100 mg/dL (Normal) H 04/17/17 06:37 Urine Ketones Trace mg/dL (Negative) H 04/17/17 06:37 Urine Blood Large (Negative) H 04/17/17 06:37 Urine Bilirubin Small (Negative) H 04/17/17 06:37 Ur Leukocyte Esterase Small (Negative) H 04/17/17 06:37 - Microbiology Findings Microbiology Findings: Microbiology, Last 48 Hours 04/16/17 21:40 Sputum Culture - Final Sputum 04/16/17 18:34 Blood Culture - Preliminary Peripheral Central Cath, Picc No growth. 04/16/17 16:31 Blood Culture - Preliminary Peripheral Venipuncture No growth. - Clinical Findings Intake & Output: Intake & Output 04/18/17 04/19/17 04/19/17 23:59 07:59 15:59 Intake Total 511 / 511 796 / 796 175 / 175 Output Total 0 / 0 200 / 200 Balance 511 / 511 596 / 596 175 / 175 - VTE Documentation of Mechanical Device: Intermittent pneumatic compression device Consult Discharge Plan - Plan Referrals: Priyank Guajardo MD [Primary Care Provider] -
--- NOTE | 2017-04-19 12:27 | Electrocardiograph Report ---
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
[2017-04-19] MEDS ORDERED: *HR* Heparin 10,000 UNIT/10 ML VIAL IV PRN (13:24)
[2017-04-19] MEDS ORDERED: *HR* Heparin 5,000 UNIT/ML VIAL SQ SCH (14:00)
[2017-04-19] MEDS: Albumin 25% 25gram/100mL 25 GM/100 ML IV.SOLN IVPB SCH ×2 (14:45→14:57)
--- NOTE | 2017-04-19 15:57 | Cardiology Progress Note ---
Date of Encounter: 04/19/17 Time of Encounter: 12:20 Assessment and Plan (1) Cardiac arrest Current Visit: Yes Status: Acute Per Cardiology: Cardiopulmonary arrest likely multifactorial. Patient thought to have PEA. He did not receive defibrillation. EKG did not demonstrate any evidence of STEMI- reviewed by interventionalist. Cardiac enzymes markedly elevated in setting of cardiopulmonary arrest/ NSTEMI. At this time, pt not candidate for invasive evaluation due to acute GI bleed and acute renal failure. Remains sedated on ventilator. Initial echocardiogram demonstrated normal LV function EF 55-60%. Wall motion abnormalities cannot be excluded. Repeat study completed showed atypical septal motion consistent with post-op status, otherwise no WMA. EF 60%. LHC when stable. EGD completed for GI bleed. No acute bleeding seen. Discussed with the interventionalist and Dr. De La O. We will start heparin gtt again for ACS protocal and plan for possible LHC. Will continue to monitor, once kidney function and respiratory status improves will proceed with ischemic evaluation. Telemetry review shows NSR. AVG HR 80. Occasional small runs of SVT up to 12 beats long, 9 occurrences. Occasional PVC. Occasional couplet. (2) Non-STEMI (non-ST elevated myocardial infarction) Current Visit: Yes Status: Acute NSTEMI in the setting of cardiopulmonary arrest. Troponin 44. Aggressive medical therapy. Possible LHC once stable from anemia and renal standpoint. TTE shows preserved EF. GI bleed resolved. Will restart heparin. Continue asa, statin, and bb. Not a candidate for cardiac rehab at this time. (3) Coronary artery disease Current Visit: Yes Status: Chronic H/[place] CAB[place] [address] Rafat DELEON to LAD, seq SVG to diag 2, OM1, SVG to R PDA. Continue medical management. Qualifiers: Coronary Disease-Associated Artery/Lesion type: [place] artery [place] vs. transplanted heart: [place] heart Associated angina: angina presence unspecified Qualified Code(s): I25.10 - Atherosclerotic heart disease of [place] coronary artery without angina pectoris (4) S/P CABG (coronary artery bypass graft) Current Visit: No Status: Chronic (5) Heart failure, diastolic Current Visit: No Status: Chronic DCHF complicated by worsening renal failure. Fluid status per nephrology. On dialysis. Qualifiers: Heart failure chronicity: acute on chronic Qualified Code(s): I50.33 - Acute on chronic diastolic (congestive) heart failure Discussion w patient/family: The assessment and plan as outlined above was discussed with the patient and/or family members who expressed understanding and agreement. All questions were answered. Thank you for involving us in the care of your patient. Please call with any questions. Subjective Principal diagnosis: NSTEMI, cardiopulmonary arrest Interval history: Mr. Cárdenas remains intubated and sedated. Currently undergoing bedside dialysis. Discussed care with family in the waiting room. Objective Vital Signs, Last 4 Hours Temp Pulse Resp BP Pulse Ox 04/19/17 15:30 125/41 04/19/17 15:23 19 114/30 97 04/19/17 15:15 109/33 04/19/17 15:00 111/32 04/19/17 14:45 104/42 04/19/17 14:15 109/34 04/19/17 14:00 75 20 93/36 95 04/19/17 13:50 21 105/30 97 04/19/17 13:45 114/41 04/19/17 13:30 116/37 04/19/17 13:15 115/34 04/19/17 13:00 71 18 110/36 96 04/19/17 12:45 112/32 04/19/17 12:30 114/39 04/19/17 12:15 109/36 04/19/17 12:00 71 19 115/36 96 04/19/17 11:56 100.0 F H 04/19/17 11:45 100.0 F H 15 132/37 General: No Apparent Distress, Other (Intubated on ventilator and sedated. ) HEENT: Atraumatic, Normocephaly, Mucus Membranes Moist Neck: No JVD, Normal carotid pulses Cardiac: Reg Rate and Rhythm, Normal S1 and S2, No Murmur Lungs: Normal Breath Sounds, No Wheeze, Rales, Rhonchi Neuro: Other (sedated and does not follow commands) Abdomen: Soft, Non-Tender Skin: No rashes noted on visualized skin Musculoskeletal: No Chest Wall Tenderness Extremities: No Clubbing, No Cyanosis, Normal Pulses, Other (1+ BLE edema) Results 04/19/17 05:15 04/19/17 05:15 Lab Results 04/18/17 04/18/17 04/19/17 16:10 16:10 05:15 WBC 12.4 H Hgb 9.8 L D Hct 31.0 L Plt Count 225 INR 1.4 1.1 APTT 24.1 L Sodium Potassium Chloride Carbon Dioxide BUN Creatinine Glucose Calcium 04/19/17 04/19/17 05:15 05:15 WBC 10.8 Hgb 9.5 L Hct 30.4 L Plt Count 214 INR APTT Sodium 137 Potassium 4.2 Chloride 98 Carbon Dioxide 25 BUN 54 H Creatinine 4.28 H Glucose 249 H Calcium 7.6 L - Imaging and Cardiology Echo: report reviewed - VTE Documentation of Mechanical Device: Intermittent pneumatic compression device Consult Discharge Plan - Plan Referrals: Priyank Guajardo MD [Primary Care Provider] -
[2017-04-19] MEDS ORDERED: *HR* Heparin 5,000 UNIT/ML VIAL IVP PRN ×2 (16:03)
[2017-04-19] MEDS: Heparin 25,000 UNIT/500 ML D5W 25,000 UNIT/500 ML BAG IVC SCH (16:59)
[2017-04-19 17:04] LABS: INR 1.1
[2017-04-19 17:07] LABS: Activated Partial Thrombo Time 24.3 Seconds (26.0-36.0)
[2017-04-19 17:20] LABS: Hematocrit 28.1 % (37.5-50.1); Hemoglobin 8.9 g/dL (12.9-16.9); Mean Corpuscular HGB Conc 31.7 g/dL (31.6-35.5); Mean Corpuscular Hemoglobin 25.9 pg (28.0-33.3); Mean Corpuscular Volume 81.9 fL (83.0-100.0); Mean Platelet Volume 10.6 fL (9.4-12.4); Platelet Count 199 K/mcL (140-400); Red Blood Count 3.43 M/mcL (4.19-5.50); Red Cell Distribution Width 17.1 % (11.5-14.5)
[2017-04-19] MEDS: Pantoprazole 40 MG VIAL IVP SCH (18:38)
[2017-04-20] MEDS: Insulin LISPRO 300 UNITS/3 ML VIAL SQ SCH ×7 (00:09→23:56)
[2017-04-20] MEDS: Lacri-Lube 3.5 GM TUBE BOTH EYES SCH ×3 (00:09→08:11)
[2017-04-20] MEDS: Cefepime HCl 2,000 MG in Water for inj. (sterile) 20 ML IVP SCH (02:46)
[2017-04-20 03:48] LABS: ABG Base Excess 5 mEq/L (-2 to 3); ABG HCO3 31 mEq/L (21-27); ABG Oxygen Saturation 91 % (95-98); ABG PCO2 51 mmHg (35-45); ABG PH 7.39 pH Units (7.32-7.45); ABG PO2 64 mmHg (85-104); ABG TCO2 32 mEq/L (20-26); Blood Gas Modality VC; Blood Gas PEEP 6 cm H2O; Blood Gas Respiration Rate 16; Blood Gas VT 500 cc
[2017-04-20] MEDS: Ipratropium/Albuterol Neb 3 ML IH SCH ×6 (04:03→19:34)
[2017-04-20] MEDS: Dexmedetomidine HCl 400 MCG/100 ML MLS IVC SCH (04:32)
[2017-04-20] MEDS: FentaNYL (PF) 3,000 MCG in 0.9 % Sodium Chloride 240 ML IVC SCH (05:18)
[2017-04-20] MEDS: Pantoprazole 40 MG VIAL IVP SCH (05:39)
[2017-04-20] MEDS: MethylPREDNISolone 40 MG/ML VIAL IVP SCH (05:39)
[2017-04-20 05:55] LABS: INR 1.1
[2017-04-20 05:59] LABS: Activated Partial Thrombo Time 66.8 Seconds (26.0-36.0)
--- NOTE | 2017-04-20 07:16 | Pulmonology Progress Note ---
<Daysi Palafox - Last Filed: 04/20/17 10:42> Date of Encounter: 04/20/17 Time of Encounter: 07:15 Assessment and Plan (1) Acute and chronic respiratory failure with hypercapnia Current Visit: Yes Status: Acute Cardiac arrest 04/16/2017 just prior to arrival likely secondary to COPD flare in the setting of medical comorbidities. -Patient's GCS 9, therefore no cooling per protocol. -Possible acute exacerbation of COPD and likely cardiogenic pulmonary edema. Vent adjusted by Dr. Browne. -Patient respiratory status improving. -Dual nebs, Stop IV steroids today (04/20) after 5 doses, DC cefepime today ( started 04/16, DC today 04/20). (DC'd vanc 04/17 after 1 dose) (DC's flagyl after 3 completed doses). -Follow-up ABGs closely. -04/18- Lactic acid stable over the last 12 hours at 1.8. -ABG pH 7.40, CO2 7, PO2 74, bicarbonate 30. Decreased respiratory rate 18. -04/20- CPAP since 6am. Plan for extubation this morning. -sputum culture finalized- normal respiratory claritza. -Patient successfully extubated at 0947AM. Currently on Bipap 16/8, FiO2 50%. (2) Non-STEMI (non-ST elevated myocardial infarction) Current Visit: Yes Status: Acute Patient status post cardiac arrest thought to be a PDA as did not receive any shocks. This appears to be due to an NSTEMI as troponins peaked at 44. Trending downwards. -Cardiology following. -Echocardiogram on April 16 shows preserved ejection fraction of 55-60%. -Patient's blood pressure have been stable, no evidence of cardiogenic shock. -Continue beta madeleine, statin, aspirin, plavix. -Heparin drip discontinued on 04/17 as patient developed bleeding from his OG tube, restarted 04/18. -Patient for left heart catheterization once able. -Patient INR below 1.5 on 04/19, patient went to endoscopy. (3) Gnqlw-ij-jkgbghy kidney injury Current Visit: Yes Status: Acute Patient oliguric with slight improvement in creatinine. Creatinine 3.81 today down from 4.28 yesterday. Likely ATN secondary to hypotension during cardiac arrest. -Patient remains oliguric. -Hemodialysis today -Continue to follow nephrology recommendations. Qualifiers: Acute renal failure type: unspecified Chronic kidney disease stage: unspecified stage Qualified Code(s): N17.9 - Acute kidney failure, unspecified ; N18.9 - Chronic kidney disease, unspecified; N18.9 - Chronic kidney disease, unspecified (4) Coffee ground emesis Current Visit: Yes Status: Acute Patient developed red bloody appearing fluid output from his OG tube 04/17. No longer visualized. -GI took to endoscopy on 04/19, esophagitis found with a few polyps in stomach. -PPI protonix BID. -2 units of FFP and 3 doses of 5mg vitamin K given. (5) Anemia Current Visit: Yes Status: Chronic Patient's hemoglobin 7.2 on admission and 8.3 this morning. -Anemia likely chronic at baseline. -Patient has received 3 units of packed red blood cells since admission. -We will continue to transfuse for possible ACS with goal hemoglobin around 9. Qualifiers: Anemia type: iron deficiency Iron deficiency anemia type: unspecified iron deficiency Qualified Code(s): D50.9 - Iron deficiency anemia, unspecified (6) COPD (chronic obstructive pulmonary disease) Current Visit: Yes Status: Inactive Continue duonebs and steroids. Qualifiers: COPD type: unspecified COPD Qualified Code(s): J44.9 - Chronic obstructive pulmonary disease, unspecified (7) Pneumonia Current Visit: No Status: Resolved CXR 04/16- suspected right PE with increasing right basilar atelectasis or PNA. Improving pulmonary edema -Superimposed PNA -Vancomycin discontinued 04/17 to decrease renal insult. -Flagyl discontinued on April 18. -Cefepime day 5 Qualifiers: Pneumonia type: due to unspecified organism Laterality: bilateral Lung location: unspecified part of lung Qualified Code(s): J18.9 - Pneumonia, unspecified organism (8) CHF (congestive heart failure) Current Visit: Yes Status: Acute CXR with improving pulmonary edema. Also, suspected right pleural effusion with increasing right basilar atelectasis or pneumonia. - Echo on 04/16 LVEF 55-60%. -suspect diastolic dysfunction or new onset systolic dysfunction. -Await cardiology recommendations. -Low-dose heparin drip discontinued 04/17 secondary to coffee-ground emesis per OG tube, restarted 04/18. -Asprin 325 through OG tube, bb, statin. Qualifiers: Congestive heart failure type: diastolic Congestive heart failure chronicity: unspecified congestive heart failure chronicity Qualified Code(s) : I50.30 - Unspecified diastolic (congestive) heart failure (9) Pulmonary edema Current Visit: Yes Status: Acute CXR with improving pulmonary edema. Also, suspected right pleural effusion with increasing right basilar atelectasis or pneumonia. Patient with elevated lactic acid likely from ischemia. Less likely sepsis as patient without tachycardia, tachypnea, leukocytosis or bandemia. -providing antibiotic coverage for PNA. Qualifiers: Chronicity: acute Qualified Code(s): J81.0 - Acute pulmonary edema (10) Cardiac arrest Current Visit: Yes Status: Acute Patient s/p cardiac arrest en route to [facility] ED x2 receiving two rounds of CPR, epinepherine, and 2 amps of sodium bicarbonate. -Patient still acidotic when arrived on ICU. -1 L of bicarbonate infused initially. -04/20- Ph normal, continue to monitor closely. (11) History of CVA (cerebrovascular accident) without residual deficits Current Visit: Yes Status: Acute Per review of medical record, patient does have past medical history of CVA, however, it is unclear at what point in time. Per family, patient has no residual deficits from his CVA. (12) Coronary artery disease Current Visit: Yes Status: Chronic Patient with a history of CAB[place] [address] Chu. -Continue medical management. Qualifiers: Coronary Disease-Associated Artery/Lesion type: [place] artery [place] vs. transplanted heart: [place] heart Associated angina: angina presence unspecified Qualified Code(s): I25.10 - Atherosclerotic heart disease of [place] coronary artery without angina pectoris (13) DVT prophylaxis Current Visit: Yes Status: Acute Heparin drip for ACS protocol -EPCDs -Pantaprozole BID Subjective Principal diagnosis: NSTEMI, cardiopulmonary arrest Interval history: 81-year-old male with coronary artery disease status post CABG, CVA, PVD, diabetes mellitus type 2, hypertension, COPD on 3 liters nasal cannula at home, bilateral lower extremity weakness, and CHF presented to [facility] on 04-17-2017 s/p cardiac arrest and renal failure. Patient with minimal urinary output overnight, he remains oliguric. Had 3 liters removed during dialysis yesterday. Scheduled for HD today. CPAP since 6am. Extubation this morning. Patient expressed desire to have code status changed to DNR-CCA/DNI prior to extubation. Objective PUL Vital signs: Last Vital Signs Temp 98.6 F 04/20/17 04:00 Pulse 72 04/20/17 06:01 Resp 13 04/20/17 06:02 BP 126/35 04/20/17 06:02 Pulse Ox 91 04/20/17 06:02 General appearance: no acute distress, other (sedated and intubated, but able to awake and follow commands as well as respond to questions. ) Eyes: nonicteric ENT: oropharynx dry Auscultation: bilateral: rales Cardiovascular: regular rate and rhythm Gastrointestinal: normoactive bowel sounds, soft, non-tender, non-distended Integumentary: normal Extremities: no cyanosis, no edema (bilateral lower extremities), edema ( bilateral upper extremities) Musculoskeletal: no deformities normal mental status, non-focal exam (patient with bilaterally equal strength in upper and lower extremites. ) Ventilator Settings Ventilator Settings: Ventilator Settings, Last 8 Hours Ventilator Mode CPAP Ventilator Mode CPAP Ventilator Mode VC+ Ventilator Mode VC+ Ventilator Mode VC+ Ventilator Mode VC+ Ventilator Mode VC+ Ventilator Mode VC+ Ventilator Mode VC+ Ventilator Mode VC+ Ventilator Mode VC+ Ventilator Tidal Volume 500 Setting Ventilator Tidal Volume 500 Setting Ventilator Tidal Volume 500 Setting Ventilator Tidal Volume 500 Setting Ventilator Tidal Volume 500 Setting Ventilator Tidal Volume 500 Setting Ventilator Tidal Volume 500 Setting Ventilator Tidal Volume 500 Setting Ventilator Tidal Volume 500 Setting Ventilator Tidal Volume 500 Setting Ventilator Respiratory Rate 16 Setting Ventilator Respiratory Rate 16 Setting Ventilator Respiratory Rate 16 Setting Ventilator Respiratory Rate 16 Setting Ventilator Respiratory Rate 16 Setting Ventilator Respiratory Rate 16 Setting Ventilator Respiratory Rate 16 Setting Ventilator Respiratory Rate 16 Setting Ventilator Respiratory Rate 16 Setting Actual Respiratory Rate 13 Actual Respiratory Rate 20 Actual Respiratory Rate 24 Actual Respiratory Rate 25 Actual Respiratory Rate 20 Actual Respiratory Rate 18 Actual Respiratory Rate 21 Actual Respiratory Rate 21 Actual Respiratory Rate 19 Actual Respiratory Rate 16 Actual Respiratory Rate 16 Positive End Expiratory 5 Pressure Positive End Expiratory 5 Pressure Positive End Expiratory 5 Pressure Positive End Expiratory 5 Pressure Positive End Expiratory 5 Pressure Positive End Expiratory 6 Pressure Positive End Expiratory 6 Pressure Positive End Expiratory 6 Pressure Positive End Expiratory 7 Pressure Positive End Expiratory 7 Pressure Positive End Expiratory 7 Pressure Peak Inspiratory Airway 12 Pressure Peak Inspiratory Airway 23 Pressure Peak Inspiratory Airway 22 Pressure Peak Inspiratory Airway 25 Pressure Peak Inspiratory Airway 24 Pressure Peak Inspiratory Airway 19 Pressure Peak Inspiratory Airway 23 Pressure Peak Inspiratory Airway 23 Pressure Peak Inspiratory Airway 24 Pressure Peak Inspiratory Airway 23 Pressure Results - Laboratory Findings CBC and BMP: 04/20/17 05:32 04/20/17 05:32 ABG ABG pH 7.39 pH Units (7.32-7.45) 04/20/17 03:44 ABG pCO2 51 mmHg (35-45) H 04/20/17 03:44 ABG pO2 64 mmHg (85-104) L 04/20/17 03:44 ABG O2 Saturation 91 % (95-98) L 04/20/17 03:44 PT/INR, D-dimer PT 12.0 Seconds (9.4-12.1) 04/20/17 05:32 Abnormal lab findings: Abnormal lab results RBC 3.43 M/mcL (4.19-5.50) L 04/19/17 16:43 Hgb 8.9 g/dL (12.9-16.9) L 04/19/17 16:43 Hct 28.1 % (37.5-50.1) L 04/19/17 16:43 MCV 81.9 fL (83.0-100.0) L 04/19/17 16:43 MCH 25.9 pg (28.0-33.3) L 04/19/17 16:43 RDW 17.1 % (11.5-14.5) H 04/19/17 16:43 Neutrophils # 9.2 K/mcL (1.6-8.9) H 04/19/17 05:15 Nucleated RBCs/100 WBC 0.3 /100 WBC (0) H 04/19/17 05:15 APTT 66.8 Seconds (26.0-36.0) H D 04/20/17 05:32 ABG pCO2 51 mmHg (35-45) H 04/20/17 03:44 ABG pO2 64 mmHg (85-104) L 04/20/17 03:44 ABG HCO3 31 mEq/L (21-27) H 04/20/17 03:44 ABG Total CO2 32 mEq/L (20-26) H 04/20/17 03:44 ABG O2 Saturation 91 % (95-98) L 04/20/17 03:44 ABG Base Excess 5 mEq/L (-2 to 3) H 04/20/17 03:44 VBG pH 7.24 pH Units (7.32-7.42) L 04/17/17 10:00 VBG pCO2 62 mmHg (41-51) H 04/17/17 10:00 BUN 54 mg/dL (8-26) H 04/19/17 05:15 Creatinine 4.28 mg/dL (0.72-1.25) H 04/19/17 05:15 Est GFR ( Amer) 16 (> 60) L 04/19/17 05:15 Est GFR (Non-Af Amer) 13 (> 60) L 04/19/17 05:15 Glucose 249 mg/dL (70-99) H 04/19/17 05:15 POC Glucose 287 (58-89) H 04/20/17 04:10 Calculated Osmolality 307 (280-300) H 04/19/17 05:15 Uric Acid 10.0 mg/dL (3.5-7.2) H 04/16/17 13:25 Calcium 7.6 mg/dL (8.6-10.8) L 04/19/17 05:15 AST 43 Units/L (5-34) H 04/18/17 04:45 Creatine Kinase 361 Units/L (30-200) H 04/17/17 14:50 Troponin I 9.60 ng/mL (0-0.03) H* 04/17/17 23:25 B-Natriuretic Peptide 1199 pg/mL (0-100) H 04/16/17 13:25 Albumin 2.3 g/dL (3.5-5.0) L 04/18/17 04:45 Globulin 3.8 g/dL (2.4-3.5) H 04/18/17 04:45 Albumin/Globulin Ratio 0.6 (1.1-2.2) L 04/18/17 04:45 Urine Clarity Turbid (Clear) A 04/17/17 06:37 Ur Specific [place] 1.026 (1.010-1.025) H 04/17/17 06:37 Urine Protein 100 mg/dL (Neg-Trace) H 04/17/17 06:37 Urine Glucose (UA) 100 mg/dL (Normal) H 04/17/17 06:37 Urine Ketones Trace mg/dL (Negative) H 04/17/17 06:37 Urine Blood Large (Negative) H 04/17/17 06:37 Urine Bilirubin Small (Negative) H 04/17/17 06:37 Ur Leukocyte Esterase Small (Negative) H 04/17/17 06:37 - Microbiology Findings Microbiology Findings: Microbiology, Last 48 Hours 04/16/17 21:40 Sputum Culture - Final Sputum 04/16/17 18:34 Blood Culture - Preliminary Peripheral Central Cath, Picc No growth. 04/16/17 16:31 Blood Culture - Preliminary Peripheral Venipuncture No growth. - Clinical Findings Intake & Output: Intake & Output 04/19/17 04/19/17 04/20/17 15:59 23:59 07:59 Intake Total 1281 / 1281 1331 / 1331 1208 / 1208 Output Total 3725 / 3725 50 / 50 75 / 75 Balance -2444 / -2444 1281 / 1281 1133 / 1133 - VTE Documentation of Mechanical Device: Intermittent pneumatic compression device Consult Discharge Plan - Plan Referrals: Priyank Guajardo MD [Primary Care Provider] - <Marvin Noonan - Last Filed: 04/20/17 11:51> Date of Encounter: 04/20/17 Assessment and Plan (1) Acute and chronic respiratory failure with hypercapnia Current Visit: Yes Status: Acute (2) Acute exacerbation of chronic obstructive airways disease Current Visit: No Status: Acute (3) Anemia Current Visit: Yes Status: Chronic Qualifiers: Anemia type: iron deficiency Iron deficiency anemia type: unspecified iron deficiency Qualified Code(s): D50.9 - Iron deficiency anemia, unspecified (4) Heart failure, diastolic Current Visit: No Status: Chronic Qualifiers: Heart failure chronicity: acute on chronic Qualified Code(s): I50.33 - Acute on chronic diastolic (congestive) heart failure (5) Lizvi-ea-plivvlr kidney injury Current Visit: Yes Status: Acute Qualifiers: Acute renal failure type: unspecified Chronic kidney disease stage: unspecified stage Qualified Code(s): N17.9 - Acute kidney failure, unspecified ; N18.9 - Chronic kidney disease, unspecified; N18.9 - Chronic kidney disease, unspecified (6) Non-STEMI (non-ST elevated myocardial infarction) Current Visit: Yes Status: Acute (7) UGI bleed Current Visit: Yes Status: Acute Objective PUL Vital signs: Last Vital Signs Temp 98.4 F 04/20/17 07:34 Pulse 81 12/07/17 09:00 Resp 20 04/20/17 09:00 BP 100/50 04/20/17 09:00 Pulse Ox 92 04/20/17 09:00 Ventilator Settings Ventilator Settings: Ventilator Settings, Last 8 Hours Ventilator Mode CPAP Ventilator Mode CPAP Ventilator Mode CPAP Ventilator Mode CPAP Ventilator Mode CPAP Ventilator Mode CPAP Ventilator Mode VC+ Ventilator Mode VC+ Ventilator Mode VC+ Ventilator Mode VC+ Ventilator Mode VC+ Ventilator Mode VC+ Ventilator Tidal Volume 500 Setting Ventilator Tidal Volume 500 Setting Ventilator Tidal Volume 500 Setting Ventilator Tidal Volume 500 Setting Ventilator Tidal Volume 500 Setting Ventilator Tidal Volume 500 Setting Ventilator Tidal Volume 500 Setting Ventilator Tidal Volume 500 Setting Ventilator Tidal Volume 500 Setting Ventilator Tidal Volume 500 Setting Ventilator Respiratory Rate 16 Setting Ventilator Respiratory Rate 16 Setting Ventilator Respiratory Rate 16 Setting Ventilator Respiratory Rate 16 Setting Ventilator Respiratory Rate 16 Setting Ventilator Respiratory Rate 16 Setting Actual Respiratory Rate 14 Actual Respiratory Rate 14 Actual Respiratory Rate 13 Actual Respiratory Rate 20 Actual Respiratory Rate 24 Actual Respiratory Rate 25 Actual Respiratory Rate 20 Actual Respiratory Rate 18 Actual Respiratory Rate 21 Actual Respiratory Rate 21 Positive End Expiratory 5 Pressure Positive End Expiratory 5 Pressure Positive End Expiratory 5 Pressure Positive End Expiratory 5 Pressure Positive End Expiratory 5 Pressure Positive End Expiratory 5 Pressure Positive End Expiratory 5 Pressure Positive End Expiratory 5 Pressure Positive End Expiratory 5 Pressure Positive End Expiratory 6 Pressure Positive End Expiratory 6 Pressure Positive End Expiratory 6 Pressure Peak Inspiratory Airway 23 Pressure Peak Inspiratory Airway 12 Pressure Peak Inspiratory Airway 23 Pressure Peak Inspiratory Airway 22 Pressure Peak Inspiratory Airway 25 Pressure Peak Inspiratory Airway 24 Pressure Peak Inspiratory Airway 19 Pressure Peak Inspiratory Airway 23 Pressure Results - Laboratory Findings CBC and BMP: 04/20/17 05:32 04/20/17 05:32 ABG ABG pH 7.39 pH Units (7.32-7.45) 04/20/17 03:44 ABG pCO2 51 mmHg (35-45) H 04/20/17 03:44 ABG pO2 64 mmHg (85-104) L 04/20/17 03:44 ABG O2 Saturation 91 % (95-98) L 04/20/17 03:44 PT/INR, D-dimer PT 12.0 Seconds (9.4-12.1) 04/20/17 05:32 Abnormal lab findings: Abnormal lab results RBC 3.20 M/mcL (4.19-5.50) L 04/20/17 05:32 Hgb 8.3 g/dL (12.9-16.9) L 04/20/17 05:32 Hct 26.4 % (37.5-50.1) L 04/20/17 05:32 MCV 82.5 fL (83.0-100.0) L 04/20/17 05:32 MCH 25.9 pg (28.0-33.3) L 04/20/17 05:32 MCHC 31.4 g/dL (31.6-35.5) L 04/20/17 05:32 RDW 17.0 % (11.5-14.5) H 04/20/17 05:32 Nucleated RBCs/100 WBC 0.3 /100 WBC (0) H 04/19/17 05:15 APTT 66.8 Seconds (26.0-36.0) H D 04/20/17 05:32 ABG pCO2 51 mmHg (35-45) H 04/20/17 03:44 ABG pO2 64 mmHg (85-104) L 04/20/17 03:44 ABG HCO3 31 mEq/L (21-27) H 04/20/17 03:44 ABG Total CO2 32 mEq/L (20-26) H 04/20/17 03:44 ABG O2 Saturation 91 % (95-98) L 04/20/17 03:44 ABG Base Excess 5 mEq/L (-2 to 3) H 04/20/17 03:44 VBG pH 7.24 pH Units (7.32-7.42) L 04/17/17 10:00 VBG pCO2 62 mmHg (41-51) H 04/17/17 10:00 BUN 47 mg/dL (8-26) H 04/20/17 05:32 Creatinine 3.81 mg/dL (0.72-1.25) H 04/20/17 05:32 Est GFR ( Amer) 19 (> 60) L 04/20/17 05:32 Est GFR (Non-Af Amer) 15 (> 60) L 04/20/17 05:32 Glucose 235 mg/dL (70-99) H 04/20/17 05:32 POC Glucose 212 (58-89) H 04/20/17 07:13 Calculated Osmolality 308 (280-300) H 04/20/17 05:32 Uric Acid 10.0 mg/dL (3.5-7.2) H 04/16/17 13:25 Calcium 7.8 mg/dL (8.6-10.8) L 04/20/17 05:32 AST 43 Units/L (5-34) H 04/18/17 04:45 Creatine Kinase 361 Units/L (30-200) H 04/17/17 14:50 Troponin I 9.60 ng/mL (0-0.03) H* 04/17/17 23:25 B-Natriuretic Peptide 1199 pg/mL (0-100) H 04/16/17 13:25 Albumin 2.3 g/dL (3.5-5.0) L 04/18/17 04:45 Globulin 3.8 g/dL (2.4-3.5) H 04/18/17 04:45 Albumin/Globulin Ratio 0.6 (1.1-2.2) L 04/18/17 04:45 Urine Clarity Turbid (Clear) A 04/17/17 06:37 Ur Specific [place] 1.026 (1.010-1.025) H 04/17/17 06:37 Urine Protein 100 mg/dL (Neg-Trace) H 04/17/17 06:37 Urine Glucose (UA) 100 mg/dL (Normal) H 04/17/17 06:37 Urine Ketones Trace mg/dL (Negative) H 04/17/17 06:37 Urine Blood Large (Negative) H 04/17/17 06:37 Urine Bilirubin Small (Negative) H 04/17/17 06:37 Ur Leukocyte Esterase Small (Negative) H 04/17/17 06:37 - Microbiology Findings Microbiology Findings: Microbiology, Last 48 Hours 04/16/17 21:40 Sputum Culture - Final Sputum 04/16/17 18:34 Blood Culture - Preliminary Peripheral Central Cath, Picc No growth. 04/16/17 16:31 Blood Culture - Preliminary Peripheral Venipuncture No growth. - Clinical Findings Intake & Output: Intake & Output 04/19/17 04/20/17 04/20/17 23:59 07:59 15:59 Intake Total 1331 / 1331 1208 / 1208 102 / 102 Output Total 50 / 50 125 / 125 Balance 1281 / 1281 1083 / 1083 102 / 102 - Attending Attestation I examined this patient and my medical decision-making was reviewed with the Resident Physician. I agree with the documented findings, disposition and treatment plan as described except to the extent set forth below. We independently had [id number] contact with the patient Patient seen and examined at bedside Labs, radiology, chart personally reviewed. Management was reviewed during multidisciplinary critical care rounds. 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 Pulm: Acute/Chronic Resp Failure liberated from vent to Biapap. AECOPD stop steroids cont BDs. BETTINA suspected cont PAP therapy at night after acute need for respiratory failure Cards: s/p Cardiac Arrest s/t ?ACS Cardiology consulted. Plan for C cont DAPT , Heparin, statin BB FEN-GI: NPO until bedside s/s. Emesis today before extubation that resolved. Advance Bowel regmine check KUB. 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 Lines: All lines examined without evidence of infection : Dispo: Transfer to CODE: DNAR/DNI. I have had several conversations with the healthcare proxy is his 2 adult children and his 2 sisters who are all in agreement that he would not want reintubation I discussed this with the patient who still is mildly delirious but he also expressed through nodding his head that he would not want the endotracheal tube replaced even in the event of respiratory failure postextubation CODE STATUS changed to reflect this.
[2017-04-20 08:07] LABS: Hematocrit 26.4 % (37.5-50.1); Hemoglobin 8.3 g/dL (12.9-16.9); Immature Granulocytes % 0.6 % (0-4); Lymphocytes # 0.8 K/mcL (0.6-4.6); Lymphocytes % 9.5 %; Mean Corpuscular HGB Conc 31.4 g/dL (31.6-35.5); Mean Corpuscular Hemoglobin 25.9 pg (28.0-33.3); Mean Corpuscular Volume 82.5 fL (83.0-100.0); Mean Platelet Volume 11.8 fL (9.4-12.4); Monocytes # 0.6 K/mcL (0.0-1.3); Monocytes % 7.2 %; Neutrophils # 6.8 K/mcL (1.6-8.9); Platelet Count 192 K/mcL (140-400); Segmented Neutrophils % 82.7 %
[2017-04-20] MEDS: Aspirin 81 MG TAB.CHEW PO SCH (08:10)
[2017-04-20] MEDS: Chlorhexidine Rinse 15 ML MOUTHWASH MM SCH ×2 (08:10→20:41)
[2017-04-20] MEDS: Docusate Oral Soln 100 MG/10 ML UDC GTUBE SCH ×2 (08:10→20:47)
[2017-04-20 08:14] LABS: Calcium 7.8 mg/dL (8.6-10.8); Magnesium 1.9 mg/dL (1.6-2.6); Phosphorous 4.5 mg/dL (2.3-4.7); Potassium 3.8 mEq/L (3.5-4.5)
[2017-04-20] MEDS ORDERED: Ondansetron 4 MG/2 ML VIAL IVP PRN (08:54)
--- NOTE | 2017-04-20 08:55 | Nephrology Progress Note ---
Date of Encounter: 04/20/17 Time of Encounter: 08:30 - Assessment and Plan (1) VAHID (acute kidney injury) Current Visit: Yes Status: Acute VAHID/CKD. Remains oliguric, no signs of renal recovery. Will not dialyze today. K 3.8, with intention of dialyzing tomorrow. Subjective Principal diagnosis: NSTEMI, cardiopulmonary arrest Interval history: Awake, intubated. Sisiters at bedside. State he is going to be extubated with no intention of reintubation in future. Objective - Vital Signs Vital signs: Vital Signs Temp Pulse Resp BP Pulse Ox 04/20/17 08:00 76 24 114/49 94 04/20/17 07:47 86 04/20/17 07:41 15 117/36 94 04/20/17 07:34 98.4 F 04/20/17 07:00 79 14 110/45 94 04/20/17 06:02 13 126/35 91 04/20/17 06:01 72 20 126/35 90 04/20/17 05:00 77 24 135/42 91 04/20/17 04:05 25 93 04/20/17 04:00 98.6 F 86 20 141/39 91 04/20/17 03:00 81 18 145/43 93 04/20/17 02:00 80 21 140/46 95 04/20/17 01:59 21 133/43 93 04/20/17 01:00 81 19 136/41 94 04/20/17 00:00 99.1 F 76 16 163/63 91 04/19/17 23:32 16 91 04/19/17 23:00 83 18 96/38 88 04/19/17 22:00 76 19 95/28 90 04/19/17 21:36 22 91 04/19/17 21:00 80 18 94/39 90 04/19/17 20:00 82 17 101/34 92 04/19/17 19:50 100.6 F H 04/19/17 19:42 19 92 04/19/17 19:00 74 18 93/29 92 04/19/17 18:00 78 22 101/40 93 04/19/17 17:16 17 102/37 93 04/19/17 17:00 80 16 102/37 94 04/19/17 16:00 73 18 102/34 97 04/19/17 15:55 99.4 F 21 105/61 04/19/17 15:45 99.4 F 100/60 04/19/17 15:30 125/41 04/19/17 15:23 19 114/30 97 04/19/17 15:15 109/33 04/19/17 15:00 77 19 111/32 98 04/19/17 14:45 104/42 04/19/17 14:15 109/34 04/19/17 14:00 75 20 93/36 95 04/19/17 13:50 21 105/30 97 04/19/17 13:45 114/41 04/19/17 13:30 116/37 04/19/17 13:15 115/34 04/19/17 13:00 71 18 110/36 96 04/19/17 12:45 112/32 04/19/17 12:30 114/39 04/19/17 12:15 109/36 04/19/17 12:00 71 19 115/36 96 04/19/17 11:56 100.0 F H 04/19/17 11:45 100.0 F H 15 132/37 04/19/17 11:30 73 04/19/17 11:07 18 128/38 95 04/19/17 11:00 73 16 128/38 96 04/19/17 10:00 72 18 131/43 97 04/19/17 09:45 17 131/43 96 04/19/17 09:00 98.9 F 77 24 140/41 95 Intake and Output 04/19/17 04/20/17 04/20/17 23:59 07:59 15:59 Intake Total 1331 / 1331 1208 / 1208 102 / 102 Output Total 50 / 50 125 / 125 Balance 1281 / 1281 1083 / 1083 102 / 102 Intake: IV Fluids 735 / 735 610 / 610 102 / 102 PRECEDEX Premix 400 mcg In 100 100 / 100 100 / 100 81 / 81 ml @ 0.2 MCG/KG/HR 6.152 mls/hr IVC .[id number] [facility] Rx#: [id number] FentaNYL (PF) 3,000 MCG In 0.9 300 / 300 21 / 21 % Sodium Chloride 240 ML @ 50 MCG/HR 5 mls/hr IVC CONT [facility] Rx #:[id number] Heparin 25,000 UNIT/500 ML D5W 135 / 135 190 / 190 25,000 unit In 500 ml @ 8.2 UNIT/KG/HR 20.177 mls/hr IVC . Q24H [facility] Rx#:[id number] Maxipime 2,000 MG In Water for 20 / 20 inj. (sterile) 20 ML @ 300 mls/ hr IVP Q24H [facility] Rx#:[id number] ALBURX 5% 12.5 gm In 250 ml @ 500 / 500 120 mls/hr IVPB Q2HR [facility] Rx#: [id number] Tube Feeding 596 / 596 598 / 598 Output: Catheter 50 / 50 125 / 125 Other: Blood Glucose* 275 212 - General Appearance General appearance: Present: well-developed, well-nourished, appears started age EENT: Present: mucous membranes moist Neck: Present: no JVD Respiratory: Present: clear Cardiology: Present: edema, regular rate, regular rhythm Additional Comments: generalized Gastrointestinal: Present: normoactive bowel sounds, no guarding Integumentary: Present: warm and dry Psychiatric: Present: mood/affect appropriate, cooperative - Lab 04/20/17 05:32 04/20/17 05:32 Most recent lab results ABG pH 7.39 pH Units (7.32-7.45) 04/20/17 03:44 ABG pCO2 51 mmHg (35-45) H 04/20/17 03:44 ABG pO2 64 mmHg (85-104) L 04/20/17 03:44 ABG HCO3 31 mEq/L (21-27) H 04/20/17 03:44 ABG O2 Saturation 91 % (95-98) L 04/20/17 03:44 Calcium 7.8 mg/dL (8.6-10.8) L 04/20/17 05:32 Phosphorus 4.5 mg/dL (2.3-4.7) 04/20/17 05:32 Magnesium 1.9 mg/dL (1.6-2.6) 04/20/17 05:32 - VTE Documentation of Mechanical Device: Intermittent pneumatic compression device Consult Discharge Plan - Plan Referrals: Priyank Guajardo MD [Primary Care Provider] -
[2017-04-20] MEDS ORDERED: Bisacodyl 10 MG RECTAL SUPPOSITORY RC SCH (10:30)
--- NOTE | 2017-04-20 11:16 | Electrocardiograph Report ---
[address] [place], [place] [address] Test Date: 2017-04-15 Pat Name: Adam Guernsey Department: [id number] Room: [facility] Gender: M Host Coordinator: [id number] : [id number] Requested By: Reinaldo Castillo Order Number: [id number] Reading MD: Patricio Costa Measurements Intervals [place] Rate: 120 P: 25 NE: 237 QRS: -38 QRSD: 158 T: 125 QT: 370 QTc: 442 Interpretive Statements IDIOVENTRICULAR RHYTHM Electronically Signed On 04-20-2017 11:15:10 EST by Patricio Costa
[2017-04-20] MEDS ORDERED: *HR* Dextrose 50 % in Water (Syg) 50 ML SYRINGE IVP PRN (11:44)
[2017-04-20] MEDS ORDERED: Ipratropium/Albuterol Neb 3 ML IH PRN (11:44)
[2017-04-20] MEDS ORDERED: *HR* Heparin 5,000 UNIT/ML VIAL IVP PRN ×2 (11:44)
[2017-04-20] MEDS ORDERED: *HR* Heparin 10,000 UNIT/10 ML VIAL IV PRN ×2 (11:44)
[2017-04-20] MEDS ORDERED: Dextrose Gel 15 GM PO PRN ×2 (11:44)
[2017-04-20] MEDS ORDERED: Naloxone 0.4 MG/ML INJ IVP PRN (11:44)
[2017-04-20] MEDS ORDERED: 0.9 % Sodium Chloride 250 ML IVC PRN (11:44)
[2017-04-20] MEDS ORDERED: D5% in Water 1,000 ML IVC PRN (11:44)
[2017-04-20] MEDS ORDERED: Albumin 25% 25gram/100mL 25 GM/100 ML IV.SOLN IVPB SCH (11:44)
[2017-04-20] MEDS: Heparin 25,000 UNIT/500 ML D5W 25,000 UNIT/500 ML BAG IVC SCH (11:58)
[2017-04-20] MEDS ORDERED: Bisacodyl 10 MG RECTAL SUPPOSITORY RC ONE (15:00)
[2017-04-20] MEDS: Ondansetron 4 MG/2 ML VIAL IVP PRN (19:16)
[2017-04-21] MEDS: Ipratropium/Albuterol Neb 3 ML IH SCH ×6 (00:49→20:12)
[2017-04-21] MEDS: Ondansetron 4 MG/2 ML VIAL IVP PRN (03:36)
[2017-04-21] MEDS: Insulin LISPRO 300 UNITS/3 ML VIAL SQ SCH ×5 (05:02→19:54)
[2017-04-21 05:14] LABS: INR 1.1; Prothrombin Time 12.2 Seconds (9.4-12.1)
[2017-04-21 05:17] LABS: Activated Partial Thrombo Time 77.5 Seconds (26.0-36.0)
[2017-04-21 05:22] LABS: Basophils % 0.1 %; Eosinophils # 0.1 K/mcL (0.0-0.6); Eosinophils % 0.7 %; Hematocrit 28.6 % (37.5-50.1); Hemoglobin 8.7 g/dL (12.9-16.9); Immature Granulocytes % 1.5 % (0-4); Lymphocytes % 8.8 %; Mean Corpuscular HGB Conc 30.4 g/dL (31.6-35.5); Mean Corpuscular Hemoglobin 25.3 pg (28.0-33.3); Mean Corpuscular Volume 83.1 fL (83.0-100.0); Mean Platelet Volume 10.9 fL (9.4-12.4); Monocytes # 1.2 K/mcL (0.0-1.3); Monocytes % 10.2 %; Nucleated Red Blood Cells 0.2 /100 WBC (0); Platelet Count 253 K/mcL (140-400); Red Blood Count 3.44 M/mcL (4.19-5.50); Red Cell Distribution Width 17.3 % (11.5-14.5); Segmented Neutrophils % 78.7 %
[2017-04-21 05:51] LABS: Calcium 7.8 mg/dL (8.6-10.8); Magnesium 1.9 mg/dL (1.6-2.6); Phosphorous 6.7 mg/dL (2.3-4.7); Potassium 4.1 mEq/L (3.5-4.5)
[2017-04-21] MEDS: Heparin 25,000 UNIT/500 ML D5W 25,000 UNIT/500 ML BAG IVC SCH ×2 (06:04→19:46)
[2017-04-21] MEDS: Pantoprazole 40 MG VIAL IVP SCH ×2 (08:36→08:37)
[2017-04-21] MEDS: Chlorhexidine Rinse 15 ML MOUTHWASH MM SCH ×2 (08:37→19:53)
--- NOTE | 2017-04-21 08:51 | Pulmonology Progress Note ---
<Marvin Noonan W - Last Filed: 04/21/17 09:16> Date of Encounter: 04/21/17 Assessment and Plan (1) Acute and chronic respiratory failure with hypercapnia Current Visit: Yes Status: Acute (2) Acute exacerbation of chronic obstructive airways disease Current Visit: No Status: Acute (3) Anemia Current Visit: Yes Status: Chronic Qualifiers: Anemia type: iron deficiency Iron deficiency anemia type: unspecified iron deficiency Qualified Code(s): D50.9 - Iron deficiency anemia, unspecified (4) Heart failure, diastolic Current Visit: No Status: Chronic Qualifiers: Heart failure chronicity: acute on chronic Qualified Code(s): I50.33 - Acute on chronic diastolic (congestive) heart failure (5) Vcwnu-pp-xdeejrl kidney injury Current Visit: Yes Status: Acute Qualifiers: Acute renal failure type: unspecified Chronic kidney disease stage: unspecified stage Qualified Code(s): N17.9 - Acute kidney failure, unspecified ; N18.9 - Chronic kidney disease, unspecified; N18.9 - Chronic kidney disease, unspecified (6) Non-STEMI (non-ST elevated myocardial infarction) Current Visit: Yes Status: Acute (7) UGI bleed Current Visit: Yes Status: Acute Objective PUL Vital signs: Last Vital Signs Temp 97.5 F L 04/21/17 07:38 Pulse 86 04/21/17 08:19 Resp 19 04/21/17 08:19 BP 139/38 04/21/17 08:19 Pulse Ox 95 04/21/17 08:19 Results - Laboratory Findings CBC and BMP: 04/21/17 04:47 04/21/17 04:47 ABG ABG pH 7.39 pH Units (7.32-7.45) 04/20/17 03:44 ABG pCO2 51 mmHg (35-45) H 04/20/17 03:44 ABG pO2 64 mmHg (85-104) L 04/20/17 03:44 ABG O2 Saturation 91 % (95-98) L 04/20/17 03:44 PT/INR, D-dimer PT 12.2 Seconds (9.4-12.1) H 04/21/17 04:47 Abnormal lab findings: Abnormal lab results WBC 11.4 K/mcL (4.3-11.1) H 04/21/17 04:47 RBC 3.44 M/mcL (4.19-5.50) L 04/21/17 04:47 Hgb 8.7 g/dL (12.9-16.9) L 04/21/17 04:47 Hct 28.6 % (37.5-50.1) L 04/21/17 04:47 MCH 25.3 pg (28.0-33.3) L 04/21/17 04:47 MCHC 30.4 g/dL (31.6-35.5) L 04/21/17 04:47 RDW 17.3 % (11.5-14.5) H 04/21/17 04:47 Neutrophils # 9.0 K/mcL (1.6-8.9) H 04/21/17 04:47 Nucleated RBCs/100 WBC 0.2 /100 WBC (0) H 04/21/17 04:47 PT 12.2 Seconds (9.4-12.1) H 04/21/17 04:47 APTT 77.5 Seconds (26.0-36.0) H 04/21/17 04:47 ABG pCO2 51 mmHg (35-45) H 04/20/17 03:44 ABG pO2 64 mmHg (85-104) L 04/20/17 03:44 ABG HCO3 31 mEq/L (21-27) H 04/20/17 03:44 ABG Total CO2 32 mEq/L (20-26) H 04/20/17 03:44 ABG O2 Saturation 91 % (95-98) L 04/20/17 03:44 ABG Base Excess 5 mEq/L (-2 to 3) H 04/20/17 03:44 VBG pH 7.24 pH Units (7.32-7.42) L 04/17/17 10:00 VBG pCO2 62 mmHg (41-51) H 04/17/17 10:00 BUN 64 mg/dL (8-26) H D 04/21/17 04:47 Creatinine 4.66 mg/dL (0.72-1.25) H 04/21/17 04:47 Est GFR ( Amer) 15 (> 60) L 04/21/17 04:47 Est GFR (Non-Af Amer) 12 (> 60) L 04/21/17 04:47 Glucose 157 mg/dL (70-99) H 04/21/17 04:47 POC Glucose 163 (58-89) H 04/21/17 07:12 Calculated Osmolality 316 (280-300) H 04/21/17 04:47 Uric Acid 10.0 mg/dL (3.5-7.2) H 04/16/17 13:25 Calcium 7.8 mg/dL (8.6-10.8) L 04/21/17 04:47 Phosphorus 6.7 mg/dL (2.3-4.7) H 04/21/17 04:47 AST 43 Units/L (5-34) H 04/18/17 04:45 Creatine Kinase 361 Units/L (30-200) H 04/17/17 14:50 Troponin I 9.60 ng/mL (0-0.03) H* 04/17/17 23:25 B-Natriuretic Peptide 1199 pg/mL (0-100) H 04/16/17 13:25 Albumin 2.3 g/dL (3.5-5.0) L 04/18/17 04:45 Globulin 3.8 g/dL (2.4-3.5) H 04/18/17 04:45 Albumin/Globulin Ratio 0.6 (1.1-2.2) L 04/18/17 04:45 Urine Clarity Turbid (Clear) A 04/17/17 06:37 Ur Specific [place] 1.026 (1.010-1.025) H 04/17/17 06:37 Urine Protein 100 mg/dL (Neg-Trace) H 04/17/17 06:37 Urine Glucose (UA) 100 mg/dL (Normal) H 04/17/17 06:37 Urine Ketones Trace mg/dL (Negative) H 04/17/17 06:37 Urine Blood Large (Negative) H 04/17/17 06:37 Urine Bilirubin Small (Negative) H 04/17/17 06:37 Ur Leukocyte Esterase Small (Negative) H 04/17/17 06:37 - Microbiology Findings Microbiology Findings: Microbiology, Last 48 Hours 04/16/17 21:40 Sputum Culture - Final Sputum - Clinical Findings Intake & Output: Intake & Output 04/20/17 04/21/17 04/21/17 23:59 07:59 15:59 Intake Total 500 / 500 Output Total 275 / 275 150 / 150 Balance -275 / -275 350 / 350 Weight 119.11 kg Consult Discharge Plan - Plan Referrals: Priyank Guajardo MD [Primary Care Provider] - - Attending Attestation I examined this patient and my medical decision-making was reviewed with the Resident Physician. I agree with the documented findings, disposition and treatment plan as described except to the extent set forth below. We independently had [id number] contact with the patient Patient seen and examined at bedside Labs, radiology, chart personally reviewed. Management was reviewed during multidisciplinary critical care rounds. 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 Patient had aspiration event yesterday and I suspect he has pneumonia chest x-ray pending Cards: Status post cardiac arrest with likely related to ACS left heart catheter per cardiology recommendations is remains on ACS protocol FEN-GI: He is being treated with a PPI for gastritis he has an ileus which is resulted in episodes of vomiting KUB without pamella obstruction we have advanced his bowel regimen today may need NG tube based upon clinical course Renal: Acute kidney injury with underlying chronic kidney injury resulting in need for chronic renal replacement there is been no improvement in his kidney function since admission nephrology feels that he will need long-term dialysis and for dialysis today continue to monitor electrolytes and replace per protocol ID: Leukocytosis with a I suspect aspiration we have started empiric antimicrobial coverage de-escalate based upon cultures and clinical course Heme/Onc: He is on heparin infusion for ACS Endo: Glucose Monitored Integ/MSK: Skin Care per routine ICU Nursing Protocol to prevent ulcers. Lines: All lines examined without evidence of infection : Dispo: Stable for transfer to stepdown given nursing requirements CODE:DNAR/DNI I spoke with the patient's daughter and healthcare power of real estate associate attorney Mala today. She expressed that if patient is requiring renal replacement on a chronic basis that this would not be what her father would request and they are considering transitioning to comfort measures after family meeting and consensus decision <Osbaldo Tom - Last Filed: 04/21/17 14:30> Date of Encounter: 04/21/17 Time of Encounter: 08:00 Assessment and Plan (1) Acute and chronic respiratory failure with hypercapnia Current Visit: Yes Status: Acute - Cardiac arrest on 04/16/2017 just prior to arrival likely secondary to COPD flare in the setting of multiple medical comorbidities. - Possible acute exacerbation of COPD and likely cardiogenic pulmonary edema. - Patient was successfully extubated on 04/20. - Respiratory status improves as patient was weaned off from BiPAP and tolerated Oxymask most of time overnight. - Given the respiratory status improvement and patient's code status of DNR-CCA- DNI, patient can be transferred to step-down unit such as for further management. (2) Non-STEMI (non-ST elevated myocardial infarction) Current Visit: Yes Status: Acute - Status post cardiac arrest thought to be a PDA as did not receive any shocks. This appears to be due to an NSTEMI as troponins peaked at 44 but then trended downwards. - Echocardiogram on 04/16 shows preserved ejection fraction of 55-60%. - Patient's blood pressure have been stable, no evidence of cardiogenic shock. - Continue beta madeleine, statin, aspirin, plavix. - Heparin drip was discontinued on 04/17 as patient developed bleeding from his OG tube but restarted on 04/18. Still on heparin drip. - Left heart catheterization once able per cardiology. Appreciate cardiology input. (3) Zkcco-cp-masejhw kidney injury Current Visit: Yes Status: Acute - Oliguric with worsening Cr today (SCr 4.66 /eGFR 12) - Likely ATN secondary to hypotension during cardiac arrest. - Hemodialysis today and patient likely needs chronic dialysis per nephrology. Qualifiers: Acute renal failure type: unspecified Chronic kidney disease stage: unspecified stage Qualified Code(s): N17.9 - Acute kidney failure, unspecified ; N18.9 - Chronic kidney disease, unspecified; N18.9 - Chronic kidney disease, unspecified (4) Pneumonia Current Visit: No Status: Resolved - CXR 04/16 showed suspected right pleural effusion with increasing right basilar atelectasis or PNA - Patient was on cefepime (04/16 - 04/20). - Zosyn is started today for the concern of aspiration pneumonia. Qualifiers: Pneumonia type: due to unspecified organism Laterality: bilateral Lung location: unspecified part of lung Qualified Code(s): J18.9 - Pneumonia, unspecified organism (5) Coffee ground emesis Current Visit: Yes Status: Acute - Red bloody appearing fluid output from his OG tube noted on 04/17. - Endoscopy on 04/18 found LA Grade A esophagitis and few polyps in stomach. - Continue Protonix BID. (6) Anemia Current Visit: Yes Status: Chronic - Hemoglobin 7.2 on admission. - Anemia likely chronic at baseline. - Patient has received 3 units of packed red blood cells and 2 units of plasma since admission. - Hgb stable at 8.7 today. - Continue to monitor. Qualifiers: Anemia type: iron deficiency Iron deficiency anemia type: unspecified iron deficiency Qualified Code(s): D50.9 - Iron deficiency anemia, unspecified (7) CHF (congestive heart failure) Current Visit: Yes Status: Acute - CXR on 04/16 showed improving pulmonary edema but also suspected right pleural effusion with increasing right basilar atelectasis or pneumonia. - Likely diastolic as echo on 04/17/17 showed LVEF 60%. - Strict I/O and daily weight. Qualifiers: Congestive heart failure type: diastolic Congestive heart failure chronicity: unspecified congestive heart failure chronicity Qualified Code(s) : I50.30 - Unspecified diastolic (congestive) heart failure (8) COPD (chronic obstructive pulmonary disease) Current Visit: Yes Status: Chronic - Continue bronchodilators. (9) Cardiac arrest Current Visit: Yes Status: Acute - Cardiac arrest en route to [place] ED x2 receiving two rounds of CPR, epinepherine, and 2 amps of sodium bicarbonate. - Noted to be acidiotic upon arrival to ICU (10) Coronary artery disease Current Visit: Yes Status: Chronic - [place] CAB[place] [address] Chu. - Continue aspirin, Plavix, metoprolol and Lipitor. Qualifiers: Coronary Disease-Associated Artery/Lesion type: [place] artery [place] vs. transplanted heart: [place] heart Associated angina: angina presence unspecified Qualified Code(s): I25.10 - Atherosclerotic heart disease of [place] coronary artery without angina pectoris (11) History of CVA (cerebrovascular accident) without residual deficits Current Visit: Yes Status: Acute - Past medical history of CVA at unknown time. No residual deficits from his CVA per family. (12) DVT prophylaxis Current Visit: Yes Status: Acute - On heparin drip. GI prophylaxis: Protonix IV BID Subjective Principal diagnosis: NSTEMI, cardiopulmonary arrest Interval history: Patient tolerated Oxymask most of time overnight. Patient was seen and examined this morning. Patient is alert but hard to understand his speech. Objective PUL Vital signs: Last Vital Signs Temp 97.5 F L 04/21/17 07:38 Pulse 86 04/21/17 08:19 Resp 19 04/21/17 08:19 BP 139/38 04/21/17 08:19 Pulse Ox 95 04/21/17 08:19 General appearance: no acute distress, alert Eyes: nonicteric ENT: oropharynx dry Neck: supple Effort: normal Auscultation: bilateral: other (Course breath sounds) Cardiovascular: regular rate and rhythm Gastrointestinal: normoactive bowel sounds, soft, non-tender Integumentary: normal Extremities: no cyanosis, no edema Results - Laboratory Findings CBC and BMP: 04/21/17 04:47 04/21/17 04:47 ABG ABG pH 7.39 pH Units (7.32-7.45) 04/20/17 03:44 ABG pCO2 51 mmHg (35-45) H 04/20/17 03:44 ABG pO2 64 mmHg (85-104) L 04/20/17 03:44 ABG O2 Saturation 91 % (95-98) L 04/20/17 03:44 PT/INR, D-dimer PT 12.2 Seconds (9.4-12.1) H 04/21/17 04:47 Abnormal lab findings: Abnormal lab results WBC 11.4 K/mcL (4.3-11.1) H 04/21/17 04:47 RBC 3.44 M/mcL (4.19-5.50) L 04/21/17 04:47 Hgb 8.7 g/dL (12.9-16.9) L 04/21/17 04:47 Hct 28.6 % (37.5-50.1) L 04/21/17 04:47 MCH 25.3 pg (28.0-33.3) L 04/21/17 04:47 MCHC 30.4 g/dL (31.6-35.5) L 04/21/17 04:47 RDW 17.3 % (11.5-14.5) H 04/21/17 04:47 Neutrophils # 9.0 K/mcL (1.6-8.9) H 04/21/17 04:47 Nucleated RBCs/100 WBC 0.2 /100 WBC (0) H 04/21/17 04:47 PT 12.2 Seconds (9.4-12.1) H 04/21/17 04:47 APTT 77.5 Seconds (26.0-36.0) H 04/21/17 04:47 ABG pCO2 51 mmHg (35-45) H 04/20/17 03:44 ABG pO2 64 mmHg (85-104) L 04/20/17 03:44 ABG HCO3 31 mEq/L (21-27) H 04/20/17 03:44 ABG Total CO2 32 mEq/L (20-26) H 04/20/17 03:44 ABG O2 Saturation 91 % (95-98) L 04/20/17 03:44 ABG Base Excess 5 mEq/L (-2 to 3) H 04/20/17 03:44 VBG pH 7.24 pH Units (7.32-7.42) L 04/17/17 10:00 VBG pCO2 62 mmHg (41-51) H 04/17/17 10:00 BUN 64 mg/dL (8-26) H D 04/21/17 04:47 Creatinine 4.66 mg/dL (0.72-1.25) H 04/21/17 04:47 Est GFR ( Amer) 15 (> 60) L 04/21/17 04:47 Est GFR (Non-Af Amer) 12 (> 60) L 04/21/17 04:47 Glucose 157 mg/dL (70-99) H 04/21/17 04:47 POC Glucose 163 (58-89) H 04/21/17 07:12 Calculated Osmolality 316 (280-300) H 04/21/17 04:47 Uric Acid 10.0 mg/dL (3.5-7.2) H 04/16/17 13:25 Calcium 7.8 mg/dL (8.6-10.8) L 04/21/17 04:47 Phosphorus 6.7 mg/dL (2.3-4.7) H 04/21/17 04:47 AST 43 Units/L (5-34) H 04/18/17 04:45 Creatine Kinase 361 Units/L (30-200) H 04/17/17 14:50 Troponin I 9.60 ng/mL (0-0.03) H* 04/17/17 23:25 B-Natriuretic Peptide 1199 pg/mL (0-100) H 04/16/17 13:25 Albumin 2.3 g/dL (3.5-5.0) L 04/18/17 04:45 Globulin 3.8 g/dL (2.4-3.5) H 04/18/17 04:45 Albumin/Globulin Ratio 0.6 (1.1-2.2) L 04/18/17 04:45 Urine Clarity Turbid (Clear) A 04/17/17 06:37 Ur Specific [place] 1.026 (1.010-1.025) H 04/17/17 06:37 Urine Protein 100 mg/dL (Neg-Trace) H 04/17/17 06:37 Urine Glucose (UA) 100 mg/dL (Normal) H 04/17/17 06:37 Urine Ketones Trace mg/dL (Negative) H 04/17/17 06:37 Urine Blood Large (Negative) H 04/17/17 06:37 Urine Bilirubin Small (Negative) H 04/17/17 06:37 Ur Leukocyte Esterase Small (Negative) H 04/17/17 06:37 - Microbiology Findings Microbiology Findings: Microbiology, Last 48 Hours 04/16/17 21:40 Sputum Culture - Final Sputum - Diagnostic Findings Chest x-ray: report reviewed, image reviewed - Clinical Findings Intake & Output: Intake & Output 04/20/17 04/21/17 04/21/17 23:59 07:59 15:59 Intake Total 500 / 500 Output Total 275 / 275 150 / 150 Balance -275 / -275 350 / 350 Weight 119.11 kg - VTE Documentation of Mechanical Device: Intermittent pneumatic compression device
[2017-04-21] MEDS ORDERED: Piperacillin/Tazobactam 3.375 GM/200 ML BAG IVPB SCH (09:00)
[2017-04-21] MEDS ORDERED: Pantoprazole 40 MG VIAL IVP SCH (09:00)
[2017-04-21] MEDS ORDERED: Aspirin 81 MG TAB.CHEW PO SCH (09:00)
--- NOTE | 2017-04-21 09:21 | Nephrology Progress Note ---
Date of Encounter: 04/21/17 Time of Encounter: 08:50 - Assessment and Plan (1) VAHID (acute kidney injury) Current Visit: Yes Status: Acute VAHID/CKD. Remains oliguric, no signs of renal recovery. HD today, orders given. Subjective Principal diagnosis: NSTEMI, cardiopulmonary arrest Interval history: Awake, extubated on PRB. Updated on renal fct. No renal recvery at present. Extensive discussion with daughter and several family members also present. States does not want dad on chronic HD. Awaiting a brothers arrival to discuss fci issues. Daughter agrees with HD today. Most likely wants Palliative Care brought on board. Dr. Noonan apprised of family discussion. Objective - Vital Signs Vital signs: Vital Signs Temp Pulse Resp BP Pulse Ox 04/21/17 08:19 85 19 139/38 95 04/21/17 07:54 17 94 04/21/17 07:38 97.5 F L 04/21/17 04:44 22 136/32 93 04/21/17 03:00 97.5 F L 04/21/17 00:49 25 72/55 94 04/21/17 00:00 15 98/37 91 04/20/17 23:33 98.3 F 04/20/17 20:00 85 18 168/66 94 04/20/17 19:34 25 119/53 94 04/20/17 19:20 98.2 F 04/20/17 16:45 98.5 F 04/20/17 16:10 22 94 04/20/17 15:00 98.2 F 87 22 113/49 90 04/20/17 12:05 98.2 F 04/20/17 12:00 76 04/20/17 11:30 17 103/55 93 04/20/17 11:00 73 17 103/55 93 04/20/17 10:00 77 20 98/33 94 04/20/17 09:40 124/77 94 Intake and Output 04/20/17 04/21/17 04/21/17 23:59 07:59 15:59 Intake Total 500 / 500 Output Total 275 / 275 150 / 150 Balance -275 / -275 350 / 350 Intake: IV Fluids 500 / 500 Output: Catheter 275 / 275 150 / 150 Other: Weight 119.11 kg Blood Glucose* 115 163 Patient Weight 04/21/17 23:59 Weight 119.11 kg - General Appearance General appearance: Present: well-developed, well-nourished, appears started age , obese EENT: Present: mucous membranes moist Neck: Present: no JVD Respiratory: Present: rhonchi Cardiology: Present: regular rate, regular rhythm Additional Comments: generalized Gastrointestinal: Present: normoactive bowel sounds, no guarding Integumentary: Present: warm and dry Psychiatric: Present: mood/affect appropriate, cooperative - Lab 04/21/17 04:47 04/21/17 04:47 Most recent lab results ABG pH 7.39 pH Units (7.32-7.45) 04/20/17 03:44 ABG pCO2 51 mmHg (35-45) H 04/20/17 03:44 ABG pO2 64 mmHg (85-104) L 04/20/17 03:44 ABG HCO3 31 mEq/L (21-27) H 04/20/17 03:44 ABG O2 Saturation 91 % (95-98) L 04/20/17 03:44 Calcium 7.8 mg/dL (8.6-10.8) L 04/21/17 04:47 Phosphorus 6.7 mg/dL (2.3-4.7) H 04/21/17 04:47 Magnesium 1.9 mg/dL (1.6-2.6) 04/21/17 04:47 - VTE Documentation of Mechanical Device: Intermittent pneumatic compression device Consult Discharge Plan - Plan Referrals: Priyank Guajardo MD [Primary Care Provider] -
[2017-04-21] MEDS ORDERED: Bisacodyl 10 MG RECTAL SUPPOSITORY RC PRN (09:23)
[2017-04-21] MEDS ORDERED: Lactulose Oral Soln 20 GM/30 ML UDC PO ONE (11:23)
[2017-04-21] MEDS ORDERED: 0.9 % Sodium Chloride 1,000 ML ONE (12:10)
[2017-04-21] MEDS: Docusate Oral Soln 100 MG/10 ML UDC GTUBE SCH ×2 (12:43→19:53)
[2017-04-21] MEDS ORDERED: *HR* Heparin 10,000 UNIT/10 ML VIAL IV PRN ×4 (12:44→13:50)
[2017-04-21] MEDS ORDERED: 0.9 % Sodium Chloride 250 ML IVC PRN ×3 (12:44→13:50)
--- NOTE | 2017-04-21 12:51 | Cardiology Progress Note ---
Date of Encounter: 04/21/17 Time of Encounter: 10:30 Assessment and Plan (1) Cardiac arrest Current Visit: Yes Status: Acute Per Cardiology: -Cardiopulmonary arrest likely multifactorial. Patient thought to have PEA. He did not receive defibrillation. EKG did not demonstrate any evidence of STEMI- reviewed by interventionalist. Cardiac enzymes markedly elevated in setting of cardiopulmonary arrest/ NSTEMI. At this time, pt not candidate for invasive evaluation due to acute GI bleed and acute renal failure. -Initial echocardiogram demonstrated normal LV function EF 55-60%. Wall motion abnormalities cannot be excluded. Repeat study completed showed atypical septal motion consistent with post-op status, otherwise no WMA. EF 60%. -On heparin drip. -Recommended [place], however patient with VAHID now requiring dialysis. Per review of records, family does not want patient to be on permanent dialysis. Family requested palliative care consult. Cardiology will sign off. Reconsult if renal function imrpoves significantly. Of note, patient is DNR-CCA/DNI. (2) VAHID (acute kidney injury) Current Visit: Yes Status: Acute Per cardiology: -VAHID, now requiring dialysis. -Management per primary and nephrology services. (3) Non-STEMI (non-ST elevated myocardial infarction) Current Visit: Yes Status: Acute Per cardiology: -NSTEMI in the setting of cardiopulmonary arrest. Troponin 44. Aggressive medical therapy. TTE shows preserved EF. -GI bleed resolved. Will restart heparin. -Continue asa, statin, and bb. -Not a candidate for cardiac rehab at this time. (4) Coronary artery disease Current Visit: Yes Status: Chronic Per cardiology: - H/[place] CAB[place] [address] Chu- DELEON to LAD, seq SVG to diag 2, OM1, SVG to R PDA. -Continue medical management. Qualifiers: Qualified Code(s): I25.10 - Atherosclerotic heart disease of [place] coronary artery without angina pectoris (5) PAF (paroxysmal atrial fibrillation) Current Visit: Yes Status: Acute Per cardiology: -KNown history of PAF. -PAF noted overnight. -ON heparin drip. -Rate controlled. Discussion w patient/family: The assessment and plan as outlined above was discussed with the patient who expressed understanding and agreement. All questions were answered. Thank you for involving us in the care of your patient. Please call with any questions. Discussed and reviewed with . Subjective Principal diagnosis: NSTEMI, cardiopulmonary arrest Interval history: Patient extubated on oximask. Oriented to person and place. Speech somewhat garbled. Objective Vital Signs, Last 4 Hours Temp Pulse Resp BP Pulse Ox 04/21/17 12:27 82 17 112/34 93 04/21/17 12:22 17 93 04/21/17 11:57 98.8 F General: Conversant HEENT: Atraumatic, Normocephaly, Mucus Membranes Moist Neck: No JVD, Normal carotid pulses Cardiac: Reg Rate and Rhythm, Normal S1 and S2, No Murmur Lungs: Other (Lung sounds coarse throughout. ) Neuro: Alert and responsive, Other (Oriented to person and place. Speech garbled ) Abdomen: Soft, Non-Tender Skin: No rashes noted on visualized skin Musculoskeletal: No Chest Wall Tenderness Extremities: No Clubbing, No Cyanosis, No Edema, Normal Pulses Results 04/21/17 04:47 04/21/17 04:47 Lab Results Impressions Chest X-Ray 04/21/17 08:30 IMPRESSION: Interval extubation. No significant change in pulmonary edema. Small bilateral pleural effusions and bibasilar airspace opacities are unchanged. D/ / 04/21/2017 10:08:28 Se Dallas MD / Aleyda Skaggs Interpreting Provider: Se Dallas MD Active Medications Albuterol/Ipratropium (Duoneb) 3 ml IH [id number] PRN PRN Reason: Shortness Of Breath/Wheezing Stop: 10/16/17 00:29 Albuterol/Ipratropium (Duoneb) 3 ml IH [id number] RADHA Stop: 10/16/17 04:01 Last Admin: 04/21/17 12:21 Dose: 3 ml Aspirin (Aspirin) 81 mg PO DAILY RADHA Stop: 10/17/17 09:01 Last Admin: 04/21/17 12:42 Dose: 81 mg Atorvastatin Calcium (Lipitor) 40 mg PO HS RADHA Stop: 10/16/17 21:01 Last Admin: 04/20/17 20:47 Dose: Not Given Chlorhexidine Gluconate (Chlorhexidine Rinse) 15 ml MM BID RADHA Stop: 10/16/17 09:01 Last Admin: 04/21/17 08:37 Dose: 15 ml Clopidogrel Bisulfate (Plavix) 75 mg PO DAILY RADHA Stop: 10/17/17 09:01 Last Admin: 04/21/17 12:42 Dose: 75 mg Dextrose/Water (Dextrose 50% (Syg)) 25 ml IVP AD PRN PRN Reason: Hypoglycemia Stop: 10/16/17 00:59 Docusate Sodium (Colace) 100 mg GTUBE BID RADHA Stop: 10/16/17 09:01 Last Admin: 04/21/17 12:43 Dose: 100 mg Glucagon (Glucagen) 1 mg IM ONCE PRN PRN Reason: Hypoglycemia Stop: 10/16/17 00:59 Glucose (Gluctose) 15 gm PO ONCE PRN PRN Reason: Hypoglycemia Stop: 10/16/17 00:59 Glucose (Gluctose) 30 gm PO ONCE PRN PRN Reason: Hypoglycemia Stop: 10/16/17 00:59 Heparin Sodium (Porcine) (Heparin) 0 unit IV ONCE PRN PRN Reason: Hemodialysis Catheter Packing Heparin Sodium (Porcine) (Heparin) 0 unit IV ONCE PRN PRN Reason: Hemodialysis Catheter Packing Heparin Sodium (Porcine) (Heparin) 4,000 unit IVP Q6HR PRN PRN Reason: SEE COMMENTS Stop: 10/19/17 16:04 Heparin Sodium (Porcine) (Heparin) 2,000 unit IVP Q6H PRN PRN Reason: SEE COMMENTS Stop: 10/19/17 16:04 Heparin Sodium (Porcine) (Heparin) 0 unit IV ONCE PRN PRN Reason: Hemodialysis Catheter Packing Sodium Chloride (0.9 % Sodium Chloride) 250 mls @ 937.5 mls/hr IVC .Q16M PRN PRN Reason: Hypotension Stop: 10/19/17 07:53 Dextrose (Dextrose 5%) 1,000 mls @ 100 mls/hr IVC .Q10H PRN PRN Reason: HYPOGLYCEMIA Stop: 10/16/17 00:59 Heparin Sodium/Dextrose (Heparin 25,000 Unit/500 Ml D5w) 25,000 unit in 500 mls @ 20.177 mls/hr IVC .Q24H RADHA; 8.2 UNIT/KG/HR PRN Reason: Protocol Stop: 10/19/17 16:16 Last Admin: 04/21/17 06:04 Dose: 12.23 unit/kg/hr, 30.1 mls/hr Piperacillin Sod/Tazobactam Sod (Zosyn Premix 3.375 Gm/200 Ml) 3.375 gm in 200 mls @ 50 mls/hr IVPB Q12H [facility] Stop: 10/21/17 09:01 Last Admin: 04/21/17 09:23 Dose: 50 mls/hr Sodium Chloride (0.9 % Sodium Chloride) 250 mls @ 937.5 mls/hr IVC .Q16M PRN PRN Reason: Hypotension Stop: 10/21/17 12:45 Insulin Human Lispro (Humalog) 0 units SQ Q4HR RADHA PRN Reason: Protocol Stop: 10/16/17 16:01 Last Admin: 04/21/17 09:22 Dose: 6 units Metoprolol Tartrate (Lopressor) 50 mg PO BID [facility] Stop: 10/17/17 21:01 Last Admin: 04/21/17 12:42 Dose: 50 mg Naloxone HCl (Narcan) 0.4 mg IVP Q2MIN PRN PRN Reason: Opioid Reversal Stop: 10/16/17 00:25 Ondansetron HCl (Zofran) 4 mg IVP Q6HR PRN; Protocol PRN Reason: nausea Stop: 10/20/17 08:55 Last Admin: 04/21/17 03:36 Dose: 4 mg Pantoprazole Sodium (Protonix) 40 mg IVP DAILY [facility] Stop: 10/21/17 09:01 Last Admin: 04/21/17 08:37 Dose: 40 mg Laboratory Tests 04/21/17 04/21/17 04:47 04:47 Hgb 8.7 L Potassium 4.1 Creatinine 4.66 H Magnesium 1.9 - Imaging and Cardiology Chest Xray: report reviewed Echo: report reviewed - EKG Interpretation EKG results cardiology: other (Telemetry reviewed with average HR previous 12 hours noted to be 80, SR. PVCs noted. PAF noted.) - VTE Documentation of Mechanical Device: Intermittent pneumatic compression device Consult Discharge Plan - Plan Referrals: Priyank Guajardo MD [Primary Care Provider] -
[2017-04-21] MEDS ORDERED: Dextrose Gel 15 GM PO PRN ×2 (13:50)
[2017-04-21] MEDS ORDERED: D5% in Water 1,000 ML IVC PRN (13:50)
[2017-04-21] MEDS ORDERED: Ondansetron 4 MG/2 ML VIAL IVP PRN (13:50)
[2017-04-21] MEDS ORDERED: *HR* Dextrose 50 % in Water (Syg) 50 ML SYRINGE IVP PRN (13:50)
[2017-04-21] MEDS ORDERED: Ipratropium/Albuterol Neb 3 ML IH PRN (13:50)
[2017-04-21] MEDS ORDERED: *HR* Heparin 5,000 UNIT/ML VIAL IVP PRN ×2 (13:50)
[2017-04-21] MEDS ORDERED: Naloxone 0.4 MG/ML INJ IVP PRN (13:50)
[2017-04-21] MEDS: Piperacillin/Tazobactam 3.375 GM/200 ML BAG IVPB SCH (19:59)
[2017-04-22] MEDS: Ipratropium/Albuterol Neb 3 ML IH SCH ×8 (00:05→23:18)
[2017-04-22] MEDS: Insulin LISPRO 300 UNITS/3 ML VIAL SQ SCH ×3 (00:47→16:33)
[2017-04-22] MEDS: Heparin 25,000 UNIT/500 ML D5W 25,000 UNIT/500 ML BAG IVC SCH ×2 (00:47→16:33)
[2017-04-22 04:55] LABS: Basophils % 0.3 %; Eosinophils # 0.2 K/mcL (0.0-0.6); Eosinophils % 1.5 %; Hematocrit 28.6 % (37.5-50.1); Hemoglobin 8.8 g/dL (12.9-16.9); Immature Granulocytes % 2.3 % (0-4); Lymphocytes # 1.6 K/mcL (0.6-4.6); Lymphocytes % 13.2 %; Mean Corpuscular HGB Conc 30.8 g/dL (31.6-35.5); Mean Corpuscular Hemoglobin 25.6 pg (28.0-33.3); Mean Corpuscular Volume 83.1 fL (83.0-100.0); Mean Platelet Volume 10.8 fL (9.4-12.4); Monocytes # 1.1 K/mcL (0.0-1.3); Monocytes % 9.4 %; Neutrophils # 8.7 K/mcL (1.6-8.9); Nucleated Red Blood Cells 0.2 /100 WBC (0); Platelet Count 289 K/mcL (140-400); Red Blood Count 3.44 M/mcL (4.19-5.50); Red Cell Distribution Width 17.3 % (11.5-14.5); Segmented Neutrophils % 73.3 %
[2017-04-22 04:58] LABS: Calcium 7.9 mg/dL (8.6-10.8); Magnesium 1.9 mg/dL (1.6-2.6); Phosphorous 5.3 mg/dL (2.3-4.7); Potassium 4.1 mEq/L (3.5-4.5)
--- NOTE | 2017-04-22 07:32 | Pulmonology Progress Note ---
<Osbaldo Tom - Last Filed: 04/22/17 10:44> Date of Encounter: 04/22/17 Time of Encounter: 07:20 Assessment and Plan (1) Acute and chronic respiratory failure with hypercapnia Current Visit: Yes Status: Acute - Cardiac arrest on 04/16/2017 just prior to arrival likely secondary to COPD flare in the setting of multiple medical comorbidities. - Possible acute exacerbation of COPD and likely cardiogenic pulmonary edema. - Patient was successfully extubated on 04/20. - Respiratory status improves as patient tolerates Oxymask well. - Given the respiratory status improvement and patient's code status DNR- Comfort care, patient can be transferred to medical floor for comfort care. - Palliative care consulted and appreciate assistance. (2) Non-STEMI (non-ST elevated myocardial infarction) Current Visit: Yes Status: Acute - Status post cardiac arrest thought to be a PDA as did not receive any shocks. This appears to be due to an NSTEMI as troponins peaked at 44 but then trended downwards. - Echocardiogram on 04/16 shows preserved ejection fraction of 55-60%. - Patient's blood pressure have been stable, no evidence of cardiogenic shock. - Currently on beta madeleine, statin, aspirin, plavix. - Left heart catheterization once able per cardiology. But cardiology had signed off as patient now is in comfort care. - Discontinue heparin drip. (3) Eiyao-gz-ymouwsc kidney injury Current Visit: Yes Status: Acute - Oliguric with worsening Cr today (SCr 4.66 /eGFR 12) - Likely ATN secondary to hypotension during cardiac arrest. - Patient had hemodialysis yesterday but family now decides to switch to comfort care and does not want chronic dialysis. Qualifiers: Acute renal failure type: unspecified Chronic kidney disease stage: unspecified stage Qualified Code(s): N17.9 - Acute kidney failure, unspecified ; N18.9 - Chronic kidney disease, unspecified; N18.9 - Chronic kidney disease, unspecified (4) Pneumonia Current Visit: No Status: Resolved - CXR 04/16 showed suspected right pleural effusion with increasing right basilar atelectasis or PNA - Patient was on cefepime (04/16 - 04/20). - Continue IV Zosyn (since 04/21) for the concern of aspiration pneumonia. Qualifiers: Pneumonia type: due to unspecified organism Laterality: bilateral Lung location: unspecified part of lung Qualified Code(s): J18.9 - Pneumonia, unspecified organism (5) Coffee ground emesis Current Visit: Yes Status: Acute - Red bloody appearing fluid output from his OG tube noted on 04/17. - Endoscopy on 04/18 found LA Grade A esophagitis and few polyps in stomach. - Continue PPI. (6) Anemia Current Visit: Yes Status: Chronic - Hemoglobin 7.2 on admission. - Anemia likely chronic at baseline. - Patient has received 3 units of packed red blood cells and 2 units of plasma since admission. - Hgb stable at 8.8 today. Qualifiers: Anemia type: iron deficiency Iron deficiency anemia type: unspecified iron deficiency Qualified Code(s): D50.9 - Iron deficiency anemia, unspecified (7) CHF (congestive heart failure) Current Visit: Yes Status: Acute - CXR on 04/16 showed improving pulmonary edema but also suspected right pleural effusion with increasing right basilar atelectasis or pneumonia. - Likely diastolic as echo on 04/17/17 showed LVEF 60%. - Strict I/O and daily weight. Qualifiers: Congestive heart failure type: diastolic Congestive heart failure chronicity: unspecified congestive heart failure chronicity Qualified Code(s) : I50.30 - Unspecified diastolic (congestive) heart failure (8) COPD (chronic obstructive pulmonary disease) Current Visit: Yes Status: Chronic - Continue bronchodilators. Qualifiers: COPD type: unspecified COPD Qualified Code(s): J44.9 - Chronic obstructive pulmonary disease, unspecified (9) Cardiac arrest Current Visit: Yes Status: Acute - Cardiac arrest en route to [place] ED x2 receiving two rounds of CPR, epinepherine, and 2 amps of sodium bicarbonate. - Noted to be acidiotic upon arrival to ICU (10) Coronary artery disease Current Visit: Yes Status: Chronic - [place] [address] Chu. - Continue aspirin, Plavix, metoprolol and Lipitor. Qualifiers: Coronary Disease-Associated Artery/Lesion type: [place] artery [place] vs. transplanted heart: [place] heart Associated angina: angina presence unspecified Qualified Code(s): I25.10 - Atherosclerotic heart disease of [place] coronary artery without angina pectoris (11) History of CVA (cerebrovascular accident) without residual deficits Current Visit: Yes Status: Acute - Past medical history of CVA at unknown time. No residual deficits from his CVA per family. - CT head on 04/21/17 found no acute intracranial abnormality. (12) DVT prophylaxis Current Visit: Yes Status: Acute - Continue EPCD. GI prophylaxis: PPI Subjective Principal diagnosis: NSTEMI, cardiopulmonary arrest Interval history: Patient continued to tolerate Oxymask overnight. Patient was seen and examined this morning. Patient is alert and denies having any pain. Dr. Noonan had discussion with patient's family this morning and the family's decision is to switch goal of care to comfort care. Objective PUL Vital signs: Last Vital Signs Temp 99.3 F 04/22/17 04:59 Pulse 87 04/22/17 04:30 Resp 23 04/22/17 04:30 BP 107/54 04/22/17 04:30 Pulse Ox 96 04/22/17 04:30 General appearance: no acute distress, alert Eyes: nonicteric ENT: oropharynx dry Neck: supple Effort: normal Auscultation: bilateral: clear Cardiovascular: regular rate and rhythm Gastrointestinal: normoactive bowel sounds, soft, non-tender Integumentary: normal Extremities: no cyanosis, no edema Musculoskeletal: no deformities non-focal exam Results - Laboratory Findings CBC and BMP: 04/22/17 04:27 04/22/17 04:27 ABG ABG pH 7.39 pH Units (7.32-7.45) 04/20/17 03:44 ABG pCO2 51 mmHg (35-45) H 04/20/17 03:44 ABG pO2 64 mmHg (85-104) L 04/20/17 03:44 ABG O2 Saturation 91 % (95-98) L 04/20/17 03:44 PT/INR, D-dimer PT 12.2 Seconds (9.4-12.1) H 04/21/17 04:47 Abnormal lab findings: Abnormal lab results WBC 11.9 K/mcL (4.3-11.1) H 04/22/17 04:27 RBC 3.44 M/mcL (4.19-5.50) L 04/22/17 04:27 Hgb 8.8 g/dL (12.9-16.9) L 04/22/17 04:27 Hct 28.6 % (37.5-50.1) L 04/22/17 04:27 MCH 25.6 pg (28.0-33.3) L 04/22/17 04:27 MCHC 30.8 g/dL (31.6-35.5) L 04/22/17 04:27 RDW 17.3 % (11.5-14.5) H 04/22/17 04:27 Nucleated RBCs/100 WBC 0.2 /100 WBC (0) H 04/22/17 04:27 PT 12.2 Seconds (9.4-12.1) H 04/21/17 04:47 APTT 64.7 Seconds (26.0-36.0) H 04/22/17 04:27 ABG pCO2 51 mmHg (35-45) H 04/20/17 03:44 ABG pO2 64 mmHg (85-104) L 04/20/17 03:44 ABG HCO3 31 mEq/L (21-27) H 04/20/17 03:44 ABG Total CO2 32 mEq/L (20-26) H 04/20/17 03:44 ABG O2 Saturation 91 % (95-98) L 04/20/17 03:44 ABG Base Excess 5 mEq/L (-2 to 3) H 04/20/17 03:44 VBG pH 7.24 pH Units (7.32-7.42) L 04/17/17 10:00 VBG pCO2 62 mmHg (41-51) H 04/17/17 10:00 BUN 45 mg/dL (8-26) H D 04/22/17 04:27 Creatinine 4.32 mg/dL (0.72-1.25) H 04/22/17 04:27 Est GFR ( Amer) 16 (> 60) L 04/22/17 04:27 Est GFR (Non-Af Amer) 13 (> 60) L 04/22/17 04:27 Glucose 126 mg/dL (70-99) H 04/22/17 04:27 POC Glucose 119 (58-89) H 04/22/17 04:30 Calculated Osmolality 305 (280-300) H 04/22/17 04:27 Uric Acid 10.0 mg/dL (3.5-7.2) H 04/16/17 13:25 Calcium 7.9 mg/dL (8.6-10.8) L 04/22/17 04:27 Phosphorus 5.3 mg/dL (2.3-4.7) H 04/22/17 04:27 AST 43 Units/L (5-34) H 04/18/17 04:45 Creatine Kinase 361 Units/L (30-200) H 04/17/17 14:50 Troponin I 9.60 ng/mL (0-0.03) H* 04/17/17 23:25 B-Natriuretic Peptide 1199 pg/mL (0-100) H 04/16/17 13:25 Albumin 2.3 g/dL (3.5-5.0) L 04/18/17 04:45 Globulin 3.8 g/dL (2.4-3.5) H 04/18/17 04:45 Albumin/Globulin Ratio 0.6 (1.1-2.2) L 04/18/17 04:45 Urine Clarity Turbid (Clear) A 04/17/17 06:37 Ur Specific [place] 1.026 (1.010-1.025) H 04/17/17 06:37 Urine Protein 100 mg/dL (Neg-Trace) H 04/17/17 06:37 Urine Glucose (UA) 100 mg/dL (Normal) H 04/17/17 06:37 Urine Ketones Trace mg/dL (Negative) H 04/17/17 06:37 Urine Blood Large (Negative) H 04/17/17 06:37 Urine Bilirubin Small (Negative) H 04/17/17 06:37 Ur Leukocyte Esterase Small (Negative) H 04/17/17 06:37 - Clinical Findings Intake & Output: Intake & Output 04/21/17 04/21/17 04/22/17 15:59 23:59 07:59 Intake Total 600 / 600 279 / 279 824 / 824 Output Total 250 / 250 3625 / 3625 25 / 25 Balance 350 / 350 -3346 / -3346 799 / 799 - VTE Documentation of Mechanical Device: Intermittent pneumatic compression device Consult Discharge Plan - Plan Referrals: Priyank Guajardo MD [Primary Care Provider] - <Marvin Noonan - Last Filed: 04/22/17 11:15> Date of Encounter: 04/22/17 Assessment and Plan (1) Acute and chronic respiratory failure with hypercapnia Current Visit: Yes Status: Acute (2) Acute exacerbation of chronic obstructive airways disease Current Visit: No Status: Acute (3) Anemia Current Visit: Yes Status: Chronic Qualifiers: Anemia type: iron deficiency Iron deficiency anemia type: unspecified iron deficiency Qualified Code(s): D50.9 - Iron deficiency anemia, unspecified (4) Heart failure, diastolic Current Visit: No Status: Chronic Qualifiers: Heart failure chronicity: acute on chronic Qualified Code(s): I50.33 - Acute on chronic diastolic (congestive) heart failure (5) Zlead-wf-mebuatm kidney injury Current Visit: Yes Status: Acute Qualifiers: Acute renal failure type: unspecified Chronic kidney disease stage: unspecified stage Qualified Code(s): N17.9 - Acute kidney failure, unspecified ; N18.9 - Chronic kidney disease, unspecified; N18.9 - Chronic kidney disease, unspecified (6) Non-STEMI (non-ST elevated myocardial infarction) Current Visit: Yes Status: Acute (7) UGI bleed Current Visit: Yes Status: Acute Objective PUL Vital signs: Last Vital Signs Temp 98.4 F 04/22/17 07:55 Pulse 81 04/22/17 09:14 Resp 23 04/22/17 09:14 BP 129/31 04/22/17 09:14 Pulse Ox 96 04/22/17 09:14 Results - Laboratory Findings CBC and BMP: 04/22/17 04:27 04/22/17 04:27 ABG ABG pH 7.39 pH Units (7.32-7.45) 04/20/17 03:44 ABG pCO2 51 mmHg (35-45) H 04/20/17 03:44 ABG pO2 64 mmHg (85-104) L 04/20/17 03:44 ABG O2 Saturation 91 % (95-98) L 04/20/17 03:44 PT/INR, D-dimer PT 12.2 Seconds (9.4-12.1) H 04/21/17 04:47 Abnormal lab findings: Abnormal lab results WBC 11.9 K/mcL (4.3-11.1) H 04/22/17 04:27 RBC 3.44 M/mcL (4.19-5.50) L 04/22/17 04:27 Hgb 8.8 g/dL (12.9-16.9) L 04/22/17 04:27 Hct 28.6 % (37.5-50.1) L 04/22/17 04:27 MCH 25.6 pg (28.0-33.3) L 04/22/17 04:27 MCHC 30.8 g/dL (31.6-35.5) L 04/22/17 04:27 RDW 17.3 % (11.5-14.5) H 04/22/17 04:27 Nucleated RBCs/100 WBC 0.2 /100 WBC (0) H 04/22/17 04:27 PT 12.2 Seconds (9.4-12.1) H 04/21/17 04:47 APTT 64.7 Seconds (26.0-36.0) H 04/22/17 04:27 ABG pCO2 51 mmHg (35-45) H 04/20/17 03:44 ABG pO2 64 mmHg (85-104) L 04/20/17 03:44 ABG HCO3 31 mEq/L (21-27) H 04/20/17 03:44 ABG Total CO2 32 mEq/L (20-26) H 04/20/17 03:44 ABG O2 Saturation 91 % (95-98) L 04/20/17 03:44 ABG Base Excess 5 mEq/L (-2 to 3) H 04/20/17 03:44 VBG pH 7.24 pH Units (7.32-7.42) L 04/17/17 10:00 VBG pCO2 62 mmHg (41-51) H 04/17/17 10:00 BUN 45 mg/dL (8-26) H D 04/22/17 04:27 Creatinine 4.32 mg/dL (0.72-1.25) H 04/22/17 04:27 Est GFR ( Amer) 16 (> 60) L 04/22/17 04:27 Est GFR (Non-Af Amer) 13 (> 60) L 04/22/17 04:27 Glucose 126 mg/dL (70-99) H 04/22/17 04:27 POC Glucose 146 (58-89) H 04/22/17 07:29 Calculated Osmolality 305 (280-300) H 04/22/17 04:27 Uric Acid 10.0 mg/dL (3.5-7.2) H 04/16/17 13:25 Calcium 7.9 mg/dL (8.6-10.8) L 04/22/17 04:27 Phosphorus 5.3 mg/dL (2.3-4.7) H 04/22/17 04:27 AST 43 Units/L (5-34) H 04/18/17 04:45 Creatine Kinase 361 Units/L (30-200) H 04/17/17 14:50 Troponin I 9.60 ng/mL (0-0.03) H* 04/17/17 23:25 B-Natriuretic Peptide 1199 pg/mL (0-100) H 04/16/17 13:25 Albumin 2.3 g/dL (3.5-5.0) L 04/18/17 04:45 Globulin 3.8 g/dL (2.4-3.5) H 04/18/17 04:45 Albumin/Globulin Ratio 0.6 (1.1-2.2) L 04/18/17 04:45 Urine Clarity Turbid (Clear) A 04/17/17 06:37 Ur Specific [place] 1.026 (1.010-1.025) H 04/17/17 06:37 Urine Protein 100 mg/dL (Neg-Trace) H 04/17/17 06:37 Urine Glucose (UA) 100 mg/dL (Normal) H 04/17/17 06:37 Urine Ketones Trace mg/dL (Negative) H 04/17/17 06:37 Urine Blood Large (Negative) H 04/17/17 06:37 Urine Bilirubin Small (Negative) H 04/17/17 06:37 Ur Leukocyte Esterase Small (Negative) H 04/17/17 06:37 - Microbiology Findings Microbiology Findings: Microbiology, Last 48 Hours 04/16/17 18:34 Blood Culture - Final Peripheral Central Cath, Picc No growth. 04/16/17 16:31 Blood Culture - Final Peripheral Venipuncture No growth. - Clinical Findings Intake & Output: Intake & Output 04/21/17 04/22/17 04/22/17 23:59 07:59 15:59 Intake Total 279 / 279 824 / 824 Output Total 3625 / 3625 50 / 50 25 / Balance -3346 / -3346 774 / 774 -25 - Attending Attestation I examined this patient and my medical decision-making was reviewed with the Resident Physician. I agree with the documented findings, disposition and treatment plan as described except to the extent set forth below. We independently had [id number] contact with the patient Patient seen and examined at bedside Labs, radiology, chart personally reviewed. Management was reviewed during multidisciplinary critical care rounds. Met with family today to discuss goals of care they want to transition to hospice palliative care service was consulted as a result CODE STATUS changed to reflect this. I think this is not medically reasonable decision and the family is making this decision to reflect patient's wishes as he is incompetent to make decisions currently..
--- NOTE | 2017-04-22 07:50 | Event Note ---
Date of Encounter: 04/22/17 Time of Encounter: 07:50 It appears that the patient's family's transitioning to comfort care only. Nephrology will sign off. Please call again if needed.
[2017-04-22] MEDS ORDERED: Aspirin 81 MG TAB.CHEW PO SCH (09:00)
[2017-04-22] MEDS ORDERED: Pantoprazole 40 MG VIAL IVP SCH (09:00)
[2017-04-22] MEDS: Docusate Oral Soln 100 MG/10 ML UDC GTUBE SCH (09:24)
[2017-04-22] MEDS: Chlorhexidine Rinse 15 ML MOUTHWASH MM SCH (09:24)
[2017-04-22] MEDS ORDERED: *HR* LORazepam 2 MG/ML VIAL IVP PRN (10:35)
[2017-04-22] MEDS ORDERED: OxyCODONE CONC 5 MG/0.25 ML ORAL.SYG SL PRN (10:35)
[2017-04-22] MEDS ORDERED: Scopolamine Patch 1.5 MG PATCH.TD72 TD PRN ×2 (10:36→11:37)
--- NOTE | 2017-04-22 11:04 | Palliative - Consult Note ---
Date of Encounter: 04/22/17 Time of Encounter: 10:00 - Assessment and Plan (1) Acute on chronic renal insufficiency Current Visit: Yes Status: Acute Assessment and plan: Patient and family agree to not do life long dialysis. They opt for comfort care. Patient transferred to palliative care bed. Will maintain comfort as needed. (2) Goals of care, counseling/discussion Current Visit: Yes Status: Acute Assessment and plan: Conducted bedside meeting with patient and family. They agree to forgo any assistant terminal manager dialysis and opt for comfort care. Will transition to palliative care bed with goals of comfort as patient cannot swallow effectively. Comfort diet education provided to family. Will transition to 2A55 and consider inpatient hospice transition on Monday. DNRCC - Comfort Care. Medications and pain control reviewed. (3) VAHID (acute kidney injury) Current Visit: Yes Status: Acute (4) Cardiac arrest Current Visit: Yes Status: Acute (5) COPD (chronic obstructive pulmonary disease) Current Visit: Yes Status: Chronic Qualifiers: COPD type: unspecified COPD Qualified Code(s): J44.9 - Chronic obstructive pulmonary disease, unspecified Palliative-CN HPI - Data of Consult Patient: new to practice Consult date: 04/22/17 Requesting Physician: Osbaldo Tom Primary Care Provider: Priyank Guajardo MD - Consult Narrative Palliative Care/Comfort Measures: Palliative care Reason for consult: Goals of care History of present illness: Mr. Cárdenas is a 81 year old male with CAD s/p CABG, PVD, COPD, DM, PAF presents as transfer from [facility] after cardiopulmonary arrest on Apr 16, 2017. Pt was intubated and is extubated successfully. All history obtained from medical records, current chart and bedside family. Per records, pt had SOB while at home and activated medical alert. Per [place] [facility] notes, pt was unresponsive and in cardiac arrest upon arrival with bystander CPR. Also per [place] ED notes, pt had 20min downtime before ACLS arrival. Reportedly received CPR, epinephrine x2 prior to arrival at [facility]. No defibrillation. Had ROSC prior to arrival at [facility] ED with Adams airway in place. No EMS records available for my review. While at [facility] ED, had emergent intubation. During intubation, pt had bradycardia and ?PEA- had CPR, epinephrine, bicarb with ROSC. Palliative care has been consulted for goals of care as patient with history of CKD and family and patient doesn't desire to do life long dialysis. BUN 45, Creatinine 4.32, GFR 16. Upon this consult, the patient is awake and able to provide limited history as he is s/p cardiac arrest. He has had trouble swallowing per nursing. CC: Reinaldo Castillo MD Past Med Surg Social Fam HX - Past Medical History Attestation: Yes The following information was validated with the patient. Source: old records reviewed, obtained from family, nursing notes reviewed Medical history: COPD, coronary artery disease, CVA, diabetes, hyperlipidemia, hypertension, peripheral artery disease, renal disease Psychiatric history: anxiety, depression - Past Surgical History Surgical History: appendectomy, cholecystectomy, colectomy, coronary bypass ( CABG), LE Bypass, orthopedic, other, vascular surgery - Social History Smoking Status: Former smoker (former 2ppd x 30years) Smokeless Tobacco Status: No Alcohol use: rarely Drug use: none - Family History Father Living Status: Hx Family Cardiac Disorders: Yes ([place]) Medications and Allergies Atorvastatin [Lipitor] 40 mg PO HS #0 02/04/16 [History] Levothyroxine [Synthroid] 50 mcg PO DAILY 02/04/16 [History] Ipratropium/Albuterol Neb [Duoneb] 3 ml IH [id number] PRN #0 inhsol 02/09/16 [Rx] Ascorbic Acid [Vitamin C] 500 mg PO 0630 #30 tablet 02/19/16 [Rx] Cholecalciferol (D-3) [Vitamin D] 2,000 unit PO DAILY #60 tablet 02/19/16 [Rx] Ferrous Sulfate 325 mg PO 0630 #30 tablet 02/19/16 [Rx] Bumetanide [Bumex] 1 mg PO DAILY 04/17/17 [History] Carvedilol 3.125 mg PO BID 04/17/17 [History] Glimepiride [Amaryl] 4 mg PO DAILY 04/17/17 [History] Lisinopril [Zestril] 20 mg PO DAILY 04/17/17 [History] Pioglitazone [Actos] 45 mg PO DAILY 04/17/17 [History] Sertraline [Zoloft] 100 mg PO DAILY 04/17/17 [History] Warfarin [Coumadin] 3 mg PO MOWEFR 04/17/17 [History] Warfarin [Coumadin] 3.5 mg PO SUTUTHSA 04/17/17 [History] amLODIPine [Norvasc] 5 mg PO DAILY 04/17/17 [History] 3 Allergy/AdvReac Type Severity Reaction Status Date / Time No Known Allergies Allergy Verified 04/17/17 12:04 ROS unobtainable: due to mental status (limited. Patient denies pain or discomfort) - Constitutional Constitutional ROS PAL: fatigue - Cardiovascular Cardiovascular ROS: orthopnea - Respiratory Respiratory: dyspnea on exertion - Gastrointestinal Gastrointestinal: constipation (occasional) - Musculoskeletal Musculoskeletal ROS IM: muscle weakness Palliative Care-Exam - Constitutional Vitals: Temp Pulse Resp BP Pulse Ox 98.4 F 81 23 129/31 96 04/22/17 07:55 04/22/17 09:14 04/22/17 09:14 04/22/17 09:14 04/22/17 09:14 General appearance: Present: cooperative, no acute distress - Head Head Exam: Present: atraumatic, normal inspection - Eye Eye exam: Present: PERRL - ENT ENT exam: Present: mucous membranes moist - Expanded ENT Exam Mouth Exam: Present: moist - Neck Neck exam: Present: tenderness Additional comments: s/p intubation unable to swallow. - Respiratory Respiratory exam: Present: decreased breath sounds - Expanded Respiratory Exam Location: decreased breath sounds: Left, Right, Lower - Cardiovascular Cardiovascular exam: Present: RRR, +S1, +S2 - Expanded Cardiovascular Exam Peripheral pulses: 1+: Femoral (L) PM, Femoral (R) PM, Posterior Tibialis (L), Posterior Tibialis (R), 2+: Carotid (L) PM, Carotid (R) PM, Radial (L), Radial ( R), Dorsalis Pedis (L) PM, Dorsalis Pedis (R) PM - GI/Abdominal Exam GI/Abdominal exam: Present: normal bowel sounds, soft - Catheter Type: Urethral (Bhakta) (only 25 ml out in past 24 hrs) - Neurological Exam Neurological exam: Present: alert - Expanded Neurological Exam Patient oriented to: Present: person Cranial nerves: gag reflex: Normal Coma Scale Eye Opening: Spontaneous Coma Scale Motor Response: Obeys Commands Coma Scale Verbal Response: Confused Coma Scale Total: 14 - Psychiatric Psychiatric exam: Present: normal affect - Skin Skin exam: Present: pallor, warm Internal Medicine - CN: Reslt - Labs CBC & Chem 7: 04/22/17 04:27 04/22/17 04:27 Labs: Short CBC 04/22/17 Range/Units 04:27 WBC 11.9 H (4.3-11.1) K/mcL Hgb 8.8 L (12.9-16.9) g/dL Hct 28.6 L (37.5-50.1) % Plt Count 289 (140-400) K/mcL Neutrophils # 8.7 (1.6-8.9) K/mcL BMP 04/22/17 04:27 Sodium 141 Potassium 4.1 Chloride 101 Carbon Dioxide 29 BUN 45 H D Creatinine 4.32 H Glucose 126 H Calcium 7.9 L - ABG Interpretation ABG results: ABG ABG pH 7.39 pH Units (7.32-7.45) 04/20/17 03:44 ABG pCO2 51 mmHg (35-45) H 04/20/17 03:44 ABG pO2 64 mmHg (85-104) L 04/20/17 03:44 ABG O2 Saturation 91 % (95-98) L 04/20/17 03:44 PT/INR, D-dimer PT 12.2 Seconds (9.4-12.1) H 04/21/17 04:47 - Impressions Impressions KUB X-Ray 04/20/17 09:48 IMPRESSION: Nonspecific bowel gas pattern. No evidence of high-grade small bowel obstruction. D/ / 04/20/2017 10:36:02 Se Dallas MD / bcarter Interpreting Provider: Se Dallas MD Head CT 04/21/17 17:30 IMPRESSION: No acute intracranial abnormality. D/ / Vicky Dennison Cha, MD / Vicky Dennison Cha, MD Interpreting Provider: Vicky Dennison Cha, MD Consult Discharge Plan - Plan Referrals: Priyank Guajardo MD [Primary Care Provider] - Palliative Quality Palliative Quality: Screen for Code Status: Yes, Screen for Goals of Care: Yes, Screen for Pain: Yes, If Pain Regimen Started, Initiate Bowel Regimen: Yes, Screen for Nausea/Vomitting: Yes Code Status: 04/16/17 00:24 Resuscitation Status: Active [RES] Routine Comment: Resuscitation Status: Full Code 04/17/17 13:19 Resuscitation Status: Active [RES] Routine Comment: Resuscitation Status: DNR-Comfort Care-Arrest 04/20/17 07:43 Resuscitation Status: Active [RES] Routine Comment: Resuscitation Status: [id number] 04/22/17 07:09 CODE [Resuscitation Status: Active] [RES] Routine Comment: Resuscitation Status: DNR-Comfort Care
[2017-04-22] MEDS ORDERED: Ondansetron 4 MG/2 ML VIAL IVP PRN (11:37)
[2017-04-22] MEDS ORDERED: Ipratropium/Albuterol Neb 3 ML IH PRN (11:37)
[2017-04-22] MEDS: *HR* LORazepam 2 MG/ML VIAL IVP PRN ×4 (12:47→23:45)
--- NOTE | 2017-04-22 14:52 | Event Note ---
Date of Encounter: 04/22/17 Time of Encounter: 14:50 I have evaluated the patient at the bedside. He is somnolent, difficult to arouse, in no acute distress. Heart is regular. There is palpable apical heave. Plan: Comfort care only. Oral oxycodone as needed for pain and IV Ativan for anxiety. Stop all blood draws and needle sticks. Plan was discussed with patient's family members at the bedside were in agreement.
[2017-04-22] MEDS: Piperacillin/Tazobactam 3.375 GM/200 ML BAG IVPB SCH (16:33)
[2017-04-22] MEDS: OxyCODONE CONC 5 MG/0.25 ML ORAL.SYG SL PRN (20:54)
[2017-04-23] MEDS ORDERED: OxyCODONE CONC 5 MG/0.25 ML ORAL.SYG PO ONE (00:05)
[2017-04-23] MEDS ORDERED: OxyCODONE CONC 5 MG/0.25 ML ORAL.SYG SL ONE (00:07)
[2017-04-23] MEDS: *HR* LORazepam 2 MG/ML VIAL IVP PRN ×6 (02:58→17:37)
[2017-04-23] MEDS: OxyCODONE CONC 5 MG/0.25 ML ORAL.SYG SL PRN (02:58)
[2017-04-23] MEDS: Ipratropium/Albuterol Neb 3 ML IH SCH ×4 (04:07→16:27)
[2017-04-23] MEDS ORDERED: Haloperidol Lactate 5 MG/ML VIAL IVP PRN (04:58)
[2017-04-23] MEDS: *HR* Morphine 2 MG/ML SYRINGE IVP PRN ×2 (05:20→09:05)
[2017-04-23] MEDS: OxyCODONE CONC 5 MG/0.25 ML ORAL.SYG PO PRN ×3 (08:09→15:43)
[2017-04-23] MEDS ORDERED: FentaNYL (PF) 1,000 MCG in 0.9 % Sodium Chloride 80 ML IVC SCH ×2 (09:45→17:41)
--- NOTE | 2017-04-23 10:13 | Palliative Progress Note ---
Date of Encounter: 04/23/17 Time of Encounter: 09:00 - Assessment and plan (1) Pain Current Visit: Yes Status: Acute Assessment and plan: Patient with moaning and facial grimacing. IV morphine given overnight per 2 doses. Will DC morphine and add Fentanyl drip as this is preferred opioid in comfort care end stage renal disease. Start drip at 20 mcg and continue oral oxycodone for BTP. Discussed goals of comfort with family and they agree and desire to have ultimate comfort. (2) Dyspnea Current Visit: Yes Status: Acute Assessment and plan: Patient with shallow rapid respirations. Scattered rhonchi throughout lung gorman. 15L O2 per face mask. Eyes closed. skin warm and slightly clammy. Respirations 32. Positioned with HOB up. Continue O2, duonebs and will add Fentanyl gtt at low dose. Patient with renal failure and goals are for comfort care. Family education provided and they agree to fentanyl drip for dyspnea as well as pain. (3) Anxiety Current Visit: No Status: Acute Assessment and plan: Patient restless throughout night and with moaning and yelling. Ativan given PRN. 7 mg given over past 24 hrs. Will monitor. (4) Agitation Current Visit: No Status: Acute Assessment and plan: Patient restless overnight. 1mg given for agitation in past 24 hours. Currently , resting with occasional moaning. Will monitor. (5) Goals of care, counseling/discussion Current Visit: Yes Status: Acute Assessment and plan: Patient is DNRCC - Comfort care. Had restless night of moaning, yelling and kicking arms and legs. Medications adjusted for comfort and family agrees to plane. Will continue to adjust based on need. Patient will be transitioned to GIP in AM. (6) Acute on chronic renal insufficiency Current Visit: Yes Status: Acute Assessment and plan: Family desires only comfort care as patient with end stage renal impairment and no desire to do dialysis. (7) VAHID (acute kidney injury) Current Visit: Yes Status: Acute (8) Cardiac arrest Current Visit: Yes Status: Acute (9) COPD (chronic obstructive pulmonary disease) Current Visit: Yes Status: Chronic Qualifiers: COPD type: unspecified COPD Qualified Code(s): J44.9 - Chronic obstructive pulmonary disease, unspecified - Time Spent With Patient Total time spent is greater than 50% in coordination of care (as documented) at patient's floor/unit and/or counseling patient: 25 - 35 minutes - Subjective Interval history: Daughter Mala and son at bedside. Patient with restless night of moaning and yelling in pain. Patient eyes closed, with continued moaning and right leg jerking. Goals of comfort discussed with family. Assessment complete. - Constitutional Vitals: Abnormal lab results WBC 11.9 K/mcL (4.3-11.1) H 04/22/17 04:27 RBC 3.44 M/mcL (4.19-5.50) L 04/22/17 04:27 Hgb 8.8 g/dL (12.9-16.9) L 04/22/17 04:27 Hct 28.6 % (37.5-50.1) L 04/22/17 04:27 MCH 25.6 pg (28.0-33.3) L 04/22/17 04:27 MCHC 30.8 g/dL (31.6-35.5) L 04/22/17 04:27 RDW 17.3 % (11.5-14.5) H 04/22/17 04:27 Nucleated RBCs/100 WBC 0.2 /100 WBC (0) H 04/22/17 04:27 PT 12.2 Seconds (9.4-12.1) H 04/21/17 04:47 APTT 64.7 Seconds (26.0-36.0) H 04/22/17 04:27 ABG pCO2 51 mmHg (35-45) H 04/20/17 03:44 ABG pO2 64 mmHg (85-104) L 04/20/17 03:44 ABG HCO3 31 mEq/L (21-27) H 04/20/17 03:44 ABG Total CO2 32 mEq/L (20-26) H 04/20/17 03:44 ABG O2 Saturation 91 % (95-98) L 04/20/17 03:44 ABG Base Excess 5 mEq/L (-2 to 3) H 04/20/17 03:44 VBG pH 7.24 pH Units (7.32-7.42) L 04/17/17 10:00 VBG pCO2 62 mmHg (41-51) H 04/17/17 10:00 BUN 45 mg/dL (8-26) H D 04/22/17 04:27 Creatinine 4.32 mg/dL (0.72-1.25) H 04/22/17 04:27 Est GFR ( Amer) 16 (> 60) L 04/22/17 04:27 Est GFR (Non-Af Amer) 13 (> 60) L 04/22/17 04:27 Glucose 126 mg/dL (70-99) H 04/22/17 04:27 POC Glucose 146 (58-89) H 04/22/17 07:29 Calculated Osmolality 305 (280-300) H 04/22/17 04:27 Uric Acid 10.0 mg/dL (3.5-7.2) H 04/16/17 13:25 Calcium 7.9 mg/dL (8.6-10.8) L 04/22/17 04:27 Phosphorus 5.3 mg/dL (2.3-4.7) H 04/22/17 04:27 AST 43 Units/L (5-34) H 04/18/17 04:45 Creatine Kinase 361 Units/L (30-200) H 04/17/17 14:50 Troponin I 9.60 ng/mL (0-0.03) H* 04/17/17 23:25 B-Natriuretic Peptide 1199 pg/mL (0-100) H 04/16/17 13:25 Albumin 2.3 g/dL (3.5-5.0) L 04/18/17 04:45 Globulin 3.8 g/dL (2.4-3.5) H 04/18/17 04:45 Albumin/Globulin Ratio 0.6 (1.1-2.2) L 04/18/17 04:45 Urine Clarity Turbid (Clear) A 04/17/17 06:37 Ur Specific [place] 1.026 (1.010-1.025) H 04/17/17 06:37 Urine Protein 100 mg/dL (Neg-Trace) H 04/17/17 06:37 Urine Glucose (UA) 100 mg/dL (Normal) H 04/17/17 06:37 Urine Ketones Trace mg/dL (Negative) H 04/17/17 06:37 Urine Blood Large (Negative) H 04/17/17 06:37 Urine Bilirubin Small (Negative) H 04/17/17 06:37 Ur Leukocyte Esterase Small (Negative) H 04/17/17 06:37 - Head Head exam: Present: atraumatic, normal inspection - Eye Eye exam: Present: PERRL Pupils: Present: PERRL - ENT ENT exam: Present: mucous membranes moist - Neck Neck exam: Present: tenderness - Respiratory Respiratory exam: Present: rhonchi - Expanded Respiratory Exam Location: decreased breath sounds: Left, Right, Lower, rhonchi: Left, Right, Upper - Cardiovascular Cardiovascular exam: Present: RRR, +S1, +S2 - Expanded Cardiovascular Exam Peripheral pulses: 1+: Femoral (L) PM, Femoral (R) PM, Posterior Tibialis (L), Posterior Tibialis (R), 2+: Carotid (L) PM, Carotid (R) PM, Radial (L), Radial ( R), Dorsalis Pedis (L) PM, Dorsalis Pedis (R) PM - GI/Abdominal GI/Abdominal exam: Present: normal bowel sounds, soft - Extremities Exam Extremities exam: Present: normal inspection - Neurological Exam Neurological exam: Present: altered (moaning) - Psychiatric Psychiatric exam: Present: flat affect - Skin Skin exam: Present: pallor, warm Palliative Quality Palliative Quality: Screen for Code Status: Yes, Screen for Goals of Care: Yes, Screen for Pain: Yes, If Pain Regimen Started, Initiate Bowel Regimen: Yes, Screen for Nausea/Vomitting: Yes Code Status: 04/16/17 00:24 Resuscitation Status: Active [RES] Routine Comment: Resuscitation Status: Full Code 04/17/17 13:19 Resuscitation Status: Active [RES] Routine Comment: Resuscitation Status: DNR-Comfort Care-Arrest 04/20/17 07:43 Resuscitation Status: Active [RES] Routine Comment: Resuscitation Status: [id number] 04/22/17 07:09 CODE [Resuscitation Status: Active] [RES] Routine Comment: Resuscitation Status: DNR-Comfort Care - Labs CBC & Chem 7: 04/22/17 04:27 04/22/17 04:27 - ABG Interpretation ABG results: ABG ABG pH 7.39 pH Units (7.32-7.45) 04/20/17 03:44 ABG pCO2 51 mmHg (35-45) H 04/20/17 03:44 ABG pO2 64 mmHg (85-104) L 04/20/17 03:44 ABG O2 Saturation 91 % (95-98) L 04/20/17 03:44 PT/INR, D-dimer PT 12.2 Seconds (9.4-12.1) H 04/21/17 04:47 Consult Discharge Plan - Plan Referrals: Priyank Guajardo MD [Primary Care Provider] -
[2017-04-23 10:56] VITALS: BP 83/57
--- NOTE | 2017-04-23 14:46 | Internal Med Progress Note ---
Date of Encounter: 04/23/17 Time of Encounter: 09:00 - Assessment and plan (1) Metabolic encephalopathy Current Visit: Yes Status: Acute Assessment and plan: Secondary to multiple medical comorbidities. End-of-life care. (2) Dyspnea Current Visit: Yes Status: Acute Assessment and plan: Continue with oxygen by facemask. Qualifiers: Dyspnea type: shortness of breath Qualified Code(s): R06.02 - Shortness of breath; R06.00 - Dyspnea, unspecified; R06.01 - Orthopnea (3) Anxiety Current Visit: No Status: Acute Assessment and plan: Anxiety and agitation demonstrated by uncontrolled head movements and limb movements. We will treat somewhat IV Ativan. (4) Agitation Current Visit: No Status: Acute Assessment and plan: We will treat restlessness with IV benzodiazepines. (5) Pain Current Visit: Yes Status: Acute Assessment and plan: Pain secondary to chest trauma due to CPR. We will treat him with IV fentanyl. He is at high risk for morbidity mortality and complications due to treatment with IV control substances. - Subjective Interval history: Patient is nonverbal and cannot provide any history. Per family at the bedside patient has been having involuntary right lower extremity movements where he lifts his leg up from the bed, this started last night. This is unusual for him. - Constitutional Vitals: Temp Pulse Resp BP Pulse Ox 98.0 F 92 16 83/57 89 04/23/17 10:55 04/23/17 10:55 04/23/17 11:35 04/23/17 10:55 04/23/17 11:35 General appearance: Present: no acute distress - Respiratory Respiratory exam: Present: decreased breath sounds, CTAB. Absent: accessory muscle use, rales, rhonchi, wheezes - Cardiovascular Cardiovascular exam: Present: RRR, +S1, +S2. Absent: diastolic murmur, gallop, rubs, systolic murmur - GI/Abdominal GI/Abdominal exam: Present: normal bowel sounds, soft, no peritoneal signs. Absent: distended, tenderness - Extremities Exam Extremities exam: Present: warm, radial pulses palpable and symmetrical. Absent : calf tenderness, cyanotic, pedal edema - Skin Skin exam: Present: dry, intact Internal Medicine: Result - Labs CBC & Chem 7: 04/22/17 04:27 04/22/17 04:27 - ABG Interpretation ABG results: ABG ABG pH 7.39 pH Units (7.32-7.45) 04/20/17 03:44 ABG pCO2 51 mmHg (35-45) H 04/20/17 03:44 ABG pO2 64 mmHg (85-104) L 04/20/17 03:44 ABG O2 Saturation 91 % (95-98) L 04/20/17 03:44 PT/INR, D-dimer PT 12.2 Seconds (9.4-12.1) H 04/21/17 04:47 - VTE Documentation of Mechanical Device: Intermittent pneumatic compression device Consult Discharge Plan - Plan Referrals: Priyank Guajardo MD [Primary Care Provider] -
--- NOTE | 2017-05-05 08:14 | Discharge Summary ---
Date of Encounter: 04/23/17 Time of Encounter: 15:00 - Discharge Diagnosis (1) Metabolic encephalopathy Priority: Secondary Status: Acute (2) Dyspnea Priority: Secondary Status: Acute Qualifiers: Dyspnea type: shortness of breath Qualified Code(s): R06.02 - Shortness of breath; R06.00 - Dyspnea, unspecified; R06.01 - Orthopnea (3) Anxiety Priority: Secondary Status: Acute (4) Agitation Priority: Secondary Status: Acute (5) Pain Priority: Secondary Status: Acute (6) Acute and chronic respiratory failure with hypercapnia Priority: Secondary Status: Acute (7) Acute renal failure (ARF) Priority: Secondary Status: Acute Qualifiers: Acute renal failure type: with acute tubular necrosis Qualified Code(s): N17.0 - Acute kidney failure with tubular necrosis (8) Coffee ground emesis Priority: Secondary Status: Acute (9) DMII (diabetes mellitus, type 2) Priority: Secondary Status: Acute Qualifiers: Diabetes mellitus complication status: without complication Qualified Code( s): E11.9 - Type 2 diabetes mellitus without complications (10) Non-STEMI (non-ST elevated myocardial infarction) Priority: Primary Status: Acute (11) PVD (peripheral vascular disease) Priority: Secondary Status: Chronic (12) S/P CABG (coronary artery bypass graft) Priority: Secondary Status: Chronic (13) Pneumonia Priority: Secondary Status: Resolved Qualifiers: Pneumonia type: due to unspecified organism Laterality: bilateral Lung location: unspecified part of lung Qualified Code(s): J18.9 - Pneumonia, unspecified organism (14) History of cardiac arrest Priority: Secondary Status: Acute - Discharge Medications Home Medications: Atorvastatin [Lipitor] 40 mg PO HS #0 02/04/16 [History] Levothyroxine [Synthroid] 50 mcg PO DAILY 02/04/16 [History] Ipratropium/Albuterol Neb [Duoneb] 3 ml IH [id number] PRN #0 inhsol 02/09/16 [Rx] Ascorbic Acid [Vitamin C] 500 mg PO 0630 #30 tablet 02/19/16 [Rx] Cholecalciferol (D-3) [Vitamin D] 2,000 unit PO DAILY #60 tablet 02/19/16 [Rx] Ferrous Sulfate 325 mg PO 0630 #30 tablet 02/19/16 [Rx] Bumetanide [Bumex] 1 mg PO DAILY 04/17/17 [History] Carvedilol 3.125 mg PO BID 04/17/17 [History] Glimepiride [Amaryl] 4 mg PO DAILY 04/17/17 [History] Lisinopril [Zestril] 20 mg PO DAILY 04/17/17 [History] Pioglitazone [Actos] 45 mg PO DAILY 04/17/17 [History] Sertraline [Zoloft] 100 mg PO DAILY 04/17/17 [History] Warfarin [Coumadin] 3 mg PO MOWEFR 04/17/17 [History] Warfarin [Coumadin] 3.5 mg PO SUTUTHSA 04/17/17 [History] amLODIPine [Norvasc] 5 mg PO DAILY 04/17/17 [History] Allergies/Adverse Reactions: 3 Allergy/AdvReac Type Severity Reaction Status Date / Time No Known Allergies Allergy Verified 04/17/17 12:04 Date of admission: 04/16/17 00:20 Primary care physician: Priyank Guajardo MD Consults: 04/16/17 00:30 Consult to Cardiology [CONS] Routine Comment: Consulting Provider: Cardiology [place] Reason for Consult: cardiac arrest Call Completed: No 04/16/17 05:45 Consult to Pulmonology [CONS] Routine Consulting Provider: [facility] [place] Reason for Consult: cardiac arrest, respiratory failure Call Completed: No 04/16/17 07:05 Consult to Nephrology [CONS] Routine Consulting Provider: [facility] Reason for Consult: VAHID on CKD, HyperK Call Completed: Yes 04/17/17 09:43 Consult to Interventional Radiology [CONS] Routine Consulting Provider: Radiology Interventional [place] Reason for Consult: place temporary dialysis catheter Time Notified: 09:43 Call Completed: No 04/17/17 09:45 Consult to Dialysis [CONS] ONCE 04/17/17 12:56 Consult to Gastroenterology [CONS] Stat Consulting Provider: Gastroenterology [place] Reason for Consult: GI Bleed Call Completed: No 04/18/17 08:15 Consult to Dialysis [CONS] ONCE 04/19/17 08:00 Consult to Dialysis [CONS] ONCE 04/21/17 09:07 Consult to Speech Therapy [CONS] Routine Comment: Evaluate, develop and implement POC Reason for Consult: Slurred speech. Concern of aspiration. Appreciate swallow evaluation. Call Completed: No 04/21/17 12:45 Consult to Dialysis [CONS] ONCE 04/22/17 07:32 Consult to Palliative Care [CONS] Routine Comment: Consulting Provider: Palliative [facility] [place] Reason for Consult: Comfort care Call Completed: No - Patient Status Disposition: Overall status at discharge: other - Discharge Instructions Follow Up With: Priyank Guajardo MD [Primary Care Provider] - Additional Instructions: The patient was examined on the palliative care floor while still alive in a terminal condition. This discharge summary has been completed postmortem. Hospital course: Please refer to the history and physical, consultation notes, and progress notes for further details about this prolonged hospitalization. Mr. Cárdenas is a 82 year old male with history of hypertension, peripheral vascular disease, coronary artery disease status post CABG was brought to the hospital status post cardiac arrest in the field, resuscitated by family members and EMS. He was admitted to the ICU and intubated. He suffered multiple complications including pneumonia, ventilator dependent respiratory failure, acute renal failure and GI bleed. He had a prolonged hospital course. Palliative care service was consulted and goals of care will be addressed with the family. The family opted for comfort care only. He was terminally extubated and transferred to the palliative care floor. Over the last 2 days he was treated with comfort medications only. He peacefully on 2016. - Time Spent with Patient Total time spent providing and/or coordinating discharge services: - Constitutional Vitals: Temp Pulse Resp BP Pulse Ox 99.2 F 92 16 83/57 89 04/23/17 16:04 04/23/17 10:55 04/23/17 11:35 04/23/17 10:55 04/23/17 11:35 General appearance: Present: no acute distress (Sedated, unresponsive.) - Respiratory Respiratory exam: Present: CTAB. Absent: accessory muscle use, rales, rhonchi, wheezes - Cardiovascular Cardiovascular exam: Present: RRR, +S1, +S2. Absent: diastolic murmur, gallop, rubs, systolic murmur - VTE Documentation of Mechanical Device: Intermittent pneumatic compression device
== END 2017-04-23 20:25 | disposition expired ==
LOC: ICNU 00:20 → SUATTDRO 00:20 → 2ANU 04-22 11:16
PROVIDERS: ADMIT Pediatrics; ATTEND Internal Medicine